=== PATIENT | male | born 1945 | race Caucasian/White ===

== ENCOUNTER → 2017-04-29 11:17 | Outpatient (CLI) | payer MEDICARE, MEDICAID, SELFPAY ==
[2017-04-29 11:34] LABS: Basophils # 0.1 K/mm3 (0-0.2); Basophils % 1.1 % (0.1-2.0); Eosinophils # 0.4 K/mm3 (0.0-0.4); Eosinophils % 6.4 % (0.1-12.0); Hematocrit 41.9 % (42.0-52.0); Hemoglobin 13.8 g/dL (14.1-18.0); Lymphocytes # 1.3 K/mm3 (0.7-4.5); Mean Corpuscular HGB Conc 32.9 g/dL (31.8-35.4); Mean Corpuscular Volume 94.3 fl (80-94); Mean Platelet Volume 7.2 fl (7.4-10.4); Monocytes # 0.4 K/mm3 (0.1-1.0); Monocytes % 6.3 % (1.7-9.3); Neutrophils # 3.6 K/mm3 (1.8-7.8); Neutrophils % 64.2 % (37.0-80.0); Platelet Count 290 K/mm3 (142-424); Red Blood Count 4.44 M/mm3 (4.60-6.20); Red Cell Distribution Width 13.5 % (11.5-17.5); White Blood Count 5.7 K/mm3 (4.8-10.8)
[2017-04-29 13:14] LABS: Alanine Aminotransferase 19 U/L (12-78); Albumin Level 4.4 gm/dL (3.4-5.0); Albumin/Globulin Ratio 1.9 (1.1-1.8); Alkaline Phosphatase 128 U/L (46-116); Anion Gap 10.5 mEq/L (5-15); Aspartate Amino Transferase 20 U/L (15-37); Bilirubin,Total 0.6 mg/dL (0.2-1.0); Blood Urea Nitrogen 12 mg/dL (7-18); Calcium 9.3 mg/dL (8.5-10.1); Carbon Dioxide 29 mmol/L (21.0-32.0); Chloride 106 mmol/L (98-107); Creatinine,Serum 1.09 mg/dL (0.70-1.30); Estimated Glomerular Filt Rate 66 ml/min (>60); GFR (African American) 80 ML/MIN (>60); Globulin 2.3 gm/dl (1.3-3.2); Glucose 102 mg/dL (74-106); Potassium 4.5 mmoL/L (3.5-5.1); Sodium 141 mmol/L (136-145); Total Protein,Serum 6.7 gm/dL (6.4-8.2)
== END ==
PROVIDERS: PCP Internal Medicine; Visit Provider Internal Medicine
DX: C90.00 Multiple myeloma not having achieved remission (principal)
CPT/HCPCS: 36415; 80053; 85025

== ENCOUNTER → 2017-05-05 11:16 | Outpatient (CLI) | payer MEDICARE, MEDICAID, SELFPAY ==
[2017-05-05 13:10] LABS: Anion Gap 9.9 mEq/L (5-15); Blood Urea Nitrogen 13 mg/dL (7-18); Carbon Dioxide 29 mmol/L (21.0-32.0); Chloride 104 mmol/L (98-107); Creatinine,Serum 0.95 mg/dL (0.70-1.30); Estimated Glomerular Filt Rate 78 ml/min (>60); GFR (African American) 94 ML/MIN (>60); Glucose 88 mg/dL (74-106); Potassium 3.9 mmoL/L (3.5-5.1); Sodium 139 mmol/L (136-145)
[2017-06-25 12:19] LABS: Miscellaneous Test SEE SEPERATE REPORT
== END ==
PROVIDERS: PCP Internal Medicine; Visit Provider Internal Medicine
DX: C90.00 Multiple myeloma not having achieved remission (principal)
CPT/HCPCS: 36415; 80048; 88184; 88185

== ENCOUNTER → 2017-06-15 10:38 | Outpatient (CLI) | payer MEDICARE, MEDICAID, SELFPAY ==
[2017-06-15 10:54] LABS: Basophils % 1.3 % (0.1-2.0); Eosinophils # 0.1 K/mm3 (0.0-0.4); Eosinophils % 2.7 % (0.1-12.0); Hematocrit 38.6 % (42.0-52.0); Hemoglobin 12.8 g/dL (14.1-18.0); Lymphocytes # 0.8 K/mm3 (0.7-4.5); Lymphocytes % 23.7 K/mm3 (10-50); Mean Corpuscular HGB Conc 33.2 g/dL (31.8-35.4); Mean Corpuscular Hemoglobin 31.4 pg (27.0-31.2); Mean Corpuscular Volume 94.8 fl (80-94); Mean Platelet Volume 7.3 fl (7.4-10.4); Monocytes # 0.4 K/mm3 (0.1-1.0); Monocytes % 11.6 % (1.7-9.3); Neutrophils % 60.7 % (37.0-80.0); Platelet Count 340 K/mm3 (142-424); Red Blood Count 4.08 M/mm3 (4.60-6.20); Red Cell Distribution Width 14.1 % (11.5-17.5); White Blood Count 3.3 K/mm3 (4.8-10.8)
[2017-06-15 11:26] LABS: Alanine Aminotransferase 31 U/L (12-78); Albumin Level 3.5 gm/dL (3.4-5.0); Albumin/Globulin Ratio 1.2 (1.1-1.8); Alkaline Phosphatase 178 U/L (46-116); Anion Gap 8.8 mEq/L (5-15); Aspartate Amino Transferase 23 U/L (15-37); Bilirubin,Total 0.8 mg/dL (0.2-1.0); Blood Urea Nitrogen 10 mg/dL (7-18); Calcium 8.9 mg/dL (8.5-10.1); Carbon Dioxide 29 mmol/L (21.0-32.0); Chloride 102 mmol/L (98-107); Estimated Glomerular Filt Rate 73 ml/min (>60); GFR (African American) 89 ML/MIN (>60); Globulin 2.9 gm/dl (1.3-3.2); Glucose 100 mg/dL (74-106); Potassium 3.8 mmoL/L (3.5-5.1); Sodium 136 mmol/L (136-145); Total Protein,Serum 6.4 gm/dL (6.4-8.2)
--- NOTE | 2017-06-17 13:48 | SW/DCPLANNER ---
Follow up phone call 05/06/17 BRIEN: Patient stated that he was having a bad day yesterday with a lot of pain in his legs. Patient has stated that today is a better day and he did not have any needs for any further resources at this time. Date of visit: 05/05/17
== END ==
PROVIDERS: Visit Provider Internal Medicine
DX: C90.00 Multiple myeloma not having achieved remission (principal); R63.6 Underweight
CPT/HCPCS: 36415; 80053; 85025

== ENCOUNTER → 2017-07-12 11:06 | Outpatient (CLI) | payer MEDICARE, MEDICAID, SELFPAY ==
[2017-07-13 10:24] LABS: Immunoglobulin G, Qn 455 mg/dL (700-1600)
[2017-07-13 13:45] LABS: Immunoglobulin A, Qn 227 mg/dL (61-437); Immunoglobulin M, Qn 47 mg/dL (15-143)
[2017-07-13 15:17] LABS: Albumin 3.7 g/dL (2.9-4.4); Alpha-1-Globulin 0.2 g/dL (0.0-0.4); Alpha-2-Globulin 0.7 g/dL (0.4-1.0); Gamma Globulin 0.5 g/dL (0.4-1.8)
== END ==
PROVIDERS: Visit Provider Nurse Practitioner
DX: C90.00 Multiple myeloma not having achieved remission (principal)
CPT/HCPCS: 36415; 82784; 84165

== ENCOUNTER → 2017-09-21 09:48 | Outpatient (CLI) | payer MEDICARE, MEDICAID, SELFPAY ==
[2017-09-21 10:33] LABS: Basophils # 0.1 K/mm3 (0-0.2); Basophils % 1.5 % (0.1-2.0); Eosinophils # 0.4 K/mm3 (0.0-0.4); Eosinophils % 7.1 % (0.1-12.0); Hematocrit 43.8 % (42.0-52.0); Hemoglobin 13.9 g/dL (14.1-18.0); Lymphocytes # 1.4 K/mm3 (0.7-4.5); Lymphocytes % 26.1 K/mm3 (10-50); Mean Corpuscular HGB Conc 31.8 g/dL (31.8-35.4); Mean Corpuscular Hemoglobin 30.1 pg (27.0-31.2); Mean Corpuscular Volume 94.7 fl (80-94); Monocytes # 0.4 K/mm3 (0.1-1.0); Monocytes % 6.5 % (1.7-9.3); Neutrophils # 3.1 K/mm3 (1.8-7.8); Neutrophils % 58.7 % (37.0-80.0); Platelet Count 285 K/mm3 (142-424); Red Blood Count 4.62 M/mm3 (4.60-6.20); Red Cell Distribution Width 13.7 % (11.5-17.5); White Blood Count 5.3 K/mm3 (4.8-10.8)
[2017-09-21 11:13] LABS: Alanine Aminotransferase 26 U/L (12-78); Albumin Level 4.1 gm/dL (3.4-5.0); Albumin/Globulin Ratio 1.6 (1.1-1.8); Alkaline Phosphatase 133 U/L (46-116); Anion Gap 11.3 mEq/L (5-15); Aspartate Amino Transferase 23 U/L (15-37); Bilirubin,Total 0.6 mg/dL (0.2-1.0); Blood Urea Nitrogen 13 mg/dL (7-18); Calcium 9.4 mg/dL (8.5-10.1); Carbon Dioxide 30 mmol/L (21.0-32.0); Chloride 103 mmol/L (98-107); Creatinine,Serum 1.16 mg/dL (0.70-1.30); Estimated Glomerular Filt Rate 62 ml/min (>60); GFR (African American) 75 ML/MIN (>60); Globulin 2.5 gm/dl (1.3-3.2); Glucose 100 mg/dL (74-106); Potassium 4.3 mmoL/L (3.5-5.1); Sodium 140 mmol/L (136-145); Total Protein,Serum 6.6 gm/dL (6.4-8.2)
== END ==
PROVIDERS: Visit Provider Internal Medicine
DX: C90.00 Multiple myeloma not having achieved remission (principal)
CPT/HCPCS: 36415; 80053; 85025

== ENCOUNTER → 2018-01-26 09:51 | Outpatient (CLI) | payer MEDICARE, MEDICAID, SELFPAY ==
[2018-01-26 10:27] LABS: Basophils # 0.1 K/mm3 (0-0.2); Basophils % 1.5 % (0.1-2.0); Eosinophils # 0.5 K/mm3 (0.0-0.4); Eosinophils % 7.4 % (0.1-12.0); Hematocrit 42.2 % (42.0-52.0); Hemoglobin 13.9 g/dL (14.1-18.0); Lymphocytes # 1.5 K/mm3 (0.7-4.5); Lymphocytes % 23.5 K/mm3 (10-50); Mean Corpuscular HGB Conc 33.1 g/dL (31.8-35.4); Mean Corpuscular Hemoglobin 31.2 pg (27.0-31.2); Mean Corpuscular Volume 94.2 fl (80-94); Mean Platelet Volume 6.7 fl (7.4-10.4); Monocytes # 0.4 K/mm3 (0.1-1.0); Monocytes % 5.6 % (1.7-9.3); Neutrophils % 62.1 % (37.0-80.0); Platelet Count 392 K/mm3 (142-424); Red Blood Count 4.47 M/mm3 (4.60-6.20); Red Cell Distribution Width 13.2 % (11.5-17.5); White Blood Count 6.5 K/mm3 (4.8-10.8)
[2018-01-26 11:26] LABS: Alanine Aminotransferase 23 U/L (12-78); Albumin Level 3.9 gm/dL (3.4-5.0); Albumin/Globulin Ratio 1.4 (1.1-1.8); Alkaline Phosphatase 139 U/L (46-116); Anion Gap 11.3 mEq/L (5-15); Aspartate Amino Transferase 21 U/L (15-37); Bilirubin,Total 0.6 mg/dL (0.2-1.0); Blood Urea Nitrogen 15 mg/dL (7-18); Calcium 9.2 mg/dL (8.5-10.1); Carbon Dioxide 30 mmol/L (21.0-32.0); Chloride 102 mmol/L (98-107); Creatinine,Serum 1.24 mg/dL (0.70-1.30); Estimated Glomerular Filt Rate 57 ml/min (>60); GFR (African American) 69 ML/MIN (>60); Globulin 2.7 gm/dl (1.3-3.2); Glucose 101 mg/dL (74-106); Potassium 4.3 mmoL/L (3.5-5.1); Sodium 139 mmol/L (136-145); Total Protein,Serum 6.6 gm/dL (6.4-8.2)
[2018-01-28 19:16] LABS: Immunofixation, Urine Comment: (.)
== END ==
PROVIDERS: PCP Internal Medicine; Visit Provider Internal Medicine
DX: C90.00 Multiple myeloma not having achieved remission (principal)
CPT/HCPCS: 36415; 80053; 85025; 86335

== ENCOUNTER → 2018-02-03 11:16 | Outpatient (CLI) | payer MEDICARE, MEDICAID, SELFPAY ==
[2018-02-04 14:22] LABS: Free Kappa Lt Chains 18.4 mg/L (3.3-19.4); Free Lambda Lt Chains 44.3 mg/L (5.7-26.3); Immunoglobulin A, Qn 327 mg/dL (61-437); Immunoglobulin G, Qn 686 mg/dL (700-1600); Immunoglobulin M, Qn 76 mg/dL (15-143)
[2018-02-04 15:17] LABS: Albumin 3.9 g/dL (2.9-4.4); Alpha-1-Globulin 0.2 g/dL (0.0-0.4); Alpha-2-Globulin 0.7 g/dL (0.4-1.0); Gamma Globulin 0.7 g/dL (0.4-1.8); Protein, Total 6.5 g/dL (6.0-8.5)
== END ==
PROVIDERS: PCP Internal Medicine; Visit Provider Internal Medicine Medical Oncology
DX: C90.00 Multiple myeloma not having achieved remission (principal)
CPT/HCPCS: 36415; 82784; 83883; 84155; 84165; 86334

== ENCOUNTER → 2018-02-10 12:57 | Outpatient (CLI) | payer MEDICARE, MEDICAID, SELFPAY ==
--- NOTE | 2018-02-10 13:06 | CT_ITS ---
EXAM: CT LUNG LOW DOSE WO CONTRAST COMPARISON: Previous CT chest 05/14/2015. HISTORY: 1 /2 pack per day for 59- 60 years = near 30 pack-year.. Currently smoking. No symptoms or signs of lung cancer FINDINGS: Indeterminate/Non-actionable Nodules(Category2/3) at: RIGHT UPPER LOBE Small focal area of density appear stable in overall size at the RUL. This more linear density density most likely reflects stable scarring -as seen on axial image 30. Slightly thickened about the airway here may be very slightly more evident... . More anteriorly on axial slice 30 note stable small 5.5 mm more stellate area of stable scarring at the medial aspect of the anterior RUL. Also seen on sagittal image 36. Stable .Indeterminate/Suspicious Lung Nodules([id number]): At LEFT UPPER LOBE Recommend pulmonary consult to review and possibly further evaluation , vs close follow-up.. Most significant finding seen on axial image 37. At the L UL. since 2016 CT chest There is now a New density measuring 13 mm transverse x 7.5 mm AP x 10 mm nodular density at L UL.. Slight irregular margins with Tiny dot area of central lucency. Question very early central cavitation? Vs associated branch bronchial airway? The larger main associated airway in this segment can be seen passing passing along the along the superior margin this density, on sagittal image 65.. Conceivably could be similar process as to the area described at R UL but is overall more concerning, particularly as a new feature since 2016... With this appearance suggests pulmonary consultation for possible sampling (possibly via small bronchoscopy given the more central location.)... Or Consider follow-up PET/CT or a subsequent CT with contrast over the next few weeks. . LUNG Emphysema: Prominent centrilobular emphysematous changes prominent centrlobar emphysematous changes. COPD,. Bleb formation bilaterally particular notable towards the lung bases (right lung base more so than left). The largest bleb. Measuring over now at the 11 cm length 3.6 cm AP. Smaller blebs flanking the mediastinum again noted... No focal pneumonia . Linear fibrotic scarring most evident toward lung bases. Particularly evident above left hemidiaphragm but overall unchanged since 2016. . A few Small scattered benign noncalcified granulomas bilaterally also noted Airways disease: borderline to mild airway thickening most evident toward lung bases. Apical pleural and parenchymal scarring bilaterally appear stable. ----- Mediastinum. No significant mediastinal adenopathy. . No hilar adenopathy. Aorta mild Dilatation aortic root measures 3.8 cm. Mild dilated aortic arch it measures up to 3.5 cm. . Generous caliber pulmonary arteries bilaterally may reflect developing pulmonary hypertension. No PE evident. Upper abdomen. Stable enhancing nodule, dome of the liver unchanged since 2016... 6.5 mm size X 7 mm size.. It can be followed Partially imaged adrenals appear stable. The left adrenal generous but stable. There are some scattered air-fluid levels of the right and transverse colon which may reflect some liquid stool. Nonspecific. --- IMPRESSION:--- 1. Prominent COPD.. Advanced emphysematous changes, Bleb formationChronic lung changes bilateral. 2.... Lung RADS Category: 4B... Indeterminate, mild suspicious lung nodule SPARKLE . Warrants pulmonary consult &/review Since 2016, now see a New developing indeterminate/mildly suspicious nodule at L UL, measuring over 13 mm mm x 7.5 mm..x10mm Recommend Pulmonary consultation to review/ & consider for possible sampling,... ( Vs perhaps alternatively follow-up CT/PET, or CT chest with contrast follow-up over the next a 2-3 months.) 3..... Right Upper Lobe- -Two Small stable irregular areas of density-with n
== END ==
PROVIDERS: PCP Internal Medicine; Visit Provider Internal Medicine Medical Oncology
DX: Z12.2 Encounter for screening for malignant neoplasm of respiratory organs (principal); Z87.891 Personal history of nicotine dependence

== ENCOUNTER → 2018-02-15 11:04 | Outpatient (CLI) | payer MEDICARE, MEDICAID, SELFPAY ==
[2018-02-15 11:58] LABS: Basophils % 0.7 % (0.1-2.0); Eosinophils # 0.3 K/mm3 (0.0-0.4); Eosinophils % 5.5 % (0.1-12.0); Lymphocytes # 1.4 K/mm3 (0.7-4.5); Lymphocytes % 26.8 K/mm3 (10-50); Mean Corpuscular HGB Conc 33.3 g/dL (31.8-35.4); Mean Corpuscular Hemoglobin 31.9 pg (27.0-31.2); Mean Corpuscular Volume 95.9 fl (80-94); Mean Platelet Volume 6.8 fl (7.4-10.4); Monocytes # 0.2 K/mm3 (0.1-1.0); Monocytes % 3.9 % (1.7-9.3); Neutrophils # 3.4 K/mm3 (1.8-7.8); Neutrophils % 63.1 % (37.0-80.0); Platelet Count 290 K/mm3 (142-424); Red Blood Count 4.69 M/mm3 (4.60-6.20); Red Cell Distribution Width 13.5 % (11.5-17.5); White Blood Count 5.4 K/mm3 (4.8-10.8)
[2018-02-15 13:00] LABS: Alanine Aminotransferase 26 U/L (12-78); Albumin Level 4.7 gm/dL (3.4-5.0); Albumin/Globulin Ratio 1.4 (1.1-1.8); Alkaline Phosphatase 151 U/L (46-116); Anion Gap 14.3 mEq/L (5-15); Aspartate Amino Transferase 27 U/L (15-37); Bilirubin,Total 0.9 mg/dL (0.2-1.0); Blood Urea Nitrogen 11 mg/dL (7-18); Calcium 9.5 mg/dL (8.5-10.1); Carbon Dioxide 28 mmol/L (21.0-32.0); Chloride 102 mmol/L (98-107); Creatinine,Serum 1.16 mg/dL (0.70-1.30); Estimated Glomerular Filt Rate 62 ml/min (>60); GFR (African American) 75 ML/MIN (>60); Globulin 3.4 gm/dl (1.3-3.2); Glucose 93 mg/dL (74-106); Potassium 4.3 mmoL/L (3.5-5.1); Sodium 140 mmol/L (136-145); Total Protein,Serum 8.1 gm/dL (6.4-8.2)
[2018-02-16 15:17] LABS: Albumin 4.5 g/dL (2.9-4.4); Alpha-1-Globulin 0.2 g/dL (0.0-0.4); Alpha-2-Globulin 0.7 g/dL (0.4-1.0); Gamma Globulin 0.8 g/dL (0.4-1.8); Immunoglobulin A, Qn 354 mg/dL (61-437); Immunoglobulin G, Qn 759 mg/dL (700-1600); Protein, Total 7.3 g/dL (6.0-8.5)
[2018-02-16 16:22] LABS: Free Kappa Lt Chains 20.8 mg/L (3.3-19.4); Free Lambda Lt Chains 51.3 mg/L (5.7-26.3)
[2018-02-16 18:35] LABS: Immunoglobulin M, Qn 100 mg/dL (15-143)
== END ==
PROVIDERS: Visit Provider Internal Medicine Medical Oncology
DX: C90.00 Multiple myeloma not having achieved remission (principal)
CPT/HCPCS: 36415; 80053; 82784; 83883; 84155; 84165; 85025; 86334

== ENCOUNTER → 2018-05-26 11:21 | Outpatient (CLI) | payer MEDICARE, MEDICAID, SELFPAY ==
[2018-05-26 12:02] LABS: Basophils # 0.1 K/mm3 (0-0.2); Basophils % 1.1 % (0.1-2.0); Eosinophils # 0.3 K/mm3 (0.0-0.4); Hemoglobin 14.5 g/dL (14.1-18.0); Lymphocytes # 1.2 K/mm3 (0.7-4.5); Lymphocytes % 25.2 % (10-50); Mean Corpuscular Hemoglobin 31.4 pg (27.0-31.2); Mean Corpuscular Volume 95.2 fl (80-94); Mean Platelet Volume 6.5 fl (7.4-10.4); Monocytes # 0.3 K/mm3 (0.1-1.0); Neutrophils # 2.8 K/mm3 (1.8-7.8); Neutrophils % 59.6 % (37.0-80.0); Platelet Count 258 K/mm3 (142-424); Red Blood Count 4.63 M/mm3 (4.60-6.20); Red Cell Distribution Width 13.7 % (11.5-17.5); White Blood Count 4.8 K/mm3 (4.8-10.8)
[2018-05-26 12:38] LABS: Alanine Aminotransferase 28 U/L (12-78); Albumin Level 4.4 gm/dL (3.4-5.0); Albumin/Globulin Ratio 1.5 (1.1-1.8); Alkaline Phosphatase 114 U/L (46-116); Anion Gap 14.2 mEq/L (5-15); Aspartate Amino Transferase 20 U/L (15-37); Bilirubin,Total 0.7 mg/dL (0.2-1.0); Blood Urea Nitrogen 10 mg/dL (7-18); Calcium 9.7 mg/dL (8.5-10.1); Carbon Dioxide 30 mmol/L (21.0-32.0); Chloride 101 mmol/L (98-107); Creatinine,Serum 1.25 mg/dL (0.70-1.30); Estimated Glomerular Filt Rate 57 ml/min (>60); GFR (African American) 69 ML/MIN (>60); Globulin 2.9 gm/dl (1.3-3.2); Glucose 100 mg/dL (74-106); Potassium 5.2 mmoL/L (3.5-5.1); Sodium 140 mmol/L (136-145); Total Protein,Serum 7.3 gm/dL (6.4-8.2)
[2018-05-27 14:26] LABS: Alpha-1-Globulin 0.2 g/dL (0.0-0.4); Alpha-2-Globulin 0.8 g/dL (0.4-1.0); Free Lambda Lt Chains 55.1 mg/L (5.7-26.3); Gamma Globulin 0.8 g/dL (0.4-1.8); Protein, Total 6.9 g/dL (6.0-8.5)
[2018-05-27 15:15] LABS: Immunoglobulin A, Qn 396 mg/dL (61-437); Immunoglobulin G, Qn 645 mg/dL (700-1600)
[2018-05-27 17:39] LABS: Immunoglobulin M, Qn 67 mg/dL (15-143)
== END ==
PROVIDERS: Visit Provider Internal Medicine Medical Oncology
DX: C90.00 Multiple myeloma not having achieved remission (principal)
CPT/HCPCS: 36415; 80053; 82784; 83883; 84155; 84165; 85025; 86334

== ENCOUNTER → 2018-08-25 10:50 | Outpatient (CLI) | payer MEDICARE, MEDICAID, SELFPAY ==
[2018-08-25 11:10] LABS: Basophils # 0.1 K/mm3 (0-0.2); Basophils % 1.4 % (0.1-2.0); Eosinophils # 0.3 K/mm3 (0.0-0.4); Hematocrit 41.2 % (42.0-52.0); Lymphocytes # 1.6 K/mm3 (0.7-4.5); Lymphocytes % 30.6 % (10-50); Mean Corpuscular Hemoglobin 32.1 pg (27.0-31.2); Mean Corpuscular Volume 94.5 fl (80-94); Mean Platelet Volume 6.8 fl (7.4-10.4); Monocytes # 0.3 K/mm3 (0.1-1.0); Monocytes % 5.7 % (1.7-9.3); Neutrophils # 2.9 K/mm3 (1.8-7.8); Neutrophils % 56.3 % (37.0-80.0); Platelet Count 330 K/mm3 (142-424); Red Blood Count 4.36 M/mm3 (4.60-6.20); Red Cell Distribution Width 13.7 % (11.5-17.5); White Blood Count 5.1 K/mm3 (4.8-10.8)
[2018-08-25 13:19] LABS: Alanine Aminotransferase 24 U/L (12-78); Albumin Level 4.3 gm/dL (3.4-5.0); Albumin/Globulin Ratio 1.3 (1.1-1.8); Alkaline Phosphatase 142 U/L (46-116); Anion Gap 13.5 mEq/L (5-15); Aspartate Amino Transferase 20 U/L (15-37); Bilirubin,Total 0.9 mg/dL (0.2-1.0); Blood Urea Nitrogen 17 mg/dL (7-18); Calcium 9.5 mg/dL (8.5-10.1); Carbon Dioxide 29 mmol/L (21.0-32.0); Chloride 102 mmol/L (98-107); Creatinine,Serum 1.19 mg/dL (0.70-1.30); Estimated Glomerular Filt Rate 60 ml/min (>60); GFR (African American) 73 ML/MIN (>60); Globulin 3.2 gm/dl (1.3-3.2); Glucose 96 mg/dL (74-106); Potassium 4.5 mmoL/L (3.5-5.1); Sodium 140 mmol/L (136-145); Total Protein,Serum 7.5 gm/dL (6.4-8.2)
[2018-08-26 15:12] LABS: Albumin 4.3 g/dL (2.9-4.4); Alpha-1-Globulin 0.1 g/dL (0.0-0.4); Alpha-2-Globulin 0.7 g/dL (0.4-1.0); Free Kappa Lt Chains 18.5 mg/L (3.3-19.4); Free Lambda Lt Chains 73.5 mg/L (5.7-26.3); Gamma Globulin 0.7 g/dL (0.4-1.8); Protein, Total 6.9 g/dL (6.0-8.5)
== END ==
PROVIDERS: Visit Provider Internal Medicine Medical Oncology
DX: C90.00 Multiple myeloma not having achieved remission (principal)
CPT/HCPCS: 36415; 80053; 83883; 84155; 84165; 85025

== ENCOUNTER → 2018-09-21 10:03 | Outpatient (CLI) | payer MEDICARE, MEDICAID, SELFPAY ==
[2018-09-21 10:18] LABS: Basophils % 0.2 % (0.1-2.0); Eosinophils # 0.4 K/mm3 (0.0-0.4); Eosinophils % 5.5 % (0.1-12.0); Hematocrit 42.6 % (42.0-52.0); Hemoglobin 13.9 g/dL (14.1-18.0); Lymphocytes # 0.9 K/mm3 (0.7-4.5); Lymphocytes % 12.2 % (10-50); Mean Corpuscular HGB Conc 32.7 g/dL (31.8-35.4); Mean Corpuscular Hemoglobin 32.3 pg (27.0-31.2); Mean Corpuscular Volume 98.7 fl (80-94); Monocytes # 0.3 K/mm3 (0.1-1.0); Monocytes % 3.9 % (1.7-9.3); Neutrophils # 5.4 K/mm3 (1.8-7.8); Neutrophils % 78.1 % (37.0-80.0); Platelet Count 345 K/mm3 (142-424); Red Blood Count 4.31 M/mm3 (4.60-6.20); Red Cell Distribution Width 13.7 % (11.5-17.5); White Blood Count 6.9 K/mm3 (4.8-10.8)
[2018-09-21 12:02] LABS: Alanine Aminotransferase 29 U/L (12-78); Albumin Level 3.9 gm/dL (3.4-5.0); Albumin/Globulin Ratio 1.4 (1.1-1.8); Alkaline Phosphatase 125 U/L (46-116); Anion Gap 13.5 mEq/L (5-15); Aspartate Amino Transferase 21 U/L (15-37); Bilirubin,Total 0.8 mg/dL (0.2-1.0); Blood Urea Nitrogen 12 mg/dL (7-18); Calcium 9.1 mg/dL (8.5-10.1); Carbon Dioxide 28 mmol/L (21.0-32.0); Chloride 104 mmol/L (98-107); Creatinine,Serum 1.17 mg/dL (0.70-1.30); Estimated Glomerular Filt Rate 61 ml/min (>60); GFR (African American) 74 ML/MIN (>60); Globulin 2.7 gm/dl (1.3-3.2); Glucose 94 mg/dL (74-106); Potassium 4.5 mmoL/L (3.5-5.1); Sodium 141 mmol/L (136-145); Total Protein,Serum 6.6 gm/dL (6.4-8.2)
== END ==
PROVIDERS: Visit Provider Internal Medicine Medical Oncology
DX: C90.00 Multiple myeloma not having achieved remission (principal)
CPT/HCPCS: 36415; 80053; 85025

== ENCOUNTER → 2018-10-10 10:42 | Outpatient (CLI) | payer MEDICARE, MEDICAID, SELFPAY ==
[2018-10-10 11:58] LABS: Basophils % 0.4 % (0.1-2.0); Eosinophils # 0.2 K/mm3 (0.0-0.4); Eosinophils % 4.2 % (0.1-12.0); Hematocrit 39.8 % (42.0-52.0); Hemoglobin 12.7 g/dL (14.1-18.0); Lymphocytes # 0.7 K/mm3 (0.7-4.5); Lymphocytes % 13.4 % (10-50); Mean Corpuscular HGB Conc 31.8 g/dL (31.8-35.4); Mean Corpuscular Hemoglobin 31.4 pg (27.0-31.2); Mean Corpuscular Volume 98.5 fl (80-94); Mean Platelet Volume 7.4 fl (7.4-10.4); Monocytes # 0.3 K/mm3 (0.1-1.0); Monocytes % 5.7 % (1.7-9.3); Neutrophils % 76.2 % (37.0-80.0); Platelet Count 330 K/mm3 (142-424); Red Blood Count 4.04 M/mm3 (4.60-6.20); Red Cell Distribution Width 14.9 % (11.5-17.5); White Blood Count 5.2 K/mm3 (4.8-10.8)
[2018-10-10 12:27] LABS: Alanine Aminotransferase 42 U/L (12-78); Albumin Level 3.2 gm/dL (3.4-5.0); Albumin/Globulin Ratio 1.2 (1.1-1.8); Alkaline Phosphatase 101 U/L (46-116); Anion Gap 13.4 mEq/L (5-15); Aspartate Amino Transferase 21 U/L (15-37); Bilirubin,Total 0.9 mg/dL (0.2-1.0); Blood Urea Nitrogen 15 mg/dL (7-18); Calcium 8.4 mg/dL (8.5-10.1); Carbon Dioxide 27 mmol/L (21.0-32.0); Chloride 101 mmol/L (98-107); Creatinine,Serum 1.02 mg/dL (0.70-1.30); Estimated Glomerular Filt Rate 72 ml/min (>60); GFR (African American) 87 ML/MIN (>60); Globulin 2.6 gm/dl (1.3-3.2); Glucose 88 mg/dL (74-106); Potassium 4.4 mmoL/L (3.5-5.1); Sodium 137 mmol/L (136-145); Total Protein,Serum 5.8 gm/dL (6.4-8.2)
[2018-10-11 14:11] LABS: Free Kappa Lt Chains 20.9 mg/L (3.3-19.4); Free Lambda Lt Chains 42.2 mg/L (5.7-26.3); Immunoglobulin A, Qn 333 mg/dL (61-437); Immunoglobulin G, Qn 453 mg/dL (700-1600); Immunoglobulin M, Qn 48 mg/dL (15-143)
[2018-10-11 15:10] LABS: Albumin 3.3 g/dL (2.9-4.4); Alpha-1-Globulin 0.2 g/dL (0.0-0.4); Alpha-2-Globulin 0.9 g/dL (0.4-1.0); Gamma Globulin 0.6 g/dL (0.4-1.8); Protein, Total 5.9 g/dL (6.0-8.5)
== END ==
PROVIDERS: Visit Provider Internal Medicine Medical Oncology
DX: C90.00 Multiple myeloma not having achieved remission (principal)
CPT/HCPCS: 36415; 80053; 82784; 83883; 84155; 84165; 85025; 86334

== ENCOUNTER → 2018-11-07 10:48 | Outpatient (CLI) | payer MEDICARE, MEDICAID, SELFPAY ==
[2018-11-07 11:23] LABS: Basophils # 0.1 K/mm3 (0-0.2); Basophils % 1.1 % (0.1-2.0); Eosinophils # 0.5 K/mm3 (0.0-0.4); Eosinophils % 8.9 % (0.1-12.0); Hematocrit 40.4 % (42.0-52.0); Hemoglobin 12.7 g/dL (14.1-18.0); Lymphocytes # 1.2 K/mm3 (0.7-4.5); Lymphocytes % 22.8 % (10-50); Mean Corpuscular HGB Conc 31.4 g/dL (31.8-35.4); Mean Corpuscular Hemoglobin 29.9 pg (27.0-31.2); Mean Corpuscular Volume 95.2 fl (80-94); Mean Platelet Volume 7.1 fl (7.4-10.4); Monocytes # 0.4 K/mm3 (0.1-1.0); Monocytes % 6.8 % (1.7-9.3); Neutrophils # 3.2 K/mm3 (1.8-7.8); Neutrophils % 60.4 % (37.0-80.0); Platelet Count 260 K/mm3 (142-424); Red Blood Count 4.24 M/mm3 (4.60-6.20); Red Cell Distribution Width 15.3 % (11.5-17.5); White Blood Count 5.2 K/mm3 (4.8-10.8)
[2018-11-07 12:40] LABS: Alanine Aminotransferase 34 U/L (12-78); Albumin Level 3.5 gm/dL (3.4-5.0); Albumin/Globulin Ratio 1.3 (1.1-1.8); Alkaline Phosphatase 118 U/L (46-116); Anion Gap 12.7 mEq/L (5-15); Aspartate Amino Transferase 17 U/L (15-37); Bilirubin,Total 0.8 mg/dL (0.2-1.0); Blood Urea Nitrogen 16 mg/dL (7-18); Calcium 8.8 mg/dL (8.5-10.1); Carbon Dioxide 29 mmol/L (21.0-32.0); Chloride 104 mmol/L (98-107); Creatinine,Serum 1.17 mg/dL (0.70-1.30); Estimated Glomerular Filt Rate 61 ml/min (>60); GFR (African American) 74 ML/MIN (>60); Globulin 2.8 gm/dl (1.3-3.2); Glucose 89 mg/dL (74-106); Potassium 4.7 mmoL/L (3.5-5.1); Sodium 141 mmol/L (136-145); Total Protein,Serum 6.3 gm/dL (6.4-8.2)
[2018-11-08 14:15] LABS: Free Lambda Lt Chains 53.8 mg/L (5.7-26.3)
== END ==
PROVIDERS: Visit Provider Internal Medicine Medical Oncology
DX: C90.00 Multiple myeloma not having achieved remission (principal)
CPT/HCPCS: 36415; 80053; 83883; 85025

== ENCOUNTER → 2018-12-05 10:54 | Outpatient (CLI) | payer MEDICARE, MEDICAID, SELFPAY ==
[2018-12-05 11:42] LABS: Basophils % 0.4 % (0.1-2.0); Eosinophils # 0.6 K/mm3 (0.0-0.4); Eosinophils % 7.3 % (0.1-12.0); Hematocrit 39.5 % (42.0-52.0); Hemoglobin 13.1 g/dL (14.1-18.0); Lymphocytes % 13.4 % (10-50); Mean Corpuscular HGB Conc 33.3 g/dL (31.8-35.4); Mean Corpuscular Hemoglobin 32.8 pg (27.0-31.2); Mean Corpuscular Volume 98.6 fl (80-94); Mean Platelet Volume 6.7 fl (7.4-10.4); Monocytes # 0.5 K/mm3 (0.1-1.0); Monocytes % 6.8 % (1.7-9.3); Neutrophils # 5.6 K/mm3 (1.8-7.8); Neutrophils % 72.1 % (37.0-80.0); Platelet Count 246 K/mm3 (142-424); Red Cell Distribution Width 15.4 % (11.5-17.5); White Blood Count 7.7 K/mm3 (4.8-10.8)
[2018-12-05 13:41] LABS: Alanine Aminotransferase 34 U/L (12-78); Albumin Level 3.6 gm/dL (3.4-5.0); Albumin/Globulin Ratio 1.4 (1.1-1.8); Alkaline Phosphatase 107 U/L (46-116); Anion Gap 13.2 mEq/L (5-15); Aspartate Amino Transferase 19 U/L (15-37); Bilirubin,Total 1.1 mg/dL (0.2-1.0); Blood Urea Nitrogen 16 mg/dL (7-18); Calcium 8.8 mg/dL (8.5-10.1); Carbon Dioxide 29 mmol/L (21.0-32.0); Chloride 105 mmol/L (98-107); Creatinine,Serum 1.08 mg/dL (0.70-1.30); Estimated Glomerular Filt Rate 67 ml/min (>60); GFR (African American) 81 ML/MIN (>60); Globulin 2.5 gm/dl (1.3-3.2); Glucose 87 mg/dL (74-106); Potassium 4.2 mmoL/L (3.5-5.1); Sodium 143 mmol/L (136-145); Total Protein,Serum 6.1 gm/dL (6.4-8.2)
[2018-12-06 16:28] LABS: Free Kappa Lt Chains 19.9 mg/L (3.3-19.4); Free Lambda Lt Chains 38.2 mg/L (5.7-26.3)
[2018-12-07 00:26] LABS: Immunoglobulin G, Qn 444 mg/dL (700-1600)
== END ==
PROVIDERS: Visit Provider Internal Medicine Hematology & Oncology
DX: C90.00 Multiple myeloma not having achieved remission (principal)
CPT/HCPCS: 36415; 80053; 82784; 83883; 85025

== ENCOUNTER → 2019-01-02 10:33 | Outpatient (CLI) | payer MEDICARE, MEDICAID, SELFPAY ==
[2019-01-02 12:09] LABS: Basophils % 0.7 % (0.1-2.0); Eosinophils # 0.4 K/mm3 (0.0-0.4); Eosinophils % 7.6 % (0.1-12.0); Hematocrit 36.7 % (42.0-52.0); Hemoglobin 11.9 g/dL (14.1-18.0); Lymphocytes # 0.8 K/mm3 (0.7-4.5); Lymphocytes % 14.6 % (10-50); Mean Corpuscular HGB Conc 32.4 g/dL (31.8-35.4); Mean Corpuscular Hemoglobin 32.4 pg (27.0-31.2); Mean Corpuscular Volume 99.9 fl (80-94); Mean Platelet Volume 6.9 fl (7.4-10.4); Monocytes # 0.4 K/mm3 (0.1-1.0); Monocytes % 7.1 % (1.7-9.3); Neutrophils # 3.8 K/mm3 (1.8-7.8); Neutrophils % 69.9 % (37.0-80.0); Platelet Count 278 K/mm3 (142-424); Red Blood Count 3.68 M/mm3 (4.60-6.20); Red Cell Distribution Width 15.5 % (11.5-17.5); White Blood Count 5.4 K/mm3 (4.8-10.8)
[2019-01-02 12:45] LABS: Alanine Aminotransferase 27 U/L (12-78); Albumin Level 3.2 gm/dL (3.4-5.0); Albumin/Globulin Ratio 1.3 (1.1-1.8); Alkaline Phosphatase 108 U/L (46-116); Anion Gap 10.9 mEq/L (5-15); Aspartate Amino Transferase 15 U/L (15-37); Bilirubin,Total 0.9 mg/dL (0.2-1.0); Blood Urea Nitrogen 11 mg/dL (7-18); Calcium 8.5 mg/dL (8.5-10.1); Carbon Dioxide 30 mmol/L (21.0-32.0); Chloride 103 mmol/L (98-107); Creatinine,Serum 0.93 mg/dL (0.70-1.30); Estimated Glomerular Filt Rate 79 ml/min (>60); GFR (African American) 96 ML/MIN (>60); Globulin 2.5 gm/dl (1.3-3.2); Glucose 87 mg/dL (74-106); Potassium 3.9 mmoL/L (3.5-5.1); Sodium 140 mmol/L (136-145); Total Protein,Serum 5.7 gm/dL (6.4-8.2)
[2019-01-03 14:10] LABS: Albumin 3.3 g/dL (2.9-4.4); Alpha-1-Globulin 0.2 g/dL (0.0-0.4); Alpha-2-Globulin 0.7 g/dL (0.4-1.0); Gamma Globulin 0.5 g/dL (0.4-1.8); Protein, Total 5.5 g/dL (6.0-8.5)
[2019-01-03 15:16] LABS: Immunoglobulin A, Qn 337 mg/dL (61-437); Immunoglobulin G, Qn 446 mg/dL (700-1600)
[2019-01-03 17:18] LABS: Free Kappa Lt Chains 22.4 mg/L (3.3-19.4); Free Lambda Lt Chains 55.1 mg/L (5.7-26.3)
[2019-01-05 06:10] LABS: Immunoglobulin M, Qn 67 mg/dL (15-143)
== END ==
PROVIDERS: Visit Provider Internal Medicine Medical Oncology
DX: C90.00 Multiple myeloma not having achieved remission (principal)
CPT/HCPCS: 36415; 80053; 82784; 83883; 84155; 84165; 85025; 86334

== ENCOUNTER → 2019-01-30 11:55 | Outpatient (CLI) | payer MEDICARE, MEDICAID, SELFPAY ==
[2019-01-30 12:15] LABS: Basophils % 0.3 % (0.1-2.0); Eosinophils # 0.5 K/mm3 (0.0-0.4); Eosinophils % 7.7 % (0.1-12.0); Hematocrit 39.7 % (42.0-52.0); Hemoglobin 11.7 g/dL (14.1-18.0); Lymphocytes # 0.9 K/mm3 (0.7-4.5); Lymphocytes % 15.8 % (10-50); Mean Corpuscular HGB Conc 29.4 g/dL (31.8-35.4); Mean Corpuscular Hemoglobin 30.5 pg (27.0-31.2); Mean Corpuscular Volume 103.8 fl (80-94); Mean Platelet Volume 7.7 fl (7.4-10.4); Monocytes # 0.5 K/mm3 (0.1-1.0); Monocytes % 8.6 % (1.7-9.3); Neutrophils # 3.9 K/mm3 (1.8-7.8); Neutrophils % 67.5 % (37.0-80.0); Platelet Count 224 K/mm3 (142-424); Red Blood Count 3.82 M/mm3 (4.60-6.20); Red Cell Distribution Width 16.1 % (11.5-17.5); White Blood Count 5.8 K/mm3 (4.8-10.8)
[2019-01-30 14:53] LABS: Alanine Aminotransferase 20 U/L (12-78); Albumin Level 3.5 gm/dL (3.4-5.0); Albumin/Globulin Ratio 1.3 (1.1-1.8); Alkaline Phosphatase 106 U/L (46-116); Anion Gap 10.1 mEq/L (5-15); Aspartate Amino Transferase 13 U/L (15-37); Bilirubin,Total 1.3 mg/dL (0.2-1.0); Blood Urea Nitrogen 11 mg/dL (7-18); Calcium 8.5 mg/dL (8.5-10.1); Carbon Dioxide 30 mmol/L (21.0-32.0); Chloride 104 mmol/L (98-107); Creatinine,Serum 0.99 mg/dL (0.70-1.30); Estimated Glomerular Filt Rate 74 ml/min (>60); GFR (African American) 89 ML/MIN (>60); Globulin 2.6 gm/dl (1.3-3.2); Glucose 94 mg/dL (74-106); Potassium 4.1 mmoL/L (3.5-5.1); Sodium 140 mmol/L (136-145); Total Protein,Serum 6.1 gm/dL (6.4-8.2)
[2019-01-31 17:09] LABS: Free Kappa Lt Chains 18.4 mg/L (3.3-19.4); Free Lambda Lt Chains 43.8 mg/L (5.7-26.3)
== END ==
PROVIDERS: Visit Provider Internal Medicine Medical Oncology
DX: C90.00 Multiple myeloma not having achieved remission (principal)
CPT/HCPCS: 36415; 80053; 83883; 85025

== ENCOUNTER → 2019-03-06 10:21 | Outpatient (CLI) | payer MEDICARE, MEDICAID, SELFPAY ==
[2019-03-06 11:42] LABS: Basophils # 0.1 K/mm3 (0-0.2); Basophils % 1.7 % (0.1-2.0); Eosinophils # 0.2 K/mm3 (0.0-0.4); Eosinophils % 4.4 % (0.1-12.0); Hematocrit 36.2 % (42.0-52.0); Hemoglobin 11.8 g/dL (14.1-18.0); Lymphocytes # 0.6 K/mm3 (0.7-4.5); Lymphocytes % 12.4 % (10-50); Mean Corpuscular HGB Conc 32.5 g/dL (31.8-35.4); Mean Corpuscular Hemoglobin 33.5 pg (27.0-31.2); Mean Corpuscular Volume 103.1 fl (80-94); Mean Platelet Volume 7.6 fl (7.4-10.4); Monocytes # 0.2 K/mm3 (0.1-1.0); Monocytes % 4.9 % (1.7-9.3); Neutrophils # 3.7 K/mm3 (1.8-7.8); Neutrophils % 76.5 % (37.0-80.0); Platelet Count 288 K/mm3 (142-424); Red Blood Count 3.52 M/mm3 (4.60-6.20); White Blood Count 4.9 K/mm3 (4.8-10.8)
[2019-03-06 12:36] LABS: Alanine Aminotransferase 22 U/L (12-78); Albumin Level 3.2 gm/dL (3.4-5.0); Albumin/Globulin Ratio 1.2 (1.1-1.8); Alkaline Phosphatase 125 U/L (46-116); Anion Gap 11.4 mEq/L (5-15); Aspartate Amino Transferase 19 U/L (15-37); Bilirubin,Total 0.6 mg/dL (0.2-1.0); Blood Urea Nitrogen 11 mg/dL (7-18); Calcium 8.3 mg/dL (8.5-10.1); Carbon Dioxide 28 mmol/L (21.0-32.0); Chloride 106 mmol/L (98-107); Creatinine,Serum 0.96 mg/dL (0.70-1.30); Estimated Glomerular Filt Rate 77 ml/min (>60); GFR (African American) 93 ML/MIN (>60); Globulin 2.6 gm/dl (1.3-3.2); Glucose 94 mg/dL (74-106); Potassium 4.4 mmoL/L (3.5-5.1); Sodium 141 mmol/L (136-145); Total Protein,Serum 5.8 gm/dL (6.4-8.2)
[2019-03-07 13:24] LABS: Immunoglobulin A, Qn 354 mg/dL (61-437); Immunoglobulin G, Qn 429 mg/dL (700-1600)
[2019-03-07 15:00] LABS: Immunoglobulin M, Qn 30 mg/dL (15-143)
[2019-03-07 15:19] LABS: Albumin 3.4 g/dL (2.9-4.4); Alpha-1-Globulin 0.1 g/dL (0.0-0.4); Alpha-2-Globulin 0.7 g/dL (0.4-1.0); Free Lambda Lt Chains 54.9 mg/L (5.7-26.3); Gamma Globulin 0.4 g/dL (0.4-1.8); Protein, Total 5.6 g/dL (6.0-8.5)
== END ==
PROVIDERS: Visit Provider Internal Medicine Medical Oncology
DX: C90.00 Multiple myeloma not having achieved remission (principal)
CPT/HCPCS: 36415; 80053; 82784; 83883; 84155; 84165; 85025; 86334

== ENCOUNTER → 2019-03-20 15:41 | Outpatient (CLI) | payer MEDICARE, OTHER, SELFPAY ==
--- NOTE | 2019-03-20 15:47 | CA_ITS ---
APPROVED REPORT Left Lower Extremity Venous Study for DVT. Hand Gluer And Slicer: ELKIN Indications Lower Extremity Pain: Lower Extremity Edema: Left Lower Extremity Swelling: Left Patient is a poor historian. He states that is left leg has progressively gotten worse over the last week. He doesn't know when the swelling or pain actually began. He denies trauma. Patient left leg is swollen, red, and hot to the touch. Vein Imaging CFV (L): compressive, spontaneous, phasic, augmentation FEM (L): compressive, spontaneous, phasic, augmentation POP (L): compressive, spontaneous, phasic, augmentation PTV (L): Compressible GSV (L): compressive, spontaneous, phasic, augmentation SSV (L): Compressible Peroneals (L):Compressible GAS (L): Compressible Conclusion No evidence of DVT or superficial thrombophlebitis in the veins scanned of the left lower extremity. Patient has a complex cystic mass that extends from popliteal fossa down to the mid calf. May represent complex Bakers cyst. MRI may add further information There is diffuse subq edema in the calf Electronically signed by : Demetrius Bunch MD 03/22/2019 19:03:32
== END ==
PROVIDERS: PCP Internal Medicine; Visit Provider Internal Medicine
DX: M79.605 Pain in left leg (principal); R60.0 Localized edema
CPT/HCPCS: 93971

== ENCOUNTER → 2019-04-06 07:50 | Outpatient (CLI) | payer MEDICARE, OTHER, SELFPAY ==
--- NOTE | 2019-04-06 07:54 | MR_ITS ---
PROCEDURE: MR KNEE LT WO CON CLINICAL INDICATION: LEFT LEG PAIN, EDEMA, BAKERS CYST A the COMPARISON: CA VENOUS DOPPLER LE LT from 03/20/2019 MR LOWER LEG LT WO CON from 04/06/2019 TECHNIQUE: Routine multiplanar multi echo sequences are performed without gadolinium enhancement. FINDINGS: The cruciate ligaments, collateral ligaments, patellar tendon, and quadriceps tendon have an unremarkable appearance. There is a nondisplaced horizontal tear involving the posterior horn of the medial meniscus best demonstrated on the coronal images.. The patellar cartilage is well preserved. There is diffuse subcutaneous edema in the lower thigh knee and upper leg. There is a small to medium-sized knee joint effusion. See MRI leg report for description of fluid collection in the calf IMPRESSION: 1. Nondisplaced horizontal tear posterior horn medial meniscus. 2. Diffuse subcutaneous edema with small to medium-sized knee joint effusion. There is a fluid collection in the mid to upper calf described further in the leg MRI report. Dictated by: Demetrius Bunch MD 04/09/2019 08:39 Electronically signed by Demetrius Bunch MD in [place] 04/09/2019 08:39
--- NOTE | 2019-04-06 07:55 | MR_ITS ---
PROCEDURE: MR LOWER LEG LT WO CON CLINICAL INDICATION: LEFT LEG PAIN, EDEMA, BAKERS CYST Left knee and leg swelling. Possible gilbert cyst in the upper calf on a previous Doppler COMPARISON: Venous Doppler 03/20/2019 TECHNIQUE: Routine multiplanar multi echo sequences are performed without gadolinium enhancement. FINDINGS: There is a multi-septated fluid collection within the upper leg medially measuring 9.3 cm longitudinal and 1.6 cm transverse. This is just medial to the proximal tibial shaft proximally and distally extends into the space between the gastrocnemius and soleus muscle. This may have a thin extension to the knee joint and could very well be due to a Gilbert's cyst. There is diffuse subcutaneous edema about the leg. IMPRESSION: Septated fluid collection in the upper leg medially as described above measuring 9.3 x 1.6 cm which may be related to a complex Gilbert's cyst. Diffuse edema of the leg. Dictated by: Demetrius Bunch MD 04/09/2019 08:54 Electronically signed by Demetrius Bunch MD in [place] 04/09/2019 08:54
== END ==
PROVIDERS: PCP Internal Medicine; Visit Provider Internal Medicine
DX: M25.562 Pain in left knee (principal); R60.0 Localized edema
CPT/HCPCS: 73718; 73721

== ENCOUNTER → 2019-04-17 10:56 | Outpatient (CLI) | payer MEDICARE, OTHER, SELFPAY ==
[2019-04-17 11:37] LABS: Basophils # 0.1 K/mm3 (0-0.2); Basophils % 0.5 % (0.1-2.0); Eosinophils # 0.1 K/mm3 (0.0-0.4); Eosinophils % 1.3 % (0.1-12.0); Hemoglobin 10.3 g/dL (14.1-18.0); Lymphocytes % 11.3 % (10-50); Mean Corpuscular HGB Conc 29.5 g/dL (31.8-35.4); Mean Corpuscular Hemoglobin 31.1 pg (27.0-31.2); Mean Corpuscular Volume 105.5 fl (80-94); Mean Platelet Volume 7.6 fl (7.4-10.4); Monocytes # 0.6 K/mm3 (0.1-1.0); Monocytes % 7.3 % (1.7-9.3); Neutrophils # 6.7 K/mm3 (1.8-7.8); Neutrophils % 79.5 % (37.0-80.0); Platelet Count 259 K/mm3 (142-424); Red Blood Count 3.32 M/mm3 (4.60-6.20); Red Cell Distribution Width 17.2 % (11.5-17.5); White Blood Count 8.5 K/mm3 (4.8-10.8)
[2019-04-17 12:45] LABS: Alanine Aminotransferase 17 U/L (12-78); Albumin/Globulin Ratio 1.1 (1.1-1.8); Alkaline Phosphatase 119 U/L (46-116); Anion Gap 15.4 mEq/L (5-15); Aspartate Amino Transferase 14 U/L (15-37); Bilirubin,Total 1.2 mg/dL (0.2-1.0); Blood Urea Nitrogen 16 mg/dL (7-18); Calcium 8.1 mg/dL (8.5-10.1); Carbon Dioxide 23 mmol/L (21.0-32.0); Chloride 102 mmol/L (98-107); Creatinine,Serum 1.03 mg/dL (0.70-1.30); Estimated Glomerular Filt Rate 71 ml/min (>60); GFR (African American) 85 ML/MIN (>60); Globulin 2.7 gm/dl (1.3-3.2); Glucose 108 mg/dL (74-106); Potassium 4.4 mmoL/L (3.5-5.1); Sodium 136 mmol/L (136-145); Total Protein,Serum 5.7 gm/dL (6.4-8.2)
[2019-04-18 14:34] LABS: Albumin 3.3 g/dL (2.9-4.4); Alpha-1-Globulin 0.3 g/dL (0.0-0.4); Alpha-2-Globulin 0.9 g/dL (0.4-1.0); Gamma Globulin 0.5 g/dL (0.4-1.8)
[2019-04-18 16:10] LABS: Free Kappa Lt Chains 23.7 mg/L (3.3-19.4); Free Lambda Lt Chains 53.1 mg/L (5.7-26.3); Immunoglobulin A, Qn 380 mg/dL (61-437); Immunoglobulin G, Qn 490 mg/dL (700-1600); Immunoglobulin M, Qn 29 mg/dL (15-143)
== END ==
PROVIDERS: Visit Provider Internal Medicine Medical Oncology
DX: Z79.899 Other long term (current) drug therapy (principal)
CPT/HCPCS: 36415; 80053; 82784; 83883; 84155; 84165; 85025; 86334

== ENCOUNTER → 2019-04-21 12:39 | Outpatient (CLI) | payer MEDICARE, OTHER, SELFPAY ==
--- NOTE | 2019-04-21 12:44 | XR_ITS ---
PROCEDURE: XR KNEE LT 4V CLINICAL INDICATION: knee pain COMPARISON: No exams were available for comparison FINDINGS: No fracture or dislocation. No lytic or blastic change. There is normal mineralization. The joint spaces are well-preserved. No significant degenerative/arthritic changes. No erosive changes evident. Other findings:There is mild chondrocalcinosis of the medial and lateral meniscus. IMPRESSION: Chondrocalcinosis otherwise negative Dictated by: Demetrius Bunch MD 04/21/2019 13:31 Electronically signed by Demetrius Bunch MD in [place] 04/21/2019 13:31
== END ==
PROVIDERS: PCP Internal Medicine; Visit Provider Orthopaedic Surgery
DX: M25.562 Pain in left knee (principal); M79.89 Other specified soft tissue disorders
CPT/HCPCS: 73564

== ENCOUNTER → 2019-04-24 15:55 | Outpatient (CLI) | payer MEDICARE, OTHER, SELFPAY ==
--- NOTE | 2019-04-24 16:04 | CA_ITS ---
APPROVED REPORT Right Lower Extremity Venous Study for DVT. Online Communications Manager: CT Indications Lower Extremity Pain: Right Lower Extremity Edema: Right Vein Imaging CFV (R): compressive, spontaneous, phasic, augmentationcompressive, spontaneous, phasic, augmentation SFJ (R): compressive, spontaneous, phasic, augmentation FEM (R): compressive, spontaneous, phasic, augmentation POP (R): compressive, spontaneous, phasic, augmentation DFV (R): compressive, spontaneous, phasic, augmentation PTV (R): compressive, spontaneous, phasic, augmentation GSV (R): compressive, spontaneous, phasic, augmentation SSV (R): compressive, spontaneous, phasic, augmentation Peroneals (R):compressive, spontaneous, phasic, augmentation GAS (R): compressive, spontaneous, phasic, augmentation Findings RLE Venous negative for DVT/SVT Vessels fully compressible. Nonvascularized anechoic mass appears to be a fluid collection and is consistent with a ribera's cyst. Conclusion No evidence of DVT or superficial thrombophlebitis in the veins scanned of the right lower extremity. Bakers cyst Electronically signed by : Demetrius Bunch MD 04/25/2019 16:10:02
== END ==
PROVIDERS: PCP Internal Medicine; Visit Provider Internal Medicine
DX: M79.604 Pain in right leg (principal); R60.9 Edema, unspecified
CPT/HCPCS: 93971

== ENCOUNTER → 2019-05-08 09:31 | Outpatient (CLI) | payer MEDICARE, OTHER, SELFPAY ==
--- NOTE | 2019-05-08 09:31 | US_ITS ---
APPROVED REPORT Exam Type: Lower Extremity Segmental Pressures Seed Specialist: Jessica Ga RDCS Indications Claudication: Edema Current Smoker Pressures/Indices Right Indices Left Indices Brachial 123.00 mmHg Brachial 124.00 mmHg Low Thigh 120.00 mmHg 0.97 Low Thigh 118.00 mmHg 0.95 Calf 107.00 mmHg 0.86 Calf 125.00 mmHg 1.01 Ankle(PT) 161.00 mmHg 1.30 Ankle(PT) 142.00 mmHg 1.15 Ankle(DP) 125.00 mmHg 1.01 Ankle(DP) 137.00 mmHg 1.10 Digit 109.00 mmHg 0.88 Digit 104.00 mmHg 0.84 Post Exercise Pressures/Indices Right Left 1.30 KARIE 1.20 Findings R KARIE 1.3 L KARIE 1.2 R TBI .9 L TBI .8 NORMAL PULSES/WAVEFORMS Conclusion R KARIE 1.3 L KARIE 1.2 R TBI .9 L TBI .8 NORMAL PULSES/WAVEFORMS Electronically signed by : Omar Koroma, 05/09/2019 10:14:48
== END ==
PROVIDERS: PCP Internal Medicine; Visit Provider Orthopaedic Surgery
DX: R09.89 Other specified symptoms and signs involving the circulatory and respiratory systems (principal); M79.662 Pain in left lower leg
CPT/HCPCS: 93923

== ENCOUNTER → 2019-06-19 11:01 | Outpatient (CLI) | payer MEDICARE, OTHER, SELFPAY ==
[2019-06-19 11:37] LABS: Basophils % 0.8 % (0.1-2.0); Eosinophils # 0.3 K/mm3 (0.0-0.4); Eosinophils % 5.2 % (0.1-12.0); Hematocrit 36.9 % (42.0-52.0); Hemoglobin 11.6 g/dL (14.1-18.0); Lymphocytes # 1.1 K/mm3 (0.7-4.5); Lymphocytes % 20.7 % (10-50); Mean Corpuscular HGB Conc 31.5 g/dL (31.8-35.4); Mean Corpuscular Hemoglobin 32.9 pg (27.0-31.2); Mean Corpuscular Volume 104.5 fl (80-94); Mean Platelet Volume 7.9 fl (7.4-10.4); Monocytes # 0.3 K/mm3 (0.1-1.0); Monocytes % 6.2 % (1.7-9.3); Neutrophils # 3.4 K/mm3 (1.8-7.8); Neutrophils % 67.1 % (37.0-80.0); Platelet Count 245 K/mm3 (142-424); Red Blood Count 3.53 M/mm3 (4.60-6.20); Red Cell Distribution Width 16.3 % (11.5-17.5); White Blood Count 5.1 K/mm3 (4.8-10.8)
[2019-06-19 12:22] LABS: Alanine Aminotransferase 15 U/L (12-78); Albumin Level 3.8 g/dl (3.5-5.0); Albumin/Globulin Ratio 1.7 (1.1-1.8); Alkaline Phosphatase 111 U/L (38-126); Anion Gap 12.6 mEq/L (5-15); Aspartate Amino Transferase 22 U/L (17-59); Bilirubin,Total 0.8 mg/dl (0.2-1.3); Blood Urea Nitrogen 10 mg/dl (9-20); Calcium 9.2 mg/dl (8.4-10.2); Carbon Dioxide 28 mmol/L (22.0-30.0); Chloride 102 mmol/L (98-107); Estimated Glomerular Filt Rate 82 ml/min (>60); GFR (African American) 100 ML/MIN (>60); Globulin 2.3 g/dL (1.3-3.2); Glucose 95 mg/dl (74-100); Potassium 4.6 mmoL/L (3.5-5.1); Sodium 138 mmol/L (136-145); Total Protein,Serum 6.1 g/dl (6.3-8.2)
[2019-06-20 16:45] LABS: Free Kappa Lt Chains 18.6 mg/L (3.3-19.4); Free Lambda Lt Chains 45.3 mg/L (5.7-26.3)
[2019-06-20 18:32] LABS: Albumin 3.5 g/dL (2.9-4.4); Alpha-1-Globulin 0.2 g/dL (0.0-0.4); Alpha-2-Globulin 0.8 g/dL (0.4-1.0); Gamma Globulin 0.5 g/dL (0.4-1.8)
== END ==
PROVIDERS: Visit Provider Internal Medicine Hematology & Oncology
DX: C90.00 Multiple myeloma not having achieved remission (principal)
CPT/HCPCS: 36415; 80053; 83883; 84155; 84165; 85025

== ENCOUNTER 2019-07-04 14:00 | Outpatient (RCR) | payer MEDICARE, OTHER, SELFPAY | END 2019-07-04 14:05 | disposition home or self-care (01) | LOC: PT 14:00 | PROVIDERS: PCP Internal Medicine; Visit Provider Internal Medicine | DX: I89.0 Lymphedema, not elsewhere classified (principal); M79.89 Other specified soft tissue disorders; M11.20 Other chondrocalcinosis, unspecified site | CPT/HCPCS: 97140; 97162; 97164; 97760 ==

== ENCOUNTER 2019-08-17 09:39 | Emergency (ER) | payer MEDICARE, OTHER, SELFPAY ==
[2019-08-17 09:40] VITALS: BP 134/66; PULSE 64; RESP 16; TEMP 36.9; O2SAT 98; BMI 16.2
[2019-08-17 09:50] VITALS: BMI 16.2
--- NOTE | 2019-08-17 09:51 | CT_ITS ---
PROCEDURE: CT ABDOMEN PELVIS WO CON CLINICAL INDICATION: ABD PAIN, BLEEDING FROM RECTUM, PAINFUL URINATION COMPARISON: ABDPELW CT ABD PELVIS W/ CONTRAST from 05/14/2015 TECHNIQUE: Axial images obtained with sagittal and coronal reformats. All CT scans at the facility use one or more dose reduction, viz: automated exposure control, ma/kV adjustment per patient size (including targeted exams where dose is matched to indication, i.e. head), or iterative reconstruction technique. FINDINGS: LOWER THORAX: There are panlobular emphysematous changes with bullous changes in the lung bases. ABDOMEN & PELVIS: There is bowel interposition on the right between the liver and the anterior abdominal wall. The liver, spleen, adrenal glands, and pancreas have an unremarkable unenhanced appearance. The gallbladder wall appears slightly thickened with some increased density of the gallbladder which could be due to stones and/or sludge. No renal or ureteral calculi. No hydronephrosis. No intestinal obstruction or free air. No evidence of appendicitis. There is thickening of the distal descending and sigmoid colon and rectum suggesting colitis/proctitis. No intestinal obstruction or free air. There is a moderate amount of retained colonic feces in the ascending and transverse colon. There are few scattered air-fluid levels within the small bowel in the pelvic region. These are nonspecific. The prostate is enlarged at 4.8 cm with central prostate calcifications. There are degenerative changes of the lumbar spine. There is mild dilatation of the mid abdominal aorta at 2.8 cm. IMPRESSION: 1. Panlobular emphysema with bullous changes in the lung bases. 2. Gallbladder wall appears slightly thickened with increased density of the gallbladder which could be due to stones and/or sludge. Gallbladder ultrasound may provide further evaluation. 3. Suspect colitis/proctitis of the distal descending and sigmoid colon. 4. Scattered air-fluid levels within the small bowel in the pelvic region. This is nonspecific. Multiple unopacified bowel loops in the abdomen or pelvis which could obscure or mimic pathology. If symptoms persist, consider repeat exam with IV and oral contrast. 5. Moderate amount of retained colonic feces in the ascending and transverse colon Dictated by: Demetrius Bunch MD 08/17/2019 11:17 Electronically signed by Demetrius Bunch MD in [place] 08/17/2019 11:17
--- NOTE | 2019-08-17 10:08 | PC.NURSE ---
Pt to rad.
--- NOTE | 2019-08-17 10:09 | PC.NURSE ---
PT TO RAD
[2019-08-17 10:12] LABS: Basophils # 0.1 K/mm3 (0-0.2); Basophils % 1.4 % (0.1-2.0); Eosinophils # 0.5 K/mm3 (0.0-0.4); Eosinophils % 8.8 % (0.1-12.0); Hematocrit 40.3 % (42.0-52.0); Hemoglobin 13.2 g/dL (14.1-18.0); Lymphocytes # 0.7 K/mm3 (0.7-4.5); Lymphocytes % 12.6 % (10-50); Mean Corpuscular HGB Conc 32.7 g/dL (31.8-35.4); Mean Corpuscular Volume 101.1 fl (80-94); Mean Platelet Volume 8.3 fl (7.4-10.4); Monocytes # 0.4 K/mm3 (0.1-1.0); Monocytes % 8.2 % (1.7-9.3); Neutrophils # 3.7 K/mm3 (1.8-7.8); Neutrophils % 69.1 % (37.0-80.0); Platelet Count 230 K/mm3 (142-424); Red Blood Count 3.99 M/mm3 (4.60-6.20); Red Cell Distribution Width 15.1 % (11.5-17.5); White Blood Count 5.4 K/mm3 (4.8-10.8)
[2019-08-17 10:14] LABS: Chloride 104 mmol/L (98-107); Potassium 3.7 mmoL/L (3.5-5.1); Sodium 138 mmol/L (136-145)
[2019-08-17 10:16] LABS: Blood Urea Nitrogen 11 mg/dl (9-20); Creatinine Clearance Estimated 50 mL/min (50-200); Estimated Glomerular Filt Rate 82 ml/min (>60); GFR (African American) 100 ML/MIN (>60)
[2019-08-17 10:17] LABS: Alanine Aminotransferase 17 U/L (12-78); Albumin/Globulin Ratio 1.6 (1.1-1.8); Alkaline Phosphatase 108 U/L (38-126); Anion Gap 10.7 mEq/L (5-15); Aspartate Amino Transferase 21 U/L (17-59); Bilirubin,Total 1.5 mg/dl (0.2-1.3); Calcium 9.3 mg/dl (8.4-10.2); Carbon Dioxide 27 mmol/L (22.0-30.0); Globulin 2.5 g/dL (1.3-3.2); Glucose 96 mg/dl (74-100); Total Protein,Serum 6.5 g/dl (6.3-8.2)
[2019-08-17 11:10] VITALS: BP 115/52; PULSE 50; O2SAT 100
--- NOTE | 2019-08-17 11:22 | PC.NURSE ---
Called [facility], Dr Aguayo will be returning call.
--- NOTE | 2019-08-17 11:23 | HMH.EDABDPAI ---
ED Disposition Clinical Impression: Colitis, Abdominal pain, Rectal bleeding Disposition: Home, Self-Care Condition on Discharge: Good Instructions: DI for Acute Abdomen Prescriptions: Ciprofloxacin HCl [Cipro 500mg Tab] 500 mg PO BID 10 Days #20 tab Transmission Status: Pending to [facility] [Flagyl 500mg Tablet] 500 mg PO TID 7 Days #21 tab Transmission Status: Pending to Clinic Pharm[facility] Referrals: Lyndon Mason [Primary Care Provider] - - Critical Care Critical Care Time: No Attestation: On 08/17/19, the high probability of a clinically significant, sudden or life threatening deterioration of the following system(s) required my full and direct attention, intervention and personal management. The time I documented below is in addition to time spent performing reported procedures but includes the following listed in this critical care notation. Medical Decision Making - Medical Records Medical records reviewed: Yes: I reviewed the patient's medical records. - Markel Inquiry Pt receiving controlled substance: No Vital Signs: 08/17/19 09:40 08/17/19 11:10 Temperature 98.4 F Temperature Source Oral Pulse Rate [Right Radial] 64 50 L Respiratory Rate 16 Blood Pressure [Right Arm] 134/66 115/52 L Blood Pressure Mean [Right Arm] 88 73 Blood Pressure Source [Right Arm] Automatic Cuff Automatic Cuff Blood Pressure Position [Right Arm] Sitting Sitting 02 Sat by Pulse Oximetry 98 100 Oxygen Delivery Method Room Air Room Air - Lab Data Lab results reviewed: Yes: I reviewed the patient's lab results. Lab Results 08/17/19 10:00: WBC 5.4, RBC 3.99 L, Hgb 13.2 L, Hct 40.3 L, MCV 101.1 H, MCH 33.0 H, MCHC 32.7, RDW 15.1, Plt Count 230, MPV 8.3, Neut % (Auto) 69.1, Lymph % (Auto) 12.6, [place] % (Auto) 8.2, Eos % (Auto) 8.8, Baso % (Auto) 1.4, Neut # (Auto) 3.7, Lymph # (Auto) 0.7, [place] # (Auto) 0.4, Eos # (Auto) 0.5 H, Baso # (Auto) 0.1 08/17/19 10:00: Sodium 138, Potassium 3.7, Chloride 104, Carbon Dioxide 27, Anion Gap 10.7, BUN 11, Creatinine 0.90, Estimated Creat Clear 50, Estimated GFR 82, Est GFR ( Amer) 100, Glucose 96, Calcium 9.3, Total Bilirubin 1.5 H, AST 21, ALT 17, Alkaline Phosphatase 108, Total Protein 6.5, Albumin 4.0, Globulin 2.5, Albumin/Globulin Ratio 1.6 Result diagrams: 08/17/19 10:00 08/17/19 10:00 Orders (Tests/Meds): ORDERS Category Date Time Status Occult Blood,Stool Stat Lab 08/17/19 09:51 Ordered Urinalysis and Microscopic Stat Lab 08/17/19 09:51 Ordered - CT Data CT Scan: Abdomen, Pelvis Time Received: 11:[address] Reviewed: Yes: I have viewed the radiologist's interpretation Preliminary Findings: Abnormal (1. Panlobular emphysema with bullous changes in the lung bases. ) Abdominal Pain HPI - General Chief Complaint: Abdominal Pain Stated Complaint: blood coming from rectum Time Seen by Provider: 08/17/19 11:23 Mode of Arrival: Ambulatory Limitations: No Limitations Description of Symptoms (Recalled from ER Triage Doc. by RN): PT C/O BLEEDING FROM RECTUM SINCE YESTERDAY EVENING. PT STATES THAT IT WORSENS WHEN HE FEELS THE NEED TO URINATE. PT C/O PAINFUL URINATION AND ABD PAIN. PT ADVISES THAT HE IS A CANCER PT. PT ALSO ADVISES THAT HE SAW DR MASON ON WEDNESDAY FOR A CYST TO HIS LOWER LT ABD/GROIN AREA. - History of Present Illness HPI narrative: 73-year-old gentleman presents the ED complaining of left lower quadrant abdominal pain. He states that the pain started yesterday and is progressively gotten worse as today has gone on. He rates his pain as 5 out of 10 and classifies a fullness sensation and also a colicky sensation at times and then a sharp sensation. Patient states that he does have some radiation which radiates down to the groin area. Patient states that exacerbating factors are caused when he increases intra-abdominal pressure and alleviating factors include bowel rest and not eating. Patient also states he key
[2019-08-17 11:50] VITALS: BP 124/78; PULSE 72; RESP 16; TEMP 36.8; O2SAT 97
== END 2019-08-17 11:58 | disposition home or self-care (01) ==
PROVIDERS: Emergency Provider Family Medicine; PCP Internal Medicine
DX: K52.9 Noninfective gastroenteritis and colitis, unspecified (principal); I10 Essential (primary) hypertension; F41.9 Anxiety disorder, unspecified; J44.9 Chronic obstructive pulmonary disease, unspecified; Z79.899 Other long term (current) drug therapy; F17.210 Nicotine dependence, cigarettes, uncomplicated
CPT/HCPCS: 74176; 80053; 85025; 99283

== ENCOUNTER → 2019-08-21 11:02 | Outpatient (CLI) | payer MEDICARE, OTHER, SELFPAY ==
[2019-08-21 11:36] LABS: Basophils % 1.2 % (0.1-2.0); Eosinophils # 0.3 K/mm3 (0.0-0.4); Eosinophils % 9.4 % (0.1-12.0); Hematocrit 35.5 % (42.0-52.0); Hemoglobin 11.7 g/dL (14.1-18.0); Lymphocytes # 0.8 K/mm3 (0.7-4.5); Lymphocytes % 23.2 % (10-50); Mean Corpuscular HGB Conc 32.8 g/dL (31.8-35.4); Mean Corpuscular Volume 100.7 fl (80-94); Mean Platelet Volume 8.6 fl (7.4-10.4); Monocytes # 0.4 K/mm3 (0.1-1.0); Neutrophils % 56.2 % (37.0-80.0); Platelet Count 280 K/mm3 (142-424); Red Blood Count 3.53 M/mm3 (4.60-6.20); Red Cell Distribution Width 15.2 % (11.5-17.5); White Blood Count 3.6 K/mm3 (4.8-10.8)
[2019-08-21 12:53] LABS: Alanine Aminotransferase 24 U/L (12-78); Albumin Level 3.6 g/dl (3.5-5.0); Albumin/Globulin Ratio 1.8 (1.1-1.8); Alkaline Phosphatase 83 U/L (38-126); Anion Gap 7.5 mEq/L (5-15); Aspartate Amino Transferase 41 U/L (17-59); Bilirubin,Total 0.7 mg/dl (0.2-1.3); Blood Urea Nitrogen 15 mg/dl (9-20); Calcium 9.1 mg/dl (8.4-10.2); Carbon Dioxide 25 mmol/L (22.0-30.0); Chloride 107 mmol/L (98-107); Estimated Glomerular Filt Rate 73 ml/min (>60); GFR (African American) 88 ML/MIN (>60); Glucose 108 mg/dl (74-100); Potassium 3.5 mmoL/L (3.5-5.1); Sodium 136 mmol/L (136-145); Total Protein,Serum 5.6 g/dl (6.3-8.2)
[2019-08-23 16:10] LABS: Free Kappa Lt Chains 15.6 mg/L (3.3-19.4); Free Lambda Lt Chains 37.9 mg/L (5.7-26.3)
== END ==
PROVIDERS: Visit Provider Internal Medicine Medical Oncology
DX: C90.00 Multiple myeloma not having achieved remission (principal)
CPT/HCPCS: 36415; 80053; 83883; 85025

== ENCOUNTER → 2019-09-25 15:29 | Outpatient (CLI) | payer MEDICARE, OTHER, SELFPAY ==
--- NOTE | 2019-09-25 16:07 | XR_ITS ---
PROCEDURE: XR CERVICAL SPINE 5V CLINICAL INDICATION: Multiple myeloma, neck pain COMPARISON: No exams were available for comparison FINDINGS: There is normal alignment. There is thoracic kyphosis as well as kyphosis of the cervical spine. 2 mm anterolisthesis of C5 on C6 with mild degenerative disc disease at C6-C7. No obvious lytic process apparent. There is biapical pleural thickening IMPRESSION: Thoracic and cervical kyphosis, no acute finding Degenerative changes cervical spine Dictated by: Demetrius Bunch MD 09/25/2019 17:13 Electronically signed by Demetrius Bunch MD in [place] 09/25/2019 17:13
== END ==
PROVIDERS: PCP Internal Medicine; Visit Provider Internal Medicine
DX: M54.2 Cervicalgia (principal)
CPT/HCPCS: 72050

== ENCOUNTER → 2019-10-30 13:57 | Outpatient (CLI) | payer MEDICARE, OTHER, SELFPAY ==
[2019-10-30 14:45] LABS: Basophils # 0.1 K/mm3 (0-0.2); Eosinophils # 0.2 K/mm3 (0.0-0.4); Eosinophils % 2.6 % (0.1-12.0); Hematocrit 34.7 % (42.0-52.0); Hemoglobin 11.3 g/dL (14.1-18.0); Lymphocytes # 1.1 K/mm3 (0.7-4.5); Lymphocytes % 18.7 % (10-50); Mean Corpuscular HGB Conc 32.6 g/dL (31.8-35.4); Mean Corpuscular Hemoglobin 33.7 pg (27.0-31.2); Mean Corpuscular Volume 103.3 fl (80-94); Mean Platelet Volume 7.3 fl (7.4-10.4); Monocytes # 0.3 K/mm3 (0.1-1.0); Monocytes % 5.4 % (1.7-9.3); Neutrophils # 4.3 K/mm3 (1.8-7.8); Neutrophils % 72.2 % (37.0-80.0); Platelet Count 437 K/mm3 (142-424); Red Blood Count 3.36 M/mm3 (4.60-6.20); Red Cell Distribution Width 16.6 % (11.5-17.5)
[2019-10-30 15:47] LABS: Chloride 102 mmol/L (98-107)
[2019-10-30 15:48] LABS: Potassium 4.9 mmoL/L (3.5-5.1); Sodium 137 mmol/L (136-145)
[2019-10-30 15:50] LABS: Alanine Aminotransferase 15 U/L (12-78); Alkaline Phosphatase 112 U/L (38-126); Aspartate Amino Transferase 25 U/L (17-59); Bilirubin,Total 0.5 mg/dl (0.2-1.3); Blood Urea Nitrogen 14 mg/dl (9-20); Estimated Glomerular Filt Rate 65 ml/min (>60); GFR (African American) 79 ML/MIN (>60)
[2019-10-30 15:51] LABS: Albumin Level 3.1 g/dl (3.5-5.0); Albumin/Globulin Ratio 1.3 (1.1-1.8); Anion Gap 9.9 mEq/L (5-15); Calcium 8.7 mg/dl (8.4-10.2); Carbon Dioxide 30 mmol/L (22.0-30.0); Globulin 2.4 g/dL (1.3-3.2); Glucose 105 mg/dl (74-100); Total Protein,Serum 5.5 g/dl (6.3-8.2)
[2019-11-01 15:16] LABS: Albumin 3.1 g/dL (2.9-4.4); Alpha-1-Globulin 0.2 g/dL (0.0-0.4); Alpha-2-Globulin 0.8 g/dL (0.4-1.0); Gamma Globulin 0.6 g/dL (0.4-1.8); Immunoglobulin A, Qn 316 mg/dL (61-437); Immunoglobulin G, Qn 484 mg/dL (603-1613); Protein, Total 5.5 g/dL (6.0-8.5)
[2019-11-01 15:27] LABS: Immunoglobulin M, Qn 36 mg/dL (15-143)
[2019-11-01 17:10] LABS: Free Kappa Lt Chains 26.2 mg/L (3.3-19.4); Free Lambda Lt Chains 63.4 mg/L (5.7-26.3)
== END ==
PROVIDERS: Visit Provider Internal Medicine Medical Oncology
DX: C90.00 Multiple myeloma not having achieved remission (principal)
CPT/HCPCS: 36415; 80053; 82784; 83883; 84155; 84165; 85025; 86334

== ENCOUNTER 2019-11-09 11:00 | Outpatient (RCR) | payer MEDICARE, OTHER, SELFPAY ==
--- NOTE | 2019-10-17 11:59 | HMH.PTOPEV ---
PT Outpatient Evaluation Rehab PT Outpatient Evaluation Start: 10/17/19 11:03 Freq: Status: Active Protocol: Document 10/17/19 11:47 SABA (Rec: 10/17/19 11:58 SABA [id number]) Electronically Signed By Frank Palacio, PT 10/17/19 11:47 Outpatient Therapy Subjective History Subjective History Patient is a 73 year old male presenting to outpatient PT with reports of acute cervical spine pain starting approx 10 days ago per patient report of insidious onset. Most recent imaging indicates cevical spine degenerative changes, as well as increased cervical and thoracic kyphosis . No reports of radicular symptoms. Comorbidities include hx of bone cancer and lumbar spine surgery. Chief Complaint Pain,Stiff Symptom Type Ache,Dull Symptoms Relieved By Rest/Positioning,Heat Symptoms Aggravated By Physical Activity Prior Functional Limitations None Current Functional Limitations Reaching,Lifting,Housework, Sleeping Symptom Description Constant but Variable Level of pain today (0-10) 5 Pain scale - at its best (0-10) 2 Pain scale - at its worst (0-10) 8 Cervical Eval Palpation Cervical Muscles R Cervical Paraspinal,L Cervical Paraspinal,R Suboccipital,L Suboccipital,R CT Junction,L CT Junction,R Upper Trapezius,L Upper Trapezius,R Thoracic Paraspinals,L Thoracic Paraspinals Cervical/Thoracic Palpation Findings Tenderness Flexibility Deficits Upper Trapezius Muscle Length (R) Mild Tightness,(L) Mild Tightness Levaetor Scapulae Muscle Length (R) Mild Tightness,(L) Mild Tightness Pectoralis Minor Muscle Length (R) Mild Tightness,(L) Mild Tightness Passive Joint Mobility Cervical PIVM Dec: R OA L OA R AA L AA R C2/3 L C2/3 R C3/4 L C3/4 R C4/5
== END 2019-11-09 11:05 | disposition home or self-care (01) ==
LOC: PT 11:00
PROVIDERS: PCP Internal Medicine; Visit Provider Internal Medicine
DX: M54.2 Cervicalgia (principal)
CPT/HCPCS: 97010; 97014; 97110; 97163; G0283

== ENCOUNTER → 2020-01-01 10:49 | Outpatient (CLI) | payer MEDICARE, OTHER, SELFPAY ==
[2020-01-01 11:14] LABS: Basophils % 0.1 % (0.1-2.0); Eosinophils # 0.3 K/mm3 (0.0-0.4); Hematocrit 36.3 % (42.0-52.0); Hemoglobin 12.3 g/dL (14.1-18.0); Lymphocytes # 0.8 K/mm3 (0.7-4.5); Lymphocytes % 12.6 % (10-50); Mean Corpuscular HGB Conc 33.9 g/dL (31.8-35.4); Mean Corpuscular Hemoglobin 33.7 pg (27.0-31.2); Mean Corpuscular Volume 99.3 fl (80-94); Mean Platelet Volume 8.1 fl (7.4-10.4); Monocytes # 0.5 K/mm3 (0.1-1.0); Monocytes % 8.2 % (1.7-9.3); Neutrophils # 4.8 K/mm3 (1.8-7.8); Neutrophils % 74.1 % (37.0-80.0); Platelet Count 227 K/mm3 (142-424); Red Blood Count 3.66 M/mm3 (4.60-6.20); Red Cell Distribution Width 14.7 % (11.5-17.5); White Blood Count 6.4 K/mm3 (4.8-10.8)
[2020-01-01 11:42] LABS: Chloride 105 mmol/L (98-107); Potassium 4.3 mmoL/L (3.5-5.1); Sodium 140 mmol/L (136-145)
[2020-01-01 11:44] LABS: Blood Urea Nitrogen 20 mg/dl (9-20); Estimated Glomerular Filt Rate 82 ml/min (>60); GFR (African American) 100 ML/MIN (>60)
[2020-01-01 11:45] LABS: Alanine Aminotransferase 16 U/L (12-78); Albumin Level 3.8 g/dl (3.5-5.0); Albumin/Globulin Ratio 1.8 (1.1-1.8); Alkaline Phosphatase 88 U/L (38-126); Anion Gap 10.3 mEq/L (5-15); Aspartate Amino Transferase 22 U/L (17-59); Bilirubin,Total 0.7 mg/dl (0.2-1.3); Calcium 9.2 mg/dl (8.4-10.2); Carbon Dioxide 29 mmol/L (22.0-30.0); Globulin 2.1 g/dL (1.3-3.2); Glucose 102 mg/dl (74-100); Total Protein,Serum 5.9 g/dl (6.3-8.2)
[2020-01-02 16:16] LABS: Free Lambda Lt Chains 30.7 mg/L (5.7-26.3)
[2020-01-02 17:27] LABS: Albumin 3.6 g/dL (2.9-4.4); Alpha-1-Globulin 0.2 g/dL (0.0-0.4); Alpha-2-Globulin 0.8 g/dL (0.4-1.0); Gamma Globulin 0.5 g/dL (0.4-1.8)
== END ==
PROVIDERS: Visit Provider Internal Medicine Medical Oncology
DX: C90.00 Multiple myeloma not having achieved remission (principal)
CPT/HCPCS: 36415; 80053; 83883; 84155; 84165; 85025

== ENCOUNTER → 2020-03-04 10:19 | Outpatient (CLI) | payer MEDICARE, OTHER, SELFPAY ==
[2020-03-04 11:21] LABS: Basophils % 0.7 % (0.1-2.0); Eosinophils # 0.6 K/mm3 (0.0-0.4); Hemoglobin 12.5 g/dL (14.1-18.0); Lymphocytes % 28.3 % (10-50); Mean Corpuscular Hemoglobin 33.4 pg (27.0-31.2); Mean Corpuscular Volume 104.6 fl (80-94); Mean Platelet Volume 8.1 fl (7.4-10.4); Monocytes # 0.3 K/mm3 (0.1-1.0); Monocytes % 9.2 % (1.7-9.3); Neutrophils # 1.7 K/mm3 (1.8-7.8); Neutrophils % 44.8 % (37.0-80.0); Platelet Count 198 K/mm3 (142-424); Red Blood Count 3.73 M/mm3 (4.60-6.20); Red Cell Distribution Width 15.7 % (11.5-17.5); White Blood Count 3.7 K/mm3 (4.8-10.8)
[2020-03-04 11:47] LABS: Alanine Aminotransferase 13 U/L (12-78); Albumin Level 3.7 g/dl (3.5-5.0); Albumin/Globulin Ratio 1.5 (1.1-1.8); Alkaline Phosphatase 119 U/L (38-126); Anion Gap 9.9 mEq/L (5-15); Aspartate Amino Transferase 20 U/L (17-59); Blood Urea Nitrogen 12 mg/dl (9-20); Calcium 8.9 mg/dl (8.4-10.2); Carbon Dioxide 30 mmol/L (22.0-30.0); Chloride 103 mmol/L (98-107); Estimated Glomerular Filt Rate 82 ml/min (>60); GFR (African American) 100 ML/MIN (>60); Globulin 2.5 g/dL (1.3-3.2); Glucose 86 mg/dl (74-100); Potassium 3.9 mmoL/L (3.5-5.1); Sodium 139 mmol/L (136-145); Total Protein,Serum 6.2 g/dl (6.3-8.2)
[2020-03-05 15:17] LABS: Albumin 3.6 g/dL (2.9-4.4); Alpha-1-Globulin 0.2 g/dL (0.0-0.4); Alpha-2-Globulin 0.8 g/dL (0.4-1.0); Free Kappa Lt Chains 28.5 mg/L (3.3-19.4); Free Lambda Lt Chains 63.1 mg/L (5.7-26.3); Gamma Globulin 0.5 g/dL (0.4-1.8); Immunoglobulin A, Qn 362 mg/dL (61-437); Immunoglobulin G, Qn 527 mg/dL (603-1613); Immunoglobulin M, Qn 70 mg/dL (15-143); Protein, Total 5.8 g/dL (6.0-8.5)
== END ==
PROVIDERS: Visit Provider Internal Medicine Medical Oncology
DX: C90.00 Multiple myeloma not having achieved remission (principal)
CPT/HCPCS: 36415; 80053; 82784; 83883; 84155; 84165; 85025; 86334

== ENCOUNTER → 2020-04-29 12:54 | Outpatient (CLI) | payer MEDICARE, OTHER, SELFPAY ==
--- NOTE | 2020-04-29 13:00 | MR_ITS ---
PROCEDURE: MR LUMBAR SPINE WO CON CLINICAL INDICATION: LBP LBP [id number]. NO PRIOR. COMPARISON: CT CT ABDOMEN PELVIS WO CON from 08/17/2019 TECHNIQUE: Standard multiplanar multiecho sequences are performed without contrast. 3-D MIP and myelographic images are also rendered and reviewed FINDINGS: There is slight reversal of the lumbar lordosis. There is mild lumbar scoliosis convex left. The spinal cord ends at the L1-L2 level. There is a transitional segment at the lumbosacral junction and is labeled as L5. There are only 11 sets of ribs. T12 is labeled as such and does not have a set a ribs. Please correlate with lateral radiograph if any intervention is contemplated. L1-L2: Bulging disc with facet and ligamentum hypertrophy with endplate osteophytes. There is bilateral lateral recess narrowing and mild bilateral foraminal narrowing. 2 mm anterolisthesis of L1. L2-L3: Degenerative disc disease with bulging disc with facet and ligamentum hypertrophy with canal stenosis and moderate to severe bilateral lateral recess narrowing and mild foraminal narrowing L3-L4: Degenerative disc disease with endplate osteophytes and bulging disc. There is prominent anterior osteophytes at this level and small posterior osteophytes with retrolisthesis of L3 on L4 3 mm with bulging disc which is eccentric toward the left with facet and ligamentum hypertrophy. There is severe left-sided lateral recess narrowing and severe left-sided foraminal narrowing with moderate right lateral recess and foraminal narrowing. There is 6 mm left lateral translation of L3 on L4. The L4-5: Severe degenerative disc disease with to mm retrolisthesis of L4 with bulging disc which is eccentric toward the left. Facet and ligamentum hypertrophy is present at this level. There is severe left-sided foraminal narrowing with impingement upon the exiting L4 nerve root. Moderate to severe right foraminal narrowing is present also with mild impingement upon the exiting nerve root. L5-S1: Unremarkable. There is mild dilatation of the mid abdominal aorta with eccentric plaque. The aorta measures approximately 2.9 cm transverse distally IMPRESSION: Severe lumbar spondylosis with canal stenosis lateral recess and foraminal narrowing. Please see above for detailed description at each level. There is reversal of the lumbar lordosis and mild lumbar scoliosis convex left. There are only 11 sets of ribs with T12 labeled as such with sacralization of the L5 vertebral body. Please correlate with lateral radiograph and current labeling system if any intervention is contemplated. Dictated by: Demetrius Bunch MD 05/01/2020 12:22 Demetrius Bunch MD in [place] 05/01/2020 12:22
== END ==
PROVIDERS: PCP Internal Medicine; Visit Provider Internal Medicine
DX: M54.5 Low back pain (principal)
CPT/HCPCS: 72148; 76376

== ENCOUNTER → 2020-05-06 11:14 | Outpatient (CLI) | payer MEDICARE, OTHER, SELFPAY ==
[2020-05-06 11:55] LABS: Basophils # 0.1 K/mm3 (0-0.2); Basophils % 1.5 % (0.1-2.0); Eosinophils # 0.2 K/mm3 (0.0-0.4); Eosinophils % 4.2 % (0.1-12.0); Hemoglobin 13.8 g/dL (14.1-18.0); Lymphocytes # 1.7 K/mm3 (0.7-4.5); Lymphocytes % 36.9 % (10-50); Mean Corpuscular HGB Conc 32.2 g/dL (31.8-35.4); Mean Corpuscular Hemoglobin 33.6 pg (27.0-31.2); Mean Corpuscular Volume 104.4 fl (80-94); Mean Platelet Volume 11.2 fl (7.4-10.4); Monocytes # 0.3 K/mm3 (0.1-1.0); Monocytes % 6.8 % (1.7-9.3); Neutrophils # 2.4 K/mm3 (1.8-7.8); Neutrophils % 50.7 % (37.0-80.0); Platelet Count 285 K/mm3 (142-424); Red Blood Count 4.12 M/mm3 (4.60-6.20); Red Cell Distribution Width 14.3 % (11.5-17.5); White Blood Count 4.7 K/mm3 (4.8-10.8)
[2020-05-06 12:51] LABS: Alanine Aminotransferase 11 U/L (12-78); Albumin Level 4.3 g/dl (3.5-5.0); Albumin/Globulin Ratio 1.7 (1.1-1.8); Alkaline Phosphatase 107 U/L (38-126); Anion Gap 11.4 mEq/L (5-15); Aspartate Amino Transferase 26 U/L (17-59); Bilirubin,Total 0.6 mg/dl (0.2-1.3); Blood Urea Nitrogen 13 mg/dl (9-20); Calcium 9.7 mg/dl (8.4-10.2); Carbon Dioxide 31 mmol/L (22.0-30.0); Chloride 102 mmol/L (98-107); Estimated Glomerular Filt Rate 65 ml/min (>60); GFR (African American) 79 ML/MIN (>60); Globulin 2.5 g/dL (1.3-3.2); Glucose 84 mg/dl (74-100); Potassium 4.4 mmoL/L (3.5-5.1); Sodium 140 mmol/L (136-145); Total Protein,Serum 6.8 g/dl (6.3-8.2)
[2020-05-07 14:32] LABS: Free Kappa Lt Chains 16.4 mg/L (3.3-19.4); Free Lambda Lt Chains 66.4 mg/L (5.7-26.3); Immunoglobulin A, Qn 364 mg/dL (61-437); Immunoglobulin G, Qn 578 mg/dL (603-1613); Immunoglobulin M, Qn 39 mg/dL (15-143)
[2020-05-07 17:18] LABS: Albumin 3.8 g/dL (2.9-4.4); Alpha-1-Globulin 0.2 g/dL (0.0-0.4); Alpha-2-Globulin 0.7 g/dL (0.4-1.0); Gamma Globulin 0.7 g/dL (0.4-1.8); Protein, Total 6.4 g/dL (6.0-8.5)
== END ==
PROVIDERS: Visit Provider Internal Medicine Medical Oncology
DX: C90.00 Multiple myeloma not having achieved remission (principal)
CPT/HCPCS: 36415; 80053; 82784; 83883; 84155; 84165; 85025; 86334

== ENCOUNTER → 2020-06-26 15:53 | Outpatient (POV) | payer MEDICARE, OTHER, SELFPAY | PROVIDERS: Visit Provider Internal Medicine | DX: Z00.00 Encounter for general adult medical examination without abnormal findings (principal) ==

== ENCOUNTER → 2020-07-01 10:26 | Outpatient (CLI) | payer MEDICARE, OTHER, SELFPAY ==
[2020-07-01 11:04] LABS: Basophils # 0.1 K/mm3 (0-0.2); Basophils % 0.9 % (0.1-2.0); Eosinophils # 0.2 K/mm3 (0.0-0.4); Eosinophils % 4.6 % (0.1-12.0); Hematocrit 41.5 % (42.0-52.0); Hemoglobin 13.7 g/dL (14.1-18.0); Lymphocytes # 1.7 K/mm3 (0.7-4.5); Mean Corpuscular Hemoglobin 31.5 pg (27.0-31.2); Mean Corpuscular Volume 95.4 fl (80-94); Mean Platelet Volume 7.5 fl (7.4-10.4); Monocytes # 0.3 K/mm3 (0.1-1.0); Monocytes % 5.9 % (1.7-9.3); Neutrophils # 2.6 K/mm3 (1.8-7.8); Neutrophils % 53.6 % (37.0-80.0); Platelet Count 292 K/mm3 (142-424); Red Blood Count 4.36 M/mm3 (4.60-6.20); Red Cell Distribution Width 13.7 % (11.5-17.5); White Blood Count 4.8 K/mm3 (4.8-10.8)
[2020-07-01 11:22] LABS: Chloride 104 mmol/L (98-107); Potassium 4.2 mmoL/L (3.5-5.1); Sodium 140 mmol/L (136-145)
[2020-07-01 11:24] LABS: Alanine Aminotransferase 12 U/L (12-78); Aspartate Amino Transferase 25 U/L (17-59); Blood Urea Nitrogen 13 mg/dl (9-20); Estimated Glomerular Filt Rate 73 ml/min (>60); GFR (African American) 88 ML/MIN (>60)
[2020-07-01 11:25] LABS: Albumin Level 4.5 g/dl (3.5-5.0); Albumin/Globulin Ratio 1.7 (1.1-1.8); Alkaline Phosphatase 112 U/L (38-126); Anion Gap 9.2 mEq/L (5-15); Bilirubin,Total 0.9 mg/dl (0.2-1.3); Carbon Dioxide 31 mmol/L (22.0-30.0); Globulin 2.7 g/dL (1.3-3.2); Glucose 96 mg/dl (74-100); Total Protein,Serum 7.2 g/dl (6.3-8.2)
[2020-07-02 16:12] LABS: Albumin 3.8 g/dL (2.9-4.4); Alpha-1-Globulin 0.2 g/dL (0.0-0.4); Alpha-2-Globulin 0.8 g/dL (0.4-1.0); Gamma Globulin 0.7 g/dL (0.4-1.8); Immunoglobulin A, Qn 384 mg/dL (61-437); Immunoglobulin G, Qn 570 mg/dL (603-1613); Protein, Total 6.6 g/dL (6.0-8.5)
[2020-07-02 18:49] LABS: Immunoglobulin M, Qn 43 mg/dL (15-143)
[2020-07-04 11:49] LABS: Free Kappa Lt Chains 17.5; Free Lambda Lt Chains 62.9
== END ==
PROVIDERS: Visit Provider Internal Medicine Medical Oncology
DX: C90.01 Multiple myeloma in remission (principal)
CPT/HCPCS: 36415; 80053; 82784; 83883; 84155; 84165; 85025; 86334

== ENCOUNTER → 2020-09-06 10:14 | Outpatient (CLI) | payer MEDICARE, OTHER, SELFPAY ==
[2020-09-06 10:54] LABS: Basophils # 0.1 K/mm3 (0-0.2); Basophils % 1.2 % (0.1-2.0); Eosinophils # 0.2 K/mm3 (0.0-0.4); Eosinophils % 4.1 % (0.1-12.0); Hematocrit 40.2 % (42.0-52.0); Hemoglobin 13.5 g/dL (14.1-18.0); Lymphocytes # 1.5 K/mm3 (0.7-4.5); Mean Corpuscular HGB Conc 33.6 g/dL (31.8-35.4); Mean Corpuscular Hemoglobin 31.5 pg (27.0-31.2); Mean Corpuscular Volume 93.9 fl (80-94); Mean Platelet Volume 7.8 fl (7.4-10.4); Monocytes # 0.3 K/mm3 (0.1-1.0); Monocytes % 5.8 % (1.7-9.3); Neutrophils # 3.7 K/mm3 (1.8-7.8); Neutrophils % 62.9 % (37.0-80.0); Platelet Count 281 K/mm3 (142-424); Red Blood Count 4.28 M/mm3 (4.60-6.20); Red Cell Distribution Width 13.8 % (11.5-17.5); White Blood Count 5.8 K/mm3 (4.8-10.8)
[2020-09-06 12:06] LABS: Chloride 103 mmol/L (98-107)
[2020-09-06 12:07] LABS: Potassium 4.5 mmoL/L (3.5-5.1); Sodium 139 mmol/L (136-145)
[2020-09-06 12:09] LABS: Alanine Aminotransferase 15 U/L (12-78); Alkaline Phosphatase 158 U/L (38-126); Anion Gap 11.5 mEq/L (5-15); Aspartate Amino Transferase 30 U/L (17-59); Bilirubin,Total 0.9 mg/dl (0.2-1.3); Blood Urea Nitrogen 13 mg/dl (9-20); Carbon Dioxide 29 mmol/L (22.0-30.0); Estimated Glomerular Filt Rate 82 ml/min (>60); GFR (African American) 100 ML/MIN (>60)
[2020-09-06 12:10] LABS: Albumin Level 4.6 g/dl (3.5-5.0); Calcium 9.5 mg/dl (8.4-10.2); Globulin 2.3 g/dL (1.3-3.2); Glucose 93 mg/dl (74-100); Total Protein,Serum 6.9 g/dl (6.3-8.2)
[2020-09-09 14:19] LABS: Immunoglobulin A, Qn 428 mg/dL (61-437); Immunoglobulin G, Qn 560 mg/dL (603-1613)
[2020-09-09 16:15] LABS: Albumin 3.9 g/dL (2.9-4.4); Alpha-1-Globulin 0.2 g/dL (0.0-0.4); Alpha-2-Globulin 0.8 g/dL (0.4-1.0); Gamma Globulin 0.7 g/dL (0.4-1.8); Protein, Total 6.7 g/dL (6.0-8.5)
[2020-09-10 04:13] LABS: Immunoglobulin M, Qn 55 mg/dL (15-143)
[2020-10-06 10:29] LABS: Free Kappa Lt Chains 17.8; Free Lambda Lt Chains 58.1
== END ==
PROVIDERS: Visit Provider Internal Medicine Medical Oncology
DX: C90.00 Multiple myeloma not having achieved remission (principal)
CPT/HCPCS: 36415; 80053; 82784; 83883; 84155; 84165; 85025; 86334

== ENCOUNTER → 2020-11-11 10:19 | Outpatient (CLI) | payer MEDICARE, OTHER, SELFPAY ==
[2020-11-11 10:52] LABS: Basophils # 0.1 K/mm3 (0-0.2); Basophils % 1.2 % (0.1-2.0); Eosinophils # 0.4 K/mm3 (0.0-0.4); Eosinophils % 7.5 % (0.1-12.0); Hematocrit 39.8 % (42.0-52.0); Hemoglobin 13.2 g/dL (14.1-18.0); Lymphocytes # 1.5 K/mm3 (0.7-4.5); Lymphocytes % 31.5 % (10-50); Mean Corpuscular HGB Conc 33.3 g/dL (31.8-35.4); Mean Corpuscular Hemoglobin 31.9 pg (27.0-31.2); Mean Corpuscular Volume 95.8 fl (80-94); Mean Platelet Volume 6.7 fl (7.4-10.4); Monocytes # 0.3 K/mm3 (0.1-1.0); Monocytes % 6.4 % (1.7-9.3); Neutrophils # 2.5 K/mm3 (1.8-7.8); Neutrophils % 53.3 % (37.0-80.0); Platelet Count 249 K/mm3 (142-424); Red Blood Count 4.16 M/mm3 (4.60-6.20); Red Cell Distribution Width 13.3 % (11.5-17.5); White Blood Count 4.7 K/mm3 (4.8-10.8)
[2020-11-11 11:55] LABS: Alanine Aminotransferase 16 U/L (12-78); Albumin Level 4.3 g/dl (3.5-5.0); Albumin/Globulin Ratio 1.7 (1.1-1.8); Alkaline Phosphatase 110 U/L (38-126); Anion Gap 11.4 mEq/L (5-15); Aspartate Amino Transferase 29 U/L (17-59); Bilirubin,Total 0.7 mg/dl (0.2-1.3); Blood Urea Nitrogen 14 mg/dl (9-20); Calcium 9.3 mg/dl (8.4-10.2); Carbon Dioxide 29 mmol/L (22.0-30.0); Chloride 104 mmol/L (98-107); Estimated Glomerular Filt Rate 82 ml/min (>60); GFR (African American) 99 ML/MIN (>60); Globulin 2.5 g/dL (1.3-3.2); Glucose 81 mg/dl (74-100); Potassium 4.4 mmoL/L (3.5-5.1); Sodium 140 mmol/L (136-145); Total Protein,Serum 6.8 g/dl (6.3-8.2)
[2020-11-13 15:33] LABS: Albumin 3.9 g/dL (2.9-4.4); Alpha-1-Globulin 0.2 g/dL (0.0-0.4); Alpha-2-Globulin 0.8 g/dL (0.4-1.0); Gamma Globulin 0.6 g/dL (0.4-1.8); Immunoglobulin A, Qn 463 mg/dL (61-437); Immunoglobulin G, Qn 589 mg/dL (603-1613); Immunoglobulin M, Qn 54 mg/dL (15-143); Protein, Total 6.7 g/dL (6.0-8.5)
[2020-11-17 14:08] LABS: Free Kappa Lt Chains 19.9; Free Lambda Lt Chains 94.6
== END ==
PROVIDERS: Visit Provider Internal Medicine Medical Oncology
DX: C90.00 Multiple myeloma not having achieved remission (principal)
CPT/HCPCS: 36415; 80053; 82784; 83883; 84155; 84165; 85025; 86334

== ENCOUNTER → 2021-01-27 10:38 | Outpatient (CLI) | payer MEDICARE, OTHER, SELFPAY ==
[2021-01-27 11:19] LABS: Basophils # 0.1 K/mm3 (0-0.2); Basophils % 1.4 % (0.1-2.0); Eosinophils # 0.3 K/mm3 (0.0-0.4); Eosinophils % 4.6 % (0.1-12.0); Hematocrit 42.7 % (42.0-52.0); Hemoglobin 14.1 g/dL (14.1-18.0); Lymphocytes # 1.8 K/mm3 (0.7-4.5); Lymphocytes % 33.1 % (10-50); Mean Corpuscular HGB Conc 32.9 g/dL (31.8-35.4); Mean Corpuscular Hemoglobin 32.2 pg (27.0-31.2); Mean Corpuscular Volume 97.8 fl (80-94); Mean Platelet Volume 7.5 fl (7.4-10.4); Monocytes # 0.3 K/mm3 (0.1-1.0); Monocytes % 5.4 % (1.7-9.3); Neutrophils % 55.5 % (37.0-80.0); Platelet Count 352 K/mm3 (142-424); Red Blood Count 4.36 M/mm3 (4.60-6.20); Red Cell Distribution Width 13.7 % (11.5-17.5); White Blood Count 5.4 K/mm3 (4.8-10.8)
[2021-01-27 18:24] LABS: Alanine Aminotransferase 17 U/L (12-78); Albumin Level 4.1 g/dl (3.5-5.0); Albumin/Globulin Ratio 1.5 (1.1-1.8); Alkaline Phosphatase 106 U/L (38-126); Anion Gap 11.6 mEq/L (5-15); Aspartate Amino Transferase 31 U/L (17-59); Bilirubin,Total 0.5 mg/dl (0.2-1.3); Blood Urea Nitrogen 12 mg/dl (9-20); Calcium 9.8 mg/dl (8.4-10.2); Carbon Dioxide 31 mmol/L (22.0-30.0); Chloride 102 mmol/L (98-107); Estimated Glomerular Filt Rate 82 ml/min (>60); GFR (African American) 99 ML/MIN (>60); Globulin 2.7 g/dL (1.3-3.2); Glucose 73 mg/dl (74-100); Potassium 4.6 mmoL/L (3.5-5.1); Sodium 140 mmol/L (136-145); Total Protein,Serum 6.8 g/dl (6.3-8.2)
[2021-01-28 14:13] LABS: Immunoglobulin A, Qn 565 mg/dL (61-437); Immunoglobulin G, Qn 600 mg/dL (603-1613); Immunoglobulin M, Qn 60 mg/dL (15-143)
[2021-01-30 12:38] LABS: Albumin 3.9 g/dL (2.9-4.4); Alpha-1-Globulin 0.2 g/dL (0.0-0.4); Alpha-2-Globulin 0.8 g/dL (0.4-1.0); Gamma Globulin 0.8 g/dL (0.4-1.8); Protein, Total 6.8 g/dL (6.0-8.5)
[2021-04-16 03:25] LABS: Free Kappa Lt Chains 20.8
== END ==
PROVIDERS: Visit Provider Internal Medicine Medical Oncology
DX: C90.00 Multiple myeloma not having achieved remission (principal)
CPT/HCPCS: 36415; 80053; 82784; 83540; 83883; 84155; 84165; 85025; 86334

== ENCOUNTER → 2021-03-04 10:16 | Outpatient (CLI) | payer MEDICARE, OTHER, SELFPAY ==
[2021-03-04 10:38] LABS: Basophils # 0.1 K/mm3 (0-0.2); Basophils % 0.7 % (0.1-2.0); Eosinophils # 0.5 K/mm3 (0.0-0.4); Eosinophils % 6.4 % (0.1-12.0); Hematocrit 43.1 % (42.0-52.0); Hemoglobin 14.7 g/dL (14.1-18.0); Lymphocytes % 11.7 % (10-50); Mean Platelet Volume 7.7 fl (7.4-10.4); Monocytes # 0.4 K/mm3 (0.1-1.0); Monocytes % 4.6 % (1.7-9.3); Neutrophils # 6.3 K/mm3 (1.8-7.8); Neutrophils % 76.7 % (37.0-80.0); Platelet Count 450 K/mm3 (142-424); Red Blood Count 4.45 M/mm3 (4.60-6.20); Red Cell Distribution Width 14.4 % (11.5-17.5); White Blood Count 8.3 K/mm3 (4.8-10.8)
[2021-03-04 11:21] LABS: Alanine Aminotransferase 17 U/L (12-78); Albumin Level 4.3 g/dl (3.5-5.0); Albumin/Globulin Ratio 1.7 (1.1-1.8); Alkaline Phosphatase 133 U/L (38-126); Anion Gap 11.2 mEq/L (5-15); Aspartate Amino Transferase 21 U/L (17-59); Bilirubin,Total 1.1 mg/dl (0.2-1.3); Blood Urea Nitrogen 15 mg/dl (9-20); Calcium 9.4 mg/dl (8.4-10.2); Carbon Dioxide 32 mmol/L (22.0-30.0); Chloride 99 mmol/L (98-107); Estimated Glomerular Filt Rate 82 ml/min (>60); GFR (African American) 99 ML/MIN (>60); Globulin 2.6 g/dL (1.3-3.2); Glucose 98 mg/dl (74-100); Potassium 4.2 mmoL/L (3.5-5.1); Sodium 138 mmol/L (136-145); Total Protein,Serum 6.9 g/dl (6.3-8.2)
[2021-03-05 16:12] LABS: Immunoglobulin A, Qn 597 mg/dL (61-437); Immunoglobulin G, Qn 529 mg/dL (603-1613); Immunoglobulin M, Qn 58 mg/dL (15-143)
[2021-06-12 21:42] LABS: Albumin 3.6; Protein, Total 6.7
[2021-06-12 21:43] LABS: Alpha-1-Globulin 0.2; Alpha-2-Globulin 0.9; Gamma Globulin 0.7
[2021-06-12 21:45] LABS: Free Kappa Lt Chains 19.4; Free Lambda Lt Chains 67.4
== END ==
PROVIDERS: Visit Provider Internal Medicine Medical Oncology
DX: C90.00 Multiple myeloma not having achieved remission (principal)
CPT/HCPCS: 36415; 80053; 82784; 83883; 84155; 84165; 85025; 86334

== ENCOUNTER → 2021-04-07 13:52 | Outpatient (CLI) | payer MEDICARE, OTHER, SELFPAY ==
[2021-04-07 15:25] LABS: Alanine Aminotransferase 19 U/L (12-78); Albumin Level 4.2 g/dl (3.5-5.0); Albumin/Globulin Ratio 1.7 (1.1-1.8); Alkaline Phosphatase 93 U/L (38-126); Anion Gap 10.8 mEq/L (5-15); Aspartate Amino Transferase 23 U/L (17-59); Bilirubin,Total 0.8 mg/dl (0.2-1.3); Blood Urea Nitrogen 22 mg/dl (9-20); Calcium 9.4 mg/dl (8.4-10.2); Carbon Dioxide 28 mmol/L (22.0-30.0); Chloride 103 mmol/L (98-107); Estimated Glomerular Filt Rate 73 ml/min (>60); GFR (African American) 88 ML/MIN (>60); Globulin 2.5 g/dL (1.3-3.2); Glucose 144 mg/dl (74-100); Potassium 3.8 mmoL/L (3.5-5.1); Sodium 138 mmol/L (136-145); Total Protein,Serum 6.7 g/dl (6.3-8.2)
[2021-04-07 15:36] LABS: Basophils % 0.4 % (0.1-2.0); Eosinophils # 0.4 K/mm3 (0.0-0.4); Eosinophils % 5.1 % (0.1-12.0); Hematocrit 40.2 % (42.0-52.0); Hemoglobin 13.5 g/dL (14.1-18.0); Lymphocytes % 12.7 % (10-50); Mean Corpuscular HGB Conc 33.5 g/dL (31.8-35.4); Mean Corpuscular Hemoglobin 32.9 pg (27.0-31.2); Mean Corpuscular Volume 98.4 fl (80-94); Mean Platelet Volume 6.7 fl (7.4-10.4); Monocytes # 0.3 K/mm3 (0.1-1.0); Monocytes % 3.7 % (1.7-9.3); Neutrophils # 6.5 K/mm3 (1.8-7.8); Neutrophils % 78.1 % (37.0-80.0); Platelet Count 325 K/mm3 (142-424); Red Blood Count 4.09 M/mm3 (4.60-6.20); Red Cell Distribution Width 14.5 % (11.5-17.5); White Blood Count 8.3 K/mm3 (4.8-10.8)
[2021-04-09 14:19] LABS: Albumin 3.5 g/dL (2.9-4.4); Alpha-1-Globulin 0.2 g/dL (0.0-0.4); Alpha-2-Globulin 0.8 g/dL (0.4-1.0); Gamma Globulin 0.6 g/dL (0.4-1.8); Immunoglobulin A, Qn 624 mg/dL (61-437); Immunoglobulin G, Qn 432 mg/dL (603-1613); Immunoglobulin M, Qn 42 mg/dL (15-143); Protein, Total 6.2 g/dL (6.0-8.5)
[2021-06-06 10:35] LABS: Free Kappa Lt Chains 11.4; Free Lambda Lt Chains 64.3
== END ==
PROVIDERS: Visit Provider Internal Medicine Medical Oncology
DX: C90.00 Multiple myeloma not having achieved remission (principal)
CPT/HCPCS: 36415; 80053; 82784; 83883; 84155; 84165; 85025; 86334

== ENCOUNTER → 2021-05-07 10:37 | Outpatient (CLI) | payer MEDICARE, OTHER, SELFPAY ==
[2021-05-07 11:16] LABS: Basophils # 0.1 K/mm3 (0-0.2); Basophils % 0.9 % (0.1-2.0); Eosinophils # 0.5 K/mm3 (0.0-0.4); Eosinophils % 8.4 % (0.1-12.0); Hematocrit 37.8 % (42.0-52.0); Hemoglobin 12.3 g/dL (14.1-18.0); Lymphocytes # 1.3 K/mm3 (0.7-4.5); Lymphocytes % 23.7 % (10-50); Mean Corpuscular HGB Conc 32.6 g/dL (31.8-35.4); Mean Corpuscular Hemoglobin 33.2 pg (27.0-31.2); Mean Corpuscular Volume 101.8 fl (80-94); Mean Platelet Volume 7.6 fl (7.4-10.4); Monocytes # 0.4 K/mm3 (0.1-1.0); Monocytes % 6.6 % (1.7-9.3); Neutrophils # 3.3 K/mm3 (1.8-7.8); Neutrophils % 60.3 % (37.0-80.0); Platelet Count 420 K/mm3 (142-424); Red Blood Count 3.71 M/mm3 (4.60-6.20); Red Cell Distribution Width 15.4 % (11.5-17.5); White Blood Count 5.5 K/mm3 (4.8-10.8)
[2021-05-07 12:25] LABS: Alanine Aminotransferase 17 U/L (12-78); Albumin Level 3.6 g/dl (3.5-5.0); Albumin/Globulin Ratio 1.4 (1.1-1.8); Alkaline Phosphatase 114 U/L (38-126); Aspartate Amino Transferase 23 U/L (17-59); Blood Urea Nitrogen 16 mg/dl (9-20); Calcium 8.9 mg/dl (8.4-10.2); Carbon Dioxide 30 mmol/L (22.0-30.0); Chloride 100 mmol/L (98-107); Estimated Glomerular Filt Rate 94 ml/min (>60); GFR (African American) 114 ML/MIN (>60); Globulin 2.5 g/dL (1.3-3.2); Glucose 97 mg/dl (74-100); Sodium 136 mmol/L (136-145); Total Protein,Serum 6.1 g/dl (6.3-8.2)
[2021-05-08 10:18] LABS: Immunoglobulin A, Qn 599 mg/dL (61-437); Immunoglobulin G, Qn 405 mg/dL (603-1613); Immunoglobulin M, Qn 35 mg/dL (15-143)
== END ==
PROVIDERS: PCP Internal Medicine; Visit Provider Internal Medicine Hematology & Oncology
DX: C90.00 Multiple myeloma not having achieved remission (principal)
CPT/HCPCS: 36415; 80053; 82784; 85025

== ENCOUNTER → 2021-08-08 11:04 | Outpatient (CLI) | payer MEDICARE, OTHER, SELFPAY ==
[2021-08-08 12:24] LABS: Alanine Aminotransferase 18 U/L (12-78); Albumin Level 3.7 g/dl (3.5-5.0); Albumin/Globulin Ratio 1.7 (1.1-1.8); Alkaline Phosphatase 118 U/L (38-126); Anion Gap 7.2 mEq/L (5-15); Aspartate Amino Transferase 24 U/L (17-59); Bilirubin,Total 0.8 mg/dl (0.2-1.3); Blood Urea Nitrogen 12 mg/dl (9-20); Calcium 8.7 mg/dl (8.4-10.2); Carbon Dioxide 31 mmol/L (22.0-30.0); Chloride 102 mmol/L (98-107); Estimated Glomerular Filt Rate 82 ml/min (>60); GFR (African American) 99 ML/MIN (>60); Globulin 2.2 g/dL (1.3-3.2); Glucose 109 mg/dl (74-100); Potassium 4.2 mmoL/L (3.5-5.1); Sodium 136 mmol/L (136-145); Total Protein,Serum 5.9 g/dl (6.3-8.2)
[2021-08-08 12:27] LABS: Basophils % 0.5 % (0.1-2.0); Eosinophils # 0.1 K/mm3 (0.0-0.4); Eosinophils % 0.7 % (0.1-12.0); Hematocrit 38.7 % (42.0-52.0); Hemoglobin 12.6 g/dL (14.1-18.0); Lymphocytes # 0.4 K/mm3 (0.7-4.5); Lymphocytes % 4.6 % (10-50); Mean Corpuscular HGB Conc 32.5 g/dL (31.8-35.4); Mean Corpuscular Hemoglobin 33.8 pg (27.0-31.2); Mean Corpuscular Volume 104.1 fl (80-94); Mean Platelet Volume 7.9 fl (7.4-10.4); Monocytes # 0.1 K/mm3 (0.1-1.0); Monocytes % 1.5 % (1.7-9.3); Neutrophils # 7.4 K/mm3 (1.8-7.8); Neutrophils % 92.7 % (37.0-80.0); Platelet Count 321 K/mm3 (142-424); Red Blood Count 3.72 M/mm3 (4.60-6.20); Red Cell Distribution Width 15.9 % (11.5-17.5)
[2021-08-08 12:33] LABS: MANUAL DIFFERENTIAL MANUAL DIFFERENTIAL (MANUAL DIFF)
[2021-08-08 17:10] LABS: Anisocytosis 1+; Hypochromasia 1+; Lymphocytes % 9 % (10-50); Monocytes % 8 % (2-9); Neutrophils % 83 % (42-76); Platelet Estimate Normal; Total Cells Counted 100
[2021-08-11 14:10] LABS: Albumin 3.6 g/dL (2.9-4.4); Alpha-1-Globulin 0.2 g/dL (0.0-0.4); Alpha-2-Globulin 0.8 g/dL (0.4-1.0); Gamma Globulin 0.3 g/dL (0.4-1.8); Immunoglobulin A, Qn 552 mg/dL (61-437); Immunoglobulin G, Qn 350 mg/dL (603-1613); Immunoglobulin M, Qn 23 mg/dL (15-143); Protein, Total 6.3 g/dL (6.0-8.5)
[2021-08-18 08:43] LABS: Free Kappa Lt Chains 13.6
[2021-08-18 08:44] LABS: Free Lambda Lt Chains 62.3
== END ==
PROVIDERS: Visit Provider Internal Medicine Medical Oncology
DX: C90.00 Multiple myeloma not having achieved remission (principal)
CPT/HCPCS: 36415; 80053; 82784; 83883; 84155; 84165; 85007; 85025; 86334

== ENCOUNTER → 2021-11-10 12:05 | Outpatient (CLI) | payer MEDICARE, OTHER, SELFPAY ==
[2021-11-10 13:03] LABS: Basophils % 0.1 % (0.1-2.0); Eosinophils # 0.1 K/mm3 (0.0-0.4); Eosinophils % 2.2 % (0.1-12.0); Hematocrit 33.8 % (42.0-52.0); Hemoglobin 11.3 g/dL (14.1-18.0); Lymphocytes # 0.8 K/mm3 (0.7-4.5); Lymphocytes % 19.6 % (10-50); Mean Corpuscular HGB Conc 33.3 g/dL (31.8-35.4); Mean Corpuscular Hemoglobin 33.9 pg (27.0-31.2); Mean Corpuscular Volume 101.7 fl (80-94); Mean Platelet Volume 7.2 fl (7.4-10.4); Monocytes # 0.5 K/mm3 (0.1-1.0); Monocytes % 10.7 % (1.7-9.3); Neutrophils # 2.9 K/mm3 (1.8-7.8); Neutrophils % 67.3 % (37.0-80.0); Platelet Count 317 K/mm3 (142-424); Red Blood Count 3.33 M/mm3 (4.60-6.20); Red Cell Distribution Width 15.9 % (11.5-17.5); White Blood Count 4.3 K/mm3 (4.8-10.8)
[2021-11-10 13:28] LABS: Alanine Aminotransferase 26 U/L (12-78); Albumin Level 3.6 g/dl (3.5-5.0); Albumin/Globulin Ratio 1.6 (1.1-1.8); Alkaline Phosphatase 98 U/L (38-126); Anion Gap 8.9 mEq/L (5-15); Aspartate Amino Transferase 29 U/L (17-59); Bilirubin,Total 0.9 mg/dl (0.2-1.3); Blood Urea Nitrogen 23 mg/dl (9-20); Calcium 8.9 mg/dl (8.4-10.2); Carbon Dioxide 28 mmol/L (22.0-30.0); Chloride 106 mmol/L (98-107); Estimated Glomerular Filt Rate 65 ml/min (>60); GFR (African American) 79 ML/MIN (>60); Globulin 2.2 g/dL (1.3-3.2); Glucose 102 mg/dl (74-100); Potassium 3.9 mmoL/L (3.5-5.1); Sodium 139 mmol/L (136-145); Total Protein,Serum 5.8 g/dl (6.3-8.2)
[2021-11-11 16:53] LABS: Albumin 3.4 g/dL (2.9-4.4); Alpha-1-Globulin 0.2 g/dL (0.0-0.4); Alpha-2-Globulin 0.7 g/dL (0.4-1.0); Gamma Globulin 0.4 g/dL (0.4-1.8); Immunoglobulin A, Qn 423 mg/dL (61-437); Immunoglobulin G, Qn 328 mg/dL (603-1613); Immunoglobulin M, Qn 34 mg/dL (15-143); Protein, Total 5.7 g/dL (6.0-8.5)
[2021-11-13 22:14] LABS: Free Kappa Lt Chains 16.2; Free Lambda Lt Chains 53.8
== END ==
PROVIDERS: PCP Internal Medicine; Visit Provider Internal Medicine Medical Oncology
DX: C90.00 Multiple myeloma not having achieved remission (principal)
CPT/HCPCS: 36415; 80053; 82784; 83883; 84155; 84165; 85025; 86334

== ENCOUNTER → 2021-12-23 11:27 | Outpatient (CLI) | payer MEDICARE, OTHER, SELFPAY ==
[2021-12-23 12:13] LABS: Basophils % 0.5 % (0.1-2.0); Eosinophils # 0.3 K/mm3 (0.0-0.4); Eosinophils % 5.4 % (0.1-12.0); Hematocrit 35.2 % (42.0-52.0); Hemoglobin 11.2 g/dL (14.1-18.0); Lymphocytes # 0.9 K/mm3 (0.7-4.5); Lymphocytes % 19.4 % (10-50); Mean Corpuscular HGB Conc 31.7 g/dL (31.8-35.4); Mean Corpuscular Hemoglobin 33.6 pg (27.0-31.2); Mean Corpuscular Volume 105.8 fl (80-94); Monocytes # 0.4 K/mm3 (0.1-1.0); Monocytes % 8.4 % (1.7-9.3); Neutrophils # 3.1 K/mm3 (1.8-7.8); Neutrophils % 66.3 % (37.0-80.0); Platelet Count 280 K/mm3 (142-424); Red Blood Count 3.33 M/mm3 (4.60-6.20); Red Cell Distribution Width 15.9 % (11.5-17.5); White Blood Count 4.7 K/mm3 (4.8-10.8)
[2021-12-23 13:07] LABS: Alanine Aminotransferase 20 U/L (12-78); Albumin Level 3.2 g/dl (3.5-5.0); Albumin/Globulin Ratio 1.5 (1.1-1.8); Alkaline Phosphatase 95 U/L (38-126); Anion Gap 6.9 mEq/L (5-15); Aspartate Amino Transferase 21 U/L (17-59); Bilirubin,Total 1.3 mg/dl (0.2-1.3); Blood Urea Nitrogen 12 mg/dl (9-20); Calcium 8.4 mg/dl (8.4-10.2); Carbon Dioxide 30 mmol/L (22.0-30.0); Chloride 104 mmol/L (98-107); Estimated Glomerular Filt Rate 94 ml/min (>60); GFR (African American) 113 ML/MIN (>60); Globulin 2.1 g/dL (1.3-3.2); Glucose 103 mg/dl (74-100); Potassium 3.9 mmoL/L (3.5-5.1); Sodium 137 mmol/L (136-145); Total Protein,Serum 5.3 g/dl (6.3-8.2)
[2021-12-24 16:12] LABS: Immunoglobulin A, Qn 399 mg/dL (61-437); Immunoglobulin G, Qn 305 mg/dL (603-1613); Immunoglobulin M, Qn 27 mg/dL (15-143)
[2022-01-04 21:21] LABS: Free Kappa Lt Chains 13.2
[2022-01-04 21:22] LABS: Albumin 3.3; Alpha-1-Globulin 0.2; Alpha-2-Globulin 0.7; Gamma Globulin 0.4; Protein, Total 5.4
== END ==
PROVIDERS: PCP Internal Medicine; Visit Provider Internal Medicine Medical Oncology
DX: C90.02 Multiple myeloma in relapse (principal)
CPT/HCPCS: 36415; 80053; 82784; 83883; 84155; 84165; 85025; 86334

== ENCOUNTER → 2022-01-28 13:27 | Outpatient (CLI) | payer MEDICARE, OTHER, SELFPAY ==
[2022-01-28 18:32] LABS: Anion Gap 14.9 mEq/L (5-15); Blood Urea Nitrogen 14 mg/dl (9-20); Calcium 8.1 mg/dl (8.4-10.2); Carbon Dioxide 28 mmol/L (22.0-30.0); Chloride 98 mmol/L (98-107); Estimated Glomerular Filt Rate 94 ml/min (>60); GFR (African American) 113 ML/MIN (>60); Glucose 81 mg/dl (74-100); Potassium 3.9 mmoL/L (3.5-5.1); Sodium 137 mmol/L (136-145)
== END ==
PROVIDERS: PCP Internal Medicine; Visit Provider Internal Medicine
DX: I10 Essential (primary) hypertension (principal)
CPT/HCPCS: 80048

== ENCOUNTER → 2022-02-11 12:53 | Outpatient (CLI) | payer MEDICARE, OTHER, SELFPAY ==
[2022-02-11 16:49] LABS: Basophils % 0.3 % (0.1-2.0); Eosinophils # 0.1 K/mm3 (0.0-0.4); Eosinophils % 1.1 % (0.1-12.0); Hematocrit 37.4 % (42.0-52.0); Hemoglobin 12.1 g/dL (14.1-18.0); Lymphocytes # 1.5 K/mm3 (0.7-4.5); Lymphocytes % 19.7 % (10-50); Mean Corpuscular HGB Conc 32.3 g/dL (31.8-35.4); Mean Corpuscular Hemoglobin 34.2 pg (27.0-31.2); Mean Corpuscular Volume 105.7 fl (80-94); Mean Platelet Volume 8.2 fl (7.4-10.4); Monocytes # 0.8 K/mm3 (0.1-1.0); Monocytes % 9.7 % (1.7-9.3); Neutrophils # 5.4 K/mm3 (1.8-7.8); Neutrophils % 69.2 % (37.0-80.0); Platelet Count 556 K/mm3 (142-424); Red Blood Count 3.54 M/mm3 (4.60-6.20); Red Cell Distribution Width 17.5 % (11.5-17.5); White Blood Count 7.7 K/mm3 (4.8-10.8)
[2022-02-11 18:36] LABS: Blood Urea Nitrogen 42 mg/dl (9-20); Calcium 8.8 mg/dl (8.4-10.2); Carbon Dioxide 33 mmol/L (22.0-30.0); Chloride 91 mmol/L (98-107); Estimated Glomerular Filt Rate 39 ml/min (>60); GFR (African American) 48 ML/MIN (>60); Glucose 87 mg/dl (74-100); Sodium 139 mmol/L (136-145)
== END ==
PROVIDERS: PCP Internal Medicine; Visit Provider Internal Medicine
DX: R60.9 Edema, unspecified (principal); I10 Essential (primary) hypertension; E53.8 Deficiency of other specified B group vitamins; J43.9 Emphysema, unspecified
CPT/HCPCS: 80048; 85025

== ENCOUNTER → 2022-02-18 12:54 | Outpatient (CLI) | payer MEDICARE, OTHER, SELFPAY ==
[2022-02-18 14:11] LABS: Basophils % 0.6 % (0.1-2.0); Eosinophils # 0.3 K/mm3 (0.0-0.4); Eosinophils % 6.9 % (0.1-12.0); Hemoglobin 10.4 g/dL (14.1-18.0); Lymphocytes # 1.1 K/mm3 (0.7-4.5); Lymphocytes % 23.6 % (10-50); Mean Corpuscular HGB Conc 31.7 g/dL (31.8-35.4); Mean Corpuscular Hemoglobin 33.7 pg (27.0-31.2); Mean Corpuscular Volume 106.5 fl (80-94); Mean Platelet Volume 8.8 fl (7.4-10.4); Monocytes # 0.3 K/mm3 (0.1-1.0); Monocytes % 7.3 % (1.7-9.3); Neutrophils # 2.8 K/mm3 (1.8-7.8); Neutrophils % 61.6 % (37.0-80.0); Platelet Count 319 K/mm3 (142-424); Red Blood Count 3.09 M/mm3 (4.60-6.20); Red Cell Distribution Width 16.9 % (11.5-17.5); White Blood Count 4.6 K/mm3 (4.8-10.8)
[2022-02-18 14:55] LABS: Anion Gap 14.7 mEq/L (5-15); Blood Urea Nitrogen 16 mg/dl (9-20); Calcium 8.6 mg/dl (8.4-10.2); Carbon Dioxide 29 mmol/L (22.0-30.0); Chloride 99 mmol/L (98-107); Estimated Glomerular Filt Rate 82 ml/min (>60); GFR (African American) 99 ML/MIN (>60); Glucose 62 mg/dl (74-100); Potassium 4.7 mmoL/L (3.5-5.1); Sodium 138 mmol/L (136-145)
== END ==
PROVIDERS: PCP Internal Medicine; Visit Provider Internal Medicine
DX: C90.00 Multiple myeloma not having achieved remission (principal); E86.0 Dehydration; I95.2 Hypotension due to drugs; N17.9 Acute kidney failure, unspecified
CPT/HCPCS: 80048; 85025

== ENCOUNTER → 2022-04-20 10:39 | Outpatient (CLI) | payer MEDICARE, OTHER, SELFPAY ==
[2022-04-20 11:39] LABS: Basophils % 0.2 % (0.1-2.0); Eosinophils # 0.3 K/mm3 (0.0-0.4); Eosinophils % 4.7 % (0.1-12.0); Hematocrit 37.3 % (42.0-52.0); Hemoglobin 11.9 g/dL (14.1-18.0); Mean Corpuscular HGB Conc 31.9 g/dL (31.8-35.4); Mean Corpuscular Hemoglobin 33.8 pg (27.0-31.2); Mean Corpuscular Volume 105.8 fl (80-94); Mean Platelet Volume 8.2 fl (7.4-10.4); Monocytes # 0.4 K/mm3 (0.1-1.0); Neutrophils # 5.2 K/mm3 (1.8-7.8); Neutrophils % 75.2 % (37.0-80.0); Platelet Count 330 K/mm3 (142-424); Red Blood Count 3.53 M/mm3 (4.60-6.20); Red Cell Distribution Width 15.8 % (11.5-17.5); White Blood Count 6.9 K/mm3 (4.8-10.8)
[2022-04-20 13:17] LABS: Alanine Aminotransferase 15 U/L (12-78); Albumin/Globulin Ratio 1.7 (1.1-1.8); Alkaline Phosphatase 117 U/L (38-126); Aspartate Amino Transferase 21 U/L (17-59); Bilirubin,Total 1.2 mg/dl (0.2-1.3); Blood Urea Nitrogen 28 mg/dl (9-20); Calcium 8.5 mg/dl (8.4-10.2); Carbon Dioxide 26 mmol/L (22.0-30.0); Chloride 102 mmol/L (98-107); Estimated Glomerular Filt Rate 59 ml/min (>60); GFR (African American) 71 ML/MIN (>60); Globulin 2.3 g/dL (1.3-3.2); Glucose 87 mg/dl (74-100); Sodium 137 mmol/L (136-145); Total Protein,Serum 6.3 g/dl (6.3-8.2)
[2022-04-21 16:12] LABS: Albumin 3.5 g/dL (2.9-4.4); Alpha-1-Globulin 0.2 g/dL (0.0-0.4); Alpha-2-Globulin 0.8 g/dL (0.4-1.0); Gamma Globulin 0.5 g/dL (0.4-1.8); Protein, Total 5.9 g/dL (6.0-8.5)
[2022-04-22 13:33] LABS: Immunoglobulin A, Qn 455 mg/dL (61-437); Immunoglobulin G, Qn 352 mg/dL (603-1613); Immunoglobulin M, Qn 38 mg/dL (15-143)
[2022-04-29 22:57] LABS: Free Kappa Lt Chains 16.5; Free Lambda Lt Chains 52.8
== END ==
PROVIDERS: PCP Internal Medicine; Visit Provider Internal Medicine Medical Oncology
DX: C90.00 Multiple myeloma not having achieved remission (principal)
CPT/HCPCS: 36415; 80053; 82784; 83883; 84155; 84165; 85025; 86334

== ENCOUNTER 2022-04-24 11:11 | Emergency (ER) | payer MEDICARE, OTHER, SELFPAY ==
[2022-04-24] VITALS (7 sets, daily range): BP systolic 107–138; BP diastolic 48–82; PULSE 39–93; RESP 13–19; TEMP 36.6–36.7; O2SAT 96–100; BMI 13.4
--- NOTE | 2022-04-24 11:33 | HMH.EDGENADL ---
Discharge Plan Disposition Patient Disposition: Home, Self-Care Condition: Good Chief Complaint: Weakness Prescriptions Prescriptions: No Action clonazepam 0.5 mg tablet 0.5 mg PO DAILY Ventolin HFA 90 mcg/actuation HFA aerosol inhaler 1 puff INHALATION Q6H PRN (Reason: .) acetaminophen-codeine [Tylenol-Codeine #3] 300-30 mg tablet 1 tab PO Q6H PRN (Reason: PAIN) amlodipine 10 mg tablet 10 mg PO DAILY Qty: 90 Label Comments: TAKE 1 TABLET BY MOUTH EVERY DAY Revlimid 10 mg capsule 10 mg PO DAILY Rx Instructions: swallow whole with glass of water; do not open, crush, chew , break, or dissolve latanoprost 0.005 % drops OPHTHALMIC Label Comments: instill 1 drop IN THE LEFT EYE EVERY DAY AT BEDTIME cephalexin 500 mg capsule 500 mg PO DAILY dexamethasone 4 mg tablet 2 mg PO DAILY Label Comments: TAKE FIVE TABLETS BY MOUTH ONCE A WEEK --TAKE WITH FOOD-- gabapentin 600 MG tablet 600 mg PO BID PRN (Reason: PAIN) torsemide 20 MG tablet 40 mg PO DAILY potassium chloride 20 MEQ tablet extended release 20 meq PO BID metronidazole 500 MG tablet 500 mg PO TID 7 Days Qty: 21 0RF Referrals Follow up/Referrals: Lyndon Reed MD [Primary Care Provider] - See instructions Activity Restrictions/Add. Instructions Additional Instructions/Restrictions: Drink plenty of fluids. Collect a diarrhea sample using the provided supplies and return it along with the order form to ER registration at [facility] for testing. Obtain the results of this test from your primary care provider the next day. Follow-up with your primary care provider, call for appointment. Clinical Impressions Clinical Impression: Diarrhea, Recent weight loss Instructions Patient Instructions: DI for Diarrhea and Traveler's Diarrhea -- Adult, DI for Weight Loss Discharge ED Provider: Jarrod Barba General Adult HPI General Chief complaint: Weakness Stated complaint: dehydrated Time Seen by Provider: 04/24/22 11:25 Mode of Arrival: Wheelchair Source of Information: Patient Limitations: No Limitations Description of Symptoms (Recalled from ER Triage Doc. by RN): pt to ed from pcp office with hx of multiple myeloma c/o diarrhea and generalized weakness. pt states he has felt bad for months but feel dry now. pt denies any acute pain. History of Present Illness HPI narrative: The patient is sent from Dr. Reed's office. He states he is dehydrated and having diarrhea. States anything he eats goes straight through him. Also complains of diffuse anterior chest pain. He has been having chest pain for quite some time, thinks it might be bone pain. Denies fever. Denies vomiting. He has multiple myeloma. He has lost 22 pounds since December. Related Data Home Medications Medication Instructions Recorded Confirmed acetaminophen 300 mg-codeine 30 mg 1 tab PO Q6H PRN PAIN 03/24/18 04/23/22 tablet (Tylenol-Codeine #3) albuterol sulfate 90 mcg/actuation 1 puff inhalation Q6H PRN . 03/24/18 04/23/22 aerosol inhaler (Ventolin HFA) amlodipine 10 mg tablet 10 mg PO DAILY . #90 tabs 11/10/18 04/23/22 lenalidomide 10 mg capsule 10 mg PO DAILY CANCER 04/21/19 04/23/22 (Revlimid) gabapentin 600 mg tablet 600 mg PO BID PRN PAIN 08/17/19 04/23/22 potassium chloride 20 mEq 20 meq PO BID HYPOKALEMIA 08/17/19 04/23/22 tablet,extended release torsemide 20 mg tablet 40 mg PO DAILY FLUID RETENTION 08/17/19 04/23/22 clonazepam 0.5 mg tablet 0.5 mg PO DAILY 06/06/21 04/23/22 latanoprost 0.005 % eye drops ml ophthalmic (eye) 08/11/21 04/23/22 cephalexin 500 mg capsule 500 mg PO DAILY 11/13/21 04/23/22 dexamethasone 4 mg tablet 2 mg PO DAILY 11/13/21 04/23/22 Previous Rx's Medication Instructions Recorded metronidazole 500 mg tablet 500 mg PO TID 7 days #21 tabs 08/17/19 Allergies Allergy/AdvReac Type Severity Reaction Status Date / Time No Known Allergie
--- NOTE | 2022-04-24 11:36 | CT_ITS ---
FINAL REPORT TECHNIQUE: After the administration of intravenous contrast, axial images were obtained through the abdomen and pelvis by computed tomography. The study was performed with techniques to keep radiation dose as low as reasonably achievable, (ALARA). Individual dose reduction techniques using automated exposure control or adjustment of mA and/or kV according to the patient's size were employed. CLINICAL HISTORY: weight loss and diarrhea COMPARISON: 08/17/2019 FINDINGS: Abdomen: No acute density is seen within the lung bases. Solid abdominal organs are unremarkable. No bowel obstruction is present. There is no free air. No fluid collection is seen. There is no adenopathy. 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 This previously measured 2.7 cm. Pelvis: The appendix is not identified and there are no secondary signs of appendicitis. There is mild prostate enlargement the bladder is unremarkable. IMPRESSION: No bowel obstruction or inflammatory changes. Mild interval enlargement of abdominal aortic aneurysm. Reviewed, Interpreted and Dictated by Eleazar Head MD Transcribed by Brandi Barbosa Authenticated and [facility]
--- NOTE | 2022-04-24 11:40 | CT_ITS ---
FINAL REPORT TECHNIQUE: Thin section axial CT with contrast with multiplanar reconstruction CLINICAL HISTORY: chest pain COMPARISON: None FINDINGS: Pulmonary vessels enhance in normal fashion without evidence of embolism. Thoracic aorta shows no dissection or aneurysm. No pulmonary mass or infiltrate is present. Advanced emphysema is noted. There is scattered scarring. There is no significant pleural effusion. There is no significant pericardial effusion. No mediastinal or hilar adenopathy is present. IMPRESSION: No evidence of pulmonary embolism Reviewed, Interpreted and Dictated by Eleazar Head MD Transcribed by Brandi Barbosa Authenticated and [facility]
[2022-04-24 12:06] LABS: Chloride 105 mmol/L (98-107)
[2022-04-24 12:07] LABS: Potassium 3.7 mmoL/L (3.5-5.1); Sodium 140 mmol/L (136-145)
[2022-04-24 12:08] LABS: Basophils % 0.5 % (0.1-2.0); Eosinophils # 0.3 K/mm3 (0.0-0.4); Eosinophils % 5.3 % (0.1-12.0); Hematocrit 36.9 % (42.0-52.0); Lymphocytes # 1.1 K/mm3 (0.7-4.5); Lymphocytes % 21.7 % (10-50); Mean Corpuscular HGB Conc 32.5 g/dL (31.8-35.4); Mean Corpuscular Hemoglobin 34.6 pg (27.0-31.2); Mean Corpuscular Volume 106.6 fl (80-94); Mean Platelet Volume 8.1 fl (7.4-10.4); Monocytes # 0.4 K/mm3 (0.1-1.0); Monocytes % 8.2 % (1.7-9.3); Neutrophils # 3.2 K/mm3 (1.8-7.8); Neutrophils % 64.3 % (37.0-80.0); Platelet Count 221 K/mm3 (142-424); Red Blood Count 3.46 M/mm3 (4.60-6.20); Red Cell Distribution Width 15.5 % (11.5-17.5); White Blood Count 4.9 K/mm3 (4.8-10.8)
[2022-04-24 12:09] LABS: Alanine Aminotransferase 16 U/L (12-78); Alkaline Phosphatase 118 U/L (38-126); Anion Gap 11.7 mEq/L (5-15); Aspartate Amino Transferase 23 U/L (17-59); Bilirubin,Total 2.2 mg/dl (0.2-1.3); Blood Urea Nitrogen 26 mg/dl (9-20); Carbon Dioxide 27 mmol/L (22.0-30.0); Creatinine Clearance Estimated 32 mL/min (50-200); Estimated Glomerular Filt Rate 65 ml/min (>60); GFR (African American) 79 ML/MIN (>60)
[2022-04-24 12:10] LABS: Albumin Level 3.9 g/dl (3.5-5.0); Albumin/Globulin Ratio 1.4 (1.1-1.8); Calcium 8.8 mg/dl (8.4-10.2); Globulin 2.7 g/dL (1.3-3.2); Glucose 88 mg/dl (74-100); Total Protein,Serum 6.6 g/dl (6.3-8.2)
--- NOTE | 2022-04-24 12:13 | ECG_ITS ---
APPROVED REPORT Exam: Resting ECG HR:44 bpm ECG Measurements Heart Rate 44 AXES VA 146 P 79 QRSd 102 QRS 73 QT 517 T 79 QTc 468 Conclusion SINUS BRADYCARDIA WITH OCCASIONAL VENTRICULAR PREMATURE COMPLEXES elizabeth septal changes noted from prior ABNORMAL ECG UNCONFIRMED REPORT Electronically signed by : Elias Lobato MD 04/24/2022 21:12:37
[2022-04-24 12:15] LABS: Coronavirus 19, PCR Not Detected (NotDetected); Influenza A, PCR Not Detected (NotDetected); Influenza B, PCR Not Detected (NotDetected)
[2022-04-24 12:27] LABS: Troponin I < 0.01 ng/ml (0.00-0.034)
== END 2022-04-24 15:00 | disposition home or self-care (01) ==
PROVIDERS: Emergency Provider Emergency Medicine; PCP Internal Medicine
DX: R19.7 Diarrhea, unspecified (principal); R53.1 Weakness; C90.00 Multiple myeloma not having achieved remission; Z87.891 Personal history of nicotine dependence
CPT/HCPCS: 71275; 74177; 80053; 84484; 85025; 93005; 96360; 99285; C9803; Q9967; U0003; U0005

== ENCOUNTER → 2022-04-27 09:52 | Outpatient (CLI) | payer MEDICARE, OTHER, SELFPAY ==
--- NOTE | 2022-04-27 10:04 | CT_ITS ---
FINAL REPORT TECHNIQUE: After the administration of intravenous contrast, axial images were obtained through the abdomen and pelvis by computed tomography. This study was performed with technique to keep radiation doses as low as reasonably achievable, (ALARA). Individualized dose reduction techniques using automated exposure control or adjustment of the MA and/or KV according to the patient's size were employed. CLINICAL HISTORY: MULTIPLE MYOLOMA COMPARISON: 04/24/2022 FINDINGS: Abdomen: There is mild, nonspecific gallbladder wall thickening. The liver is normal in size and attenuation. The spleen is unremarkable. The adrenals are normal. The pancreas is unremarkable. The kidneys enhance appropriately. Again seen is a 34 mm abdominal aortic aneurysm, stable from prior exam. There is no free fluid or adenopathy. Pelvis: The appendix is not identified. The urinary bladder is unremarkable. Prostate calcifications are noted. There is no free fluid or adenopathy. IMPRESSION: Mild, nonspecific gallbladder wall thickening. Stable, 34 mm abdominal aortic aneurysm. Reviewed, Interpreted and Dictated by Dipesh Clinton III, MD Transcribed by nAy Newberry Authenticated and [facility]
--- NOTE | 2022-04-27 10:04 | CT_ITS ---
FINAL REPORT CLINICAL HISTORY: MULTIPLE MYOLOMA COMPARISON: 04/24/2022 FINDINGS: Axial CT images of the chest were obtained with contrast. Coronal reformatted images were also obtained. This study was performed with techniques to keep radiation doses as low as reasonably achievable, (ALARA). Individualized dose reduction techniques using automated exposure control or adjustment of mA and/or KV according to the patient''''s size were employed. There is diffuse, mild wall thickening of the esophagus which is nonspecific, favor inflammatory. There is no evidence of mediastinal or hilar mass or adenopathy.No axillary mass or adenopathy is identified. No localized pulmonary inflammatory process is identified. There is bilateral pulmonary scarring. Moderate emphysematous change is seen. There is a 9 mm nodule in the lateral right middle lobe which is stable from prior exam but new from exam performed in 2018. Recommend follow-up chest CT in 3 months or PET-CT. IMPRESSION: 9 mm right lung nodule. Recommend follow-up chest CT in 3 months or PET-CT. Reviewed, Interpreted and Dictated by Dipesh Clinton III, MD Transcribed by Any Newberry Authenticated and [facility]
== END ==
PROVIDERS: PCP Internal Medicine; Visit Provider Internal Medicine Medical Oncology
DX: C90.00 Multiple myeloma not having achieved remission (principal)
CPT/HCPCS: 71260; 74177; Q9967

== ENCOUNTER 2022-05-12 18:41 | Emergency (ER) | payer MEDICARE, OTHER, SELFPAY ==
[2022-05-12 18:43] VITALS: BP 124/50; PULSE 69; RESP 16; TEMP 36.6; O2SAT 100; BMI 19.0
[2022-05-12 19:01] VITALS: BP 119/59; PULSE 61; O2SAT 100
[2022-05-12 19:28] LABS: Basophils # 0.1 K/mm3 (0-0.2); Basophils % 1.1 % (0.1-2.0); Chloride 107 mmol/L (98-107); Eosinophils # 0.1 K/mm3 (0.0-0.4); Eosinophils % 2.2 % (0.1-12.0); Hematocrit 31.6 % (42.0-52.0); Hemoglobin 10.1 g/dL (14.1-18.0); Lymphocytes # 1.1 K/mm3 (0.7-4.5); Lymphocytes % 21.7 % (10-50); Mean Corpuscular Hemoglobin 33.8 pg (27.0-31.2); Mean Corpuscular Volume 105.8 fl (80-94); Mean Platelet Volume 7.8 fl (7.4-10.4); Monocytes # 0.2 K/mm3 (0.1-1.0); Monocytes % 4.2 % (1.7-9.3); Neutrophils # 3.7 K/mm3 (1.8-7.8); Neutrophils % 70.8 % (37.0-80.0); Platelet Count 346 K/mm3 (142-424); Red Blood Count 2.99 M/mm3 (4.60-6.20); Red Cell Distribution Width 15.8 % (11.5-17.5); Sodium 139 mmol/L (136-145); White Blood Count 5.3 K/mm3 (4.8-10.8)
[2022-05-12 19:30] VITALS: BP 119/56; PULSE 53; O2SAT 100
[2022-05-12 19:30] LABS: Alanine Aminotransferase 21 U/L (12-78); Aspartate Amino Transferase 35 U/L (17-59); Blood Urea Nitrogen 19 mg/dl (9-20); Creatinine Clearance Estimated 45 mL/min (50-200); Estimated Glomerular Filt Rate 65 ml/min (>60); GFR (African American) 79 ML/MIN (>60)
[2022-05-12 19:31] LABS: Albumin Level 2.8 g/dl (3.5-5.0); Albumin/Globulin Ratio 1.3 (1.1-1.8); Alkaline Phosphatase 92 U/L (38-126); Bilirubin,Total 0.6 mg/dl (0.2-1.3); Calcium 8.1 mg/dl (8.4-10.2); Carbon Dioxide 28 mmol/L (22.0-30.0); Globulin 2.2 g/dL (1.3-3.2); Glucose 106 mg/dl (74-100)
[2022-05-12 19:33] LABS: Activated Partial Thrombo Time 30.3 seconds (22.8-30.6); INR 0.97 (0.9-1.1); Prothrombin Time 10.5 seconds (10.1-12.5)
[2022-05-12 19:37] LABS: C-Reactive Protein 103.8 mg/L (0-4)
[2022-05-12 19:43] LABS: NT Pro Brain Natriuretic Pep. 1020 pg/mL (0-450)
[2022-05-12 19:57] VITALS: BP 114/53; PULSE 69; RESP 16; TEMP 36.6; O2SAT 97
--- NOTE | 2022-05-12 20:16 | HMH.EDGENADL ---
Discharge Plan Disposition Patient Disposition: Home, Self-Care Condition: Fair Prescriptions Prescriptions: New cephalexin 750 mg capsule 750 mg PO TID 5 Days Qty: 15 0RF No Action clonazepam 0.5 mg tablet 0.5 mg PO DAILY amlodipine 10 mg tablet 10 mg PO DAILY Qty: 90 Label Comments: TAKE 1 TABLET BY MOUTH EVERY DAY Revlimid 10 mg capsule 10 mg PO DAILY Rx Instructions: swallow whole with glass of water; do not open, crush, chew , break, or dissolve latanoprost 0.005 % drops 0.5 ml OPHTHALMIC DAILY Label Comments: instill 1 drop IN THE LEFT EYE EVERY DAY AT BEDTIME spironolactone 25 mg tablet 25 mg PO DAILY Label Comments: TAKE ONE TABLET BY MOUTH EVERY DAY IN THE MORNING FOR FLUID gabapentin 600 MG tablet 600 mg PO BID PRN (Reason: PAIN) torsemide 20 MG tablet 40 mg PO DAILY potassium chloride 20 MEQ tablet extended release 20 meq PO BID Referrals Follow up/Referrals: Lyndon Reed MD [Primary Care Provider] - See instructions Clinical Impressions Clinical Impression: Cellulitis Instructions Patient Instructions: Cellulitis Discharge ED Provider: Alvaro Harris General Adult HPI General Chief complaint: PAIN Stated complaint: fluid seeping from LT leg Time Seen by Provider: 05/12/22 18:50 Mode of Arrival: Ambulatory Source of Information: Patient Limitations: No Limitations Description of Symptoms (Recalled from ER Triage Doc. by RN): Patient reports history of leaking legs and swelling. Over the last week his left leg has started leaking more and swelling. Reports he takes a fluid pill and has been taking this as normal. Denies fever, chills, chest pain, SOA History of Present Illness HPI narrative: Patient is a 76-year-old male with past medical history of lower extremity edema who presents with concern for swelling and leaking lower extremities. He says that over the last week his legs have started swelling and actually started leaking. He says that it has been soaking his bed at night. He denies any fever or chills. He says that the left one is a little bit more red compared to the right 1. He says that he has been compliant with taking his water pill. He denies any shortness of breath. Denies any orthopnea. He says he has been trying to prop it up on his recliner but is not not been able to. He says he has been trying to cover it but has not been wrapping it. Has not been wearing AYANA hose. Related Data Home Medications Medication Instructions Recorded Confirmed amlodipine 10 mg tablet 10 mg PO DAILY . #90 tabs 11/10/18 05/12/22 lenalidomide 10 mg capsule 10 mg PO DAILY CANCER 04/21/19 05/12/22 (Revlimid) gabapentin 600 mg tablet 600 mg PO BID PRN PAIN 08/17/19 05/12/22 potassium chloride 20 mEq 20 meq PO BID HYPOKALEMIA 08/17/19 05/12/22 tablet,extended release torsemide 20 mg tablet 40 mg PO DAILY FLUID RETENTION 08/17/19 05/12/22 clonazepam 0.5 mg tablet 0.5 mg PO DAILY Anxiety 06/06/21 05/12/22 latanoprost 0.005 % eye drops 0.5 ml ophthalmic (eye) DAILY 08/11/21 05/12/22 Supplement spironolactone 25 mg tablet 25 mg PO DAILY Edema 05/01/22 05/12/22 Previous Rx's Medication Instructions Recorded cephalexin 750 mg capsule 750 mg PO TID 5 days #15 caps 05/12/22 Allergies Allergy/AdvReac Type Severity Reaction Status Date / Time No Known Allergies Allergy Verified 05/01/22 11:06 [facility] Disclaimer: The information contained in this section may have been updated after the patient was seen, as this information can be updated by other users. Medical History Multiple myeloma Social History Smoking Status: Former smoker pack-years: 60 alcohol intake: never substance use type: denies use current occupational status: retired Travel in the last 8 weeks:
[2022-05-12 20:21] LABS: Erythrocyte Sedimentation Rate 45 mm/hr (0-20)
== END 2022-05-12 20:04 | disposition home or self-care (01) ==
PROVIDERS: Emergency Provider Student in an Organized Health Care Education/Training Program; PCP Internal Medicine
DX: L03.116 Cellulitis of left lower limb (principal); C90.00 Multiple myeloma not having achieved remission; Z87.891 Personal history of nicotine dependence
CPT/HCPCS: 80053; 83880; 85025; 85610; 85651; 85730; 86140; 99285

== ENCOUNTER → 2022-07-13 11:18 | Outpatient (CLI) | payer MEDICARE, OTHER, SELFPAY ==
[2022-07-13 12:06] LABS: Adenovirus F 40/41, stool Not Detected (NotDetected); Astrovirus Not Detected (NotDetected); Campylobacter Not Detected (NotDetected); Clostridium Difficile A/B, PCR Not Detected (NotDetected); Cryptosporidium Not Detected (NotDetected); Cyclospora Cayetanesis Not Detected (NotDetected); Entamoeba histolytica Not Detected (NotDetected); Enteroaggregative E coli Not Detected (NotDetected); Enteropathogenic E coli Not Detected (NotDetected); Enterotoxigenic E coli Not Detected (NotDetected); Giardia lamblia Not Detected (NotDetected); Norovirus Not Detected (NotDetected); Plesimonas Shigalloides, PCR Not Detected (NotDetected); Rotavirus A Not Detected (NotDetected); Salmonella, PCR Not Detected (NotDetected); Sapovirus Not Detected (NotDetected); Shiga-like toxin E coli Not Detected (NotDetected); Shigella Enterovasive E coli Not Detected (NotDetected); Vibrio Cholerae Not Detected (NotDetected); Vibrio, PCR Not Detected (NotDetected); Yersinia Entercolitica, PCR Not Detected (NotDetected)
== END ==
PROVIDERS: PCP Internal Medicine; Visit Provider Internal Medicine
DX: R19.7 Diarrhea, unspecified (principal)
CPT/HCPCS: 87177; 87205; 87506

== ENCOUNTER → 2022-08-10 10:17 | Outpatient (CLI) | payer MEDICARE, OTHER, SELFPAY ==
[2022-08-10 11:35] LABS: Basophils # 0.1 K/mm3 (0-0.2); Basophils % 0.7 % (0.1-2.0); Eosinophils # 0.9 K/mm3 (0.0-0.4); Eosinophils % 11.7 % (0.1-12.0); Hematocrit 39.2 % (42.0-52.0); Hemoglobin 12.8 g/dL (14.1-18.0); Lymphocytes # 1.8 K/mm3 (0.7-4.5); Lymphocytes % 24.3 % (10-50); Mean Corpuscular HGB Conc 32.5 g/dL (31.8-35.4); Mean Corpuscular Hemoglobin 31.7 pg (27.0-31.2); Mean Corpuscular Volume 97.6 fl (80-94); Mean Platelet Volume 7.5 fl (7.4-10.4); Monocytes # 0.5 K/mm3 (0.1-1.0); Monocytes % 6.6 % (1.7-9.3); Neutrophils # 4.2 K/mm3 (1.8-7.8); Neutrophils % 56.6 % (37.0-80.0); Platelet Count 370 K/mm3 (142-424); Red Blood Count 4.02 M/mm3 (4.60-6.20); Red Cell Distribution Width 13.7 % (11.5-17.5); White Blood Count 7.4 K/mm3 (4.8-10.8)
[2022-08-10 12:08] LABS: Alanine Aminotransferase 13 U/L (12-78); Albumin Level 4.1 g/dl (3.5-5.0); Albumin/Globulin Ratio 1.8 (1.1-1.8); Alkaline Phosphatase 112 U/L (38-126); Anion Gap 12.9 mEq/L (5-15); Aspartate Amino Transferase 25 U/L (17-59); Bilirubin,Total 0.5 mg/dl (0.2-1.3); Blood Urea Nitrogen 17 mg/dl (9-20); Carbon Dioxide 29 mmol/L (22.0-30.0); Chloride 103 mmol/L (98-107); Estimated Glomerular Filt Rate 65 ml/min (>60); GFR (African American) 79 ML/MIN (>60); Globulin 2.3 g/dL (1.3-3.2); Glucose 87 mg/dl (74-100); Potassium 3.9 mmoL/L (3.5-5.1); Sodium 141 mmol/L (136-145); Total Protein,Serum 6.4 g/dl (6.3-8.2)
[2022-08-11 17:14] LABS: Albumin 3.8 g/dL (2.9-4.4); Alpha-1-Globulin 0.2 g/dL (0.0-0.4); Alpha-2-Globulin 0.8 g/dL (0.4-1.0); Gamma Globulin 0.6 g/dL (0.4-1.8); Immunoglobulin A, Qn 495 mg/dL (61-437); Immunoglobulin G, Qn 439 mg/dL (603-1613); Immunoglobulin M, Qn 34 mg/dL (15-143); Protein, Total 6.5 g/dL (6.0-8.5)
== END ==
PROVIDERS: PCP Internal Medicine; Visit Provider Internal Medicine Medical Oncology
DX: C90.00 Multiple myeloma not having achieved remission (principal)
CPT/HCPCS: 36415; 80053; 82784; 84155; 84165; 85025; 86334

== ENCOUNTER → 2022-11-23 10:42 | Outpatient (CLI) | payer MEDICARE, OTHER, SELFPAY ==
[2022-11-23 11:03] LABS: Basophils # 0.1 K/mm3 (0-0.2); Basophils % 1.2 % (0.1-2.0); Eosinophils # 0.6 K/mm3 (0.0-0.4); Eosinophils % 9.9 % (0.1-12.0); Hematocrit 39.5 % (42.0-52.0); Hemoglobin 12.8 g/dL (14.1-18.0); Lymphocytes # 1.7 K/mm3 (0.7-4.5); Lymphocytes % 29.4 % (10-50); Mean Corpuscular HGB Conc 32.4 g/dL (31.8-35.4); Mean Corpuscular Hemoglobin 31.2 pg (27.0-31.2); Mean Corpuscular Volume 96.2 fl (80-94); Mean Platelet Volume 7.7 fl (7.4-10.4); Monocytes # 0.4 K/mm3 (0.1-1.0); Monocytes % 6.6 % (1.7-9.3); Neutrophils % 52.9 % (37.0-80.0); Platelet Count 342 K/mm3 (142-424); Red Blood Count 4.11 M/mm3 (4.60-6.20); Red Cell Distribution Width 14.1 % (11.5-17.5); White Blood Count 5.7 K/mm3 (4.8-10.8)
[2022-11-23 11:47] LABS: Alanine Aminotransferase 31 U/L (12-78); Albumin Level 4.2 g/dl (3.5-5.0); Albumin/Globulin Ratio 1.6 (1.1-1.8); Alkaline Phosphatase 144 U/L (38-126); Anion Gap 12.3 mEq/L (5-15); Aspartate Amino Transferase 44 U/L (17-59); Bilirubin,Total 0.4 mg/dl (0.2-1.3); Blood Urea Nitrogen 12 mg/dl (9-20); Calcium 9.4 mg/dl (8.4-10.2); Carbon Dioxide 30 mmol/L (22.0-30.0); Chloride 103 mmol/L (98-107); Estimated Glomerular Filt Rate 65 ml/min (>60); GFR (African American) 78 ML/MIN (>60); Globulin 2.6 g/dL (1.3-3.2); Glucose 92 mg/dl (74-100); Potassium 5.3 mmoL/L (3.5-5.1); Sodium 140 mmol/L (136-145); Total Protein,Serum 6.8 g/dl (6.3-8.2)
[2022-11-24 14:19] LABS: Albumin 3.9 g/dL (2.9-4.4); Alpha-1-Globulin 0.2 g/dL (0.0-0.4); Alpha-2-Globulin 0.8 g/dL (0.4-1.0); Gamma Globulin 0.8 g/dL (0.4-1.8); Immunoglobulin A, Qn 574 mg/dL (61-437); Immunoglobulin G, Qn 612 mg/dL (603-1613); Immunoglobulin M, Qn 34 mg/dL (15-143); Protein, Total 6.8 g/dL (6.0-8.5)
[2022-12-10 09:30] LABS: Free Kappa Lt Chains 19.3
== END ==
PROVIDERS: PCP Internal Medicine; Visit Provider Internal Medicine Medical Oncology
DX: C90.00 Multiple myeloma not having achieved remission (principal)
CPT/HCPCS: 36415; 80053; 82784; 83883; 84155; 84165; 85025; 86334

== ENCOUNTER → 2023-01-04 12:01 | Outpatient (CLI) | payer MEDICARE, OTHER, SELFPAY ==
--- NOTE | 2023-01-04 12:12 | XR_ITS ---
FINAL REPORT CLINICAL HISTORY: RT HIP PAIN, COMPARISON: None FINDINGS: RIGHT HIP Two views of the right hip demonstrate no acute fracture or dislocation. The joint spaces appear normal. The visualized bony structures are well aligned. No soft tissue abnormality is seen. IMPRESSION: No acute bony abnormality. Reviewed, Interpreted and Dictated by Mainor Wiley MD Transcribed by Omayra Hsieh Authenticated and [facility]
== END ==
PROVIDERS: PCP Internal Medicine; Visit Provider Internal Medicine
DX: M25.551 Pain in right hip (principal)
CPT/HCPCS: 73502

== ENCOUNTER → 2023-03-23 11:03 | Outpatient (CLI) | payer MEDICARE, OTHER, SELFPAY ==
[2023-03-23 11:30] LABS: Basophils % 0.5 % (0.1-2.0); Eosinophils # 0.7 K/mm3 (0.0-0.4); Eosinophils % 10.7 % (0.1-12.0); Hematocrit 37.7 % (42.0-52.0); Hemoglobin 13.1 g/dL (14.1-18.0); Lymphocytes # 1.8 K/mm3 (0.7-4.5); Lymphocytes % 26.7 % (10-50); Mean Corpuscular HGB Conc 34.7 g/dL (31.8-35.4); Mean Corpuscular Hemoglobin 33.6 pg (27.0-31.2); Mean Platelet Volume 6.4 fl (7.4-10.4); Monocytes # 0.3 K/mm3 (0.1-1.0); Monocytes % 4.8 % (1.7-9.3); Neutrophils # 3.9 K/mm3 (1.8-7.8); Neutrophils % 57.4 % (37.0-80.0); Platelet Count 296 K/mm3 (142-424); Red Blood Count 3.88 M/mm3 (4.60-6.20); Red Cell Distribution Width 13.7 % (11.5-17.5); White Blood Count 6.8 K/mm3 (4.8-10.8)
[2023-03-23 12:09] LABS: Alanine Aminotransferase 18 U/L (12-78); Alkaline Phosphatase 112 U/L (38-126); Aspartate Amino Transferase 30 U/L (17-59); Bilirubin,Total 0.5 mg/dl (0.2-1.3); Blood Urea Nitrogen 16 mg/dl (9-20); Carbon Dioxide 31 mmol/L (22.0-30.0); Chloride 102 mmol/L (98-107); Estimated Glomerular Filt Rate 59 ml/min (>60); GFR (African American) 71 ML/MIN (>60)
[2023-03-23 13:07] LABS: Albumin Level 4.3 g/dl (3.5-5.0); Albumin/Globulin Ratio 1.5 (1.1-1.8); Anion Gap 10.2 mEq/L (5-15); Globulin 2.8 g/dL (1.3-3.2); Glucose 103 mg/dl (74-100); Potassium 4.2 mmoL/L (3.5-5.1); Sodium 139 mmol/L (136-145); Total Protein,Serum 7.1 g/dl (6.3-8.2)
[2023-03-24 15:11] LABS: Immunoglobulin A, Qn 644 mg/dL (61-437); Immunoglobulin G, Qn 601 mg/dL (603-1613); Immunoglobulin M, Qn 45 mg/dL (15-143)
[2023-03-25 16:24] LABS: Alpha-1-Globulin 0.2 g/dL (0.0-0.4); Alpha-2-Globulin 0.8 g/dL (0.4-1.0); Gamma Globulin 0.9 g/dL (0.4-1.8); Protein, Total 7.1 g/dL (6.0-8.5)
== END ==
PROVIDERS: PCP Internal Medicine; Visit Provider Internal Medicine Medical Oncology
DX: C90.00 Multiple myeloma not having achieved remission (principal)
CPT/HCPCS: 36415; 80053; 82784; 84155; 84165; 85025; 86334

== ENCOUNTER → 2023-03-25 11:17 | Outpatient (CLI) | payer MEDICARE, OTHER, SELFPAY ==
[2023-03-29 09:45] LABS: Free Lambda Lt Chains 161.9
== END ==
PROVIDERS: PCP Internal Medicine; Visit Provider Internal Medicine Medical Oncology
DX: C90.00 Multiple myeloma not having achieved remission (principal)
CPT/HCPCS: 36415; 83883

== ENCOUNTER 2023-07-02 10:04 | Outpatient (CLI) | payer MEDICARE, OTHER, SELFPAY ==
[2023-07-02 11:23] LABS: Basophils # 0.1 K/mm3 (0-0.2); Basophils % 0.9 % (0.1-2.0); Eosinophils # 0.4 K/mm3 (0.0-0.4); Eosinophils % 7.1 % (0.1-12.0); Hematocrit 42.7 % (42.0-52.0); Hemoglobin 13.7 g/dL (14.1-18.0); Lymphocytes # 1.5 K/mm3 (0.7-4.5); Lymphocytes % 26.9 % (10-50); Mean Corpuscular Hemoglobin 32.8 pg (27.0-31.2); Mean Corpuscular Volume 102.2 fl (80-94); Mean Platelet Volume 7.5 fl (7.4-10.4); Monocytes # 0.3 K/mm3 (0.1-1.0); Monocytes % 6.1 % (1.7-9.3); Neutrophils # 3.2 K/mm3 (1.8-7.8); Neutrophils % 59.1 % (37.0-80.0); Platelet Count 349 K/mm3 (142-424); Red Blood Count 4.18 M/mm3 (4.60-6.20); Red Cell Distribution Width 13.7 % (11.5-17.5); White Blood Count 5.4 K/mm3 (4.8-10.8)
[2023-07-02 12:08] LABS: Alanine Aminotransferase 13 U/L (12-78); Albumin Level 4.3 g/dl (3.5-5.0); Albumin/Globulin Ratio 1.5 (1.1-1.8); Alkaline Phosphatase 122 U/L (38-126); Anion Gap 13.3 mEq/L (5-15); Aspartate Amino Transferase 29 U/L (17-59); Bilirubin,Total 0.7 mg/dl (0.2-1.3); Blood Urea Nitrogen 17 mg/dl (9-20); Calcium 9.8 mg/dl (8.4-10.2); Carbon Dioxide 29 mmol/L (22.0-30.0); Chloride 102 mmol/L (98-107); Estimated Glomerular Filt Rate 59 ml/min (>60); GFR (African American) 71 ML/MIN (>60); Globulin 2.8 g/dL (1.3-3.2); Glucose 90 mg/dl (74-100); Potassium 4.3 mmoL/L (3.5-5.1); Sodium 140 mmol/L (136-145); Total Protein,Serum 7.1 g/dl (6.3-8.2)
[2023-07-05 14:45] LABS: Albumin 3.8 g/dL (2.9-4.4); Alpha-1-Globulin 0.2 g/dL (0.0-0.4); Alpha-2-Globulin 0.8 g/dL (0.4-1.0); Gamma Globulin 1.1 g/dL (0.4-1.8); Immunoglobulin A, Qn 1040 mg/dL (61-437); Immunoglobulin G, Qn 637 mg/dL (603-1613); Immunoglobulin M, Qn 44 mg/dL (15-143); Protein, Total 7.2 g/dL (6.0-8.5)
[2023-07-06 08:43] LABS: Free Kappa Lt Chains 14.9; Free Lambda Lt Chains 219.2; PDF SCANNED IMAGE
== END 2023-07-02 23:59 ==
LOC: LAB 10:05
PROVIDERS: PCP Internal Medicine; Visit Provider Internal Medicine Medical Oncology
DX: C90.00 Multiple myeloma not having achieved remission (principal)
CPT/HCPCS: 36415; 80053; 82784; 83883; 84155; 84165; 85025; 86334

== ENCOUNTER 2023-10-04 11:16 | Outpatient (CLI) | payer MEDICARE, OTHER, SELFPAY ==
[2023-10-04 11:50] LABS: Basophils # 0.1 K/mm3 (0-0.2); Basophils % 1.3 % (0.1-2.0); Eosinophils # 0.4 K/mm3 (0.0-0.4); Eosinophils % 5.5 % (0.1-12.0); Hematocrit 42.3 % (42.0-52.0); Hemoglobin 13.9 g/dL (14.1-18.0); Lymphocytes # 1.4 K/mm3 (0.7-4.5); Mean Corpuscular HGB Conc 32.8 g/dL (31.8-35.4); Mean Corpuscular Hemoglobin 32.8 pg (27.0-31.2); Mean Platelet Volume 7.2 fl (7.4-10.4); Monocytes # 0.3 K/mm3 (0.1-1.0); Monocytes % 4.7 % (1.7-9.3); Neutrophils # 4.4 K/mm3 (1.8-7.8); Neutrophils % 67.5 % (37.0-80.0); Platelet Count 374 K/mm3 (142-424); Red Blood Count 4.23 M/mm3 (4.60-6.20); Red Cell Distribution Width 14.1 % (11.5-17.5); White Blood Count 6.4 K/mm3 (4.8-10.8)
[2023-10-04 12:26] LABS: Alanine Aminotransferase 16 U/L (12-78); Albumin Level 4.3 g/dl (3.5-5.0); Albumin/Globulin Ratio 1.2 (1.1-1.8); Alkaline Phosphatase 120 U/L (38-126); Anion Gap 15.4 mEq/L (5-15); Aspartate Amino Transferase 27 U/L (17-59); Bilirubin,Total 0.6 mg/dl (0.2-1.3); Blood Urea Nitrogen 18 mg/dl (9-20); Calcium 10.2 mg/dl (8.4-10.2); Carbon Dioxide 29 mmol/L (22.0-30.0); Chloride 100 mmol/L (98-107); Estimated Glomerular Filt Rate 59 ml/min (>60); GFR (African American) 71 ML/MIN (>60); Globulin 3.6 g/dL (1.3-3.2); Glucose 103 mg/dl (74-100); Potassium 4.4 mmoL/L (3.5-5.1); Sodium 140 mmol/L (136-145); Total Protein,Serum 7.9 g/dl (6.3-8.2)
[2023-10-05 13:11] LABS: Albumin 4.2 g/dL (2.9-4.4); Alpha-1-Globulin 0.2 g/dL (0.0-0.4); Alpha-2-Globulin 0.9 g/dL (0.4-1.0); Gamma Globulin 1.3 g/dL (0.4-1.8)
[2023-10-06 07:45] LABS: Immunoglobulin A, Qn 1460 mg/dL (61-437); Immunoglobulin G, Qn 527 mg/dL (603-1613); Immunoglobulin M, Qn 34 mg/dL (15-143)
[2023-10-08 04:09] LABS: Immunoglobulin E, Total 9 IU/mL (6-495)
[2023-10-08 11:22] LABS: Free Kappa Lt Chains 10.7; PDF SCANNED IMAGE
[2023-10-08 11:23] LABS: Free Lambda Lt Chains 219.1
== END 2023-10-04 23:59 | disposition home or self-care (01) ==
LOC: LAB 11:21
PROVIDERS: PCP Internal Medicine; Visit Provider Internal Medicine Medical Oncology
DX: C90.00 Multiple myeloma not having achieved remission (principal)
CPT/HCPCS: 36415; 80053; 82784; 82785; 83883; 84155; 84165; 85025; 86334

== ENCOUNTER 2023-12-30 13:44 | Outpatient (CLI) | payer MEDICARE, OTHER, SELFPAY ==
[2023-12-30 14:30] LABS: Basophils # 0.1 K/mm3 (0-0.2); Eosinophils # 0.4 K/mm3 (0.0-0.4); Eosinophils % 6.1 % (0.1-12.0); Hematocrit 38.4 % (42.0-52.0); Hemoglobin 11.8 g/dL (14.1-18.0); Lymphocytes # 1.6 K/mm3 (0.7-4.5); Lymphocytes % 24.6 % (10-50); Mean Corpuscular HGB Conc 30.7 g/dL (31.8-35.4); Mean Corpuscular Hemoglobin 31.8 pg (27.0-31.2); Mean Corpuscular Volume 103.6 fl (80-94); Monocytes # 0.4 K/mm3 (0.1-1.0); Monocytes % 5.9 % (1.7-9.3); Neutrophils % 62.3 % (37.0-80.0); Platelet Count 431 K/mm3 (142-424); Red Cell Distribution Width 13.5 % (11.5-17.5); White Blood Count 6.4 K/mm3 (4.8-10.8)
[2023-12-30 15:17] LABS: Chloride 103 mmol/L (98-107)
[2023-12-30 15:18] LABS: Albumin Level 4.2 g/dl (3.5-5.0); Potassium 4.5 mmoL/L (3.5-5.1); Sodium 138 mmol/L (136-145)
[2023-12-30 15:20] LABS: Alanine Aminotransferase 14 U/L (12-78); Anion Gap 11.5 mEq/L (5-15); Aspartate Amino Transferase 25 U/L (17-59); Blood Urea Nitrogen 19 mg/dl (9-20); Carbon Dioxide 28 mmol/L (22.0-30.0); Estimated Glomerular Filt Rate 58 ml/min (>60); GFR (African American) 71 ML/MIN (>60)
[2023-12-30 15:21] LABS: Albumin/Globulin Ratio 1.1 (1.1-1.8); Alkaline Phosphatase 109 U/L (38-126); Bilirubin,Total 0.7 mg/dl (0.2-1.3); Calcium 9.4 mg/dl (8.4-10.2); Globulin 3.8 g/dL (1.3-3.2); Glucose 101 mg/dl (74-100)
[2024-01-03 15:16] LABS: Albumin 3.8 g/dL (2.9-4.4); Alpha-1-Globulin 0.1 g/dL (0.0-0.4); Alpha-2-Globulin 0.8 g/dL (0.4-1.0); Free Lambda Lt Chains 296.3 mg/L (5.7-26.3); Gamma Globulin 1.8 g/dL (0.4-1.8)
[2024-01-04 09:22] LABS: Immunoglobulin G, Qn 460 mg/dL (603-1613)
[2024-02-24 15:44] LABS: PDF SCANNED IMAGE
== END 2023-12-30 23:59 | disposition home or self-care (01) ==
LOC: LAB 13:46
PROVIDERS: PCP Internal Medicine; Visit Provider Internal Medicine Medical Oncology
DX: D64.9 Anemia, unspecified (principal); C90.00 Multiple myeloma not having achieved remission
CPT/HCPCS: 36415; 80053; 82784; 83883; 84155; 84165; 85025

== ENCOUNTER 2024-02-03 11:53 | Outpatient (CLI) | payer MEDICARE, OTHER, SELFPAY ==
[2024-02-03 12:24] LABS: Basophils % 0.3 % (0.1-2.0); Eosinophils % 0.3 % (0.1-12.0); Hematocrit 38.9 % (42.0-52.0); Lymphocytes # 0.9 K/mm3 (0.7-4.5); Lymphocytes % 7.1 % (10-50); Mean Corpuscular HGB Conc 33.4 g/dL (31.8-35.4); Mean Corpuscular Hemoglobin 33.3 pg (27.0-31.2); Mean Corpuscular Volume 99.9 fl (80-94); Mean Platelet Volume 7.1 fl (7.4-10.4); Monocytes # 0.4 K/mm3 (0.1-1.0); Monocytes % 3.5 % (1.7-9.3); Neutrophils # 10.8 K/mm3 (1.8-7.8); Neutrophils % 88.8 % (37.0-80.0); Platelet Count 396 K/mm3 (142-424); Red Blood Count 3.89 M/mm3 (4.60-6.20); Red Cell Distribution Width 14.2 % (11.5-17.5); White Blood Count 12.2 K/mm3 (4.8-10.8)
[2024-02-03 12:32] LABS: MANUAL DIFFERENTIAL MANUAL DIFFERENTIAL (MANUAL DIFF)
[2024-02-03 12:50] LABS: Lymphocytes % 9 % (10-50); Monocytes % 4 % (2-9); Neutrophils % 87 % (42-76); Total Cells Counted 100
[2024-02-03 12:59] LABS: Platelet Estimate Normal; RBC Morphology Normal
[2024-02-03 13:36] LABS: Albumin Level 3.6 g/dl (3.5-5.0); Chloride 101 mmol/L (98-107); Potassium 4.2 mmoL/L (3.5-5.1); Sodium 137 mmol/L (136-145)
[2024-02-03 13:39] LABS: Alanine Aminotransferase 30 U/L (12-78); Albumin/Globulin Ratio 0.9 (1.1-1.8); Alkaline Phosphatase 78 U/L (38-126); Anion Gap 10.2 mEq/L (5-15); Aspartate Amino Transferase 26 U/L (17-59); Bilirubin,Total 0.7 mg/dl (0.2-1.3); Blood Urea Nitrogen 31 mg/dl (9-20); Calcium 9.6 mg/dl (8.4-10.2); Carbon Dioxide 30 mmol/L (22.0-30.0); Estimated Glomerular Filt Rate 72 ml/min (>60); GFR (African American) 87 ML/MIN (>60); Glucose 85 mg/dl (74-100); Total Protein,Serum 7.6 g/dl (6.3-8.2)
[2024-02-04 17:14] LABS: Free Kappa Lt Chains 6.9 mg/L (3.3-19.4); Free Lambda Lt Chains 237.9 mg/L (5.7-26.3)
[2024-02-07 14:11] LABS: Immunoglobulin A, Qn 2511 mg/dL (61-437); Immunoglobulin G, Qn 367 mg/dL (603-1613); Immunoglobulin M, Qn 26 mg/dL (15-143)
[2024-02-07 17:00] LABS: Albumin 3.2 g/dL (2.9-4.4); Alpha-1-Globulin 0.2 g/dL (0.0-0.4); Alpha-2-Globulin 0.8 g/dL (0.4-1.0); Gamma Globulin 1.5 g/dL (0.4-1.8); Protein, Total 7.6 g/dL (6.0-8.5)
[2024-02-24 16:05] LABS: PDF SCANNED IMAGE
== END 2024-02-03 23:59 | disposition home or self-care (01) ==
LOC: LAB 11:55
PROVIDERS: PCP Internal Medicine; Visit Provider Internal Medicine Medical Oncology
DX: C90.00 Multiple myeloma not having achieved remission (principal); I10 Essential (primary) hypertension; E53.8 Deficiency of other specified B group vitamins; J44.9 Chronic obstructive pulmonary disease, unspecified; F17.209 Nicotine dependence, unspecified, with unspecified nicotine-induced disorders; I87.2 Venous insufficiency (chronic) (peripheral); G62.9 Polyneuropathy, unspecified; R23.3 Spontaneous ecchymoses
CPT/HCPCS: 36415; 80053; 82784; 83883; 84155; 85007; 85025; 85027; 86334

== ENCOUNTER 2024-02-10 13:29 | Outpatient (CLI) | payer MEDICARE, OTHER, SELFPAY ==
[2024-02-10 12:37] LABS: Basophils % 0.1 % (0.1-2.0); Eosinophils % 0.1 % (0.1-12.0); Hematocrit 35.2 % (42.0-52.0); Hemoglobin 11.8 g/dL (14.1-18.0); Lymphocytes # 0.2 K/mm3 (0.7-4.5); Lymphocytes % 1.8 % (10-50); Mean Corpuscular HGB Conc 33.6 g/dL (31.8-35.4); Mean Corpuscular Volume 98.2 fl (80-94); Mean Platelet Volume 7.1 fl (7.4-10.4); Monocytes # 0.3 K/mm3 (0.1-1.0); Monocytes % 2.4 % (1.7-9.3); Neutrophils % 95.5 % (37.0-80.0); Platelet Count 383 K/mm3 (142-424); Red Blood Count 3.58 M/mm3 (4.60-6.20); Red Cell Distribution Width 14.8 % (11.5-17.5); White Blood Count 11.5 K/mm3 (4.8-10.8)
[2024-02-10 12:39] LABS: MANUAL DIFFERENTIAL MANUAL DIFFERENTIAL (MANUAL DIFF)
[2024-02-10 13:01] LABS: Albumin Level 3.6 g/dl (3.5-5.0); Chloride 104 mmol/L (98-107); Potassium 4.3 mmoL/L (3.5-5.1); Sodium 138 mmol/L (136-145)
[2024-02-10 13:03] LABS: Blood Urea Nitrogen 27 mg/dl (9-20); Estimated Glomerular Filt Rate 72 ml/min (>60); GFR (African American) 87 ML/MIN (>60)
[2024-02-10 13:04] LABS: Alanine Aminotransferase 48 U/L (12-78); Albumin/Globulin Ratio 0.8 (1.1-1.8); Alkaline Phosphatase 130 U/L (38-126); Anion Gap 10.3 mEq/L (5-15); Aspartate Amino Transferase 34 U/L (17-59); Bilirubin,Total 0.6 mg/dl (0.2-1.3); Calcium 9.7 mg/dl (8.4-10.2); Carbon Dioxide 28 mmol/L (22.0-30.0); Globulin 4.4 g/dL (1.3-3.2); Glucose 138 mg/dl (74-100)
[2024-02-10 13:22] LABS: Lymphocytes % 2 % (10-50); Monocytes % 1 % (2-9); Neutrophils % 97 % (42-76); Platelet Estimate Normal; RBC Morphology Normal; Total Cells Counted 100
== END 2024-02-10 23:59 | disposition home or self-care (01) ==
LOC: LAB.DROPOF 13:29
PROVIDERS: PCP Internal Medicine; Visit Provider Internal Medicine
DX: C90.00 Multiple myeloma not having achieved remission (principal); I10 Essential (primary) hypertension; R23.3 Spontaneous ecchymoses; E53.8 Deficiency of other specified B group vitamins; J44.9 Chronic obstructive pulmonary disease, unspecified; F17.209 Nicotine dependence, unspecified, with unspecified nicotine-induced disorders; I87.2 Venous insufficiency (chronic) (peripheral); G62.9 Polyneuropathy, unspecified
CPT/HCPCS: 80053; 85007; 85025; 85027

== ENCOUNTER 2024-03-02 14:56 | Inpatient (IN) | payer MEDICARE, OTHER, SELFPAY ==
[2024-03-02] VITALS (8 sets, daily range): BP systolic 99–109; BP diastolic 46–70; PULSE 46–100; RESP 16–32; TEMP 36.6–37.7; O2SAT 85–98; BMI 12.9; BMI 13.0
--- NOTE | 2024-03-02 14:56 | ECG_ITS ---
APPROVED REPORT Exam: Resting ECG HR:85 bpm ECG Measurements Heart Rate 85 AXES AZ 124 P 81 QRSd 84 QRS 71 QT 345 T 74 QTc 387 Conclusion SINUS RHYTHM WITH OCCASIONAL ECTOPIC PREMATURE COMPLEXES BORDERLINE ECG UNCONFIRMED REPORT Electronically signed by : MISTI DAVIS, 03/03/2024 06:52:45
--- NOTE | 2024-03-02 15:07 | PC.NURSE ---
Dr. Jules at [facility]
--- NOTE | 2024-03-02 15:12 | XR_ITS ---
PROCEDURE INFORMATION: Exam: XR Chest Exam date and time: 03/02/2024 3:33 PM Age: 78 years old Clinical indication: Other: Chest pain TECHNIQUE: Imaging protocol: Radiologic exam of the chest. Views: 1 view. COMPARISON: No relevant prior studies available. FINDINGS: Lungs: Severe emphysema. Patchy interstitial and alveolar airspace disease within the right upper lobe, right lung base and left lower lobe/retrocardiac region in adjacent to the left heart border. Favor multifocal pneumonia. Follow-up to ensure resolution. Consider CT if persistent. Pleural spaces: Unremarkable. No pleural effusion. No pneumothorax. Heart/Mediastinum: Unremarkable. No cardiomegaly. Bones/joints: Unremarkable. IMPRESSION: Severe emphysema. Patchy interstitial and alveolar airspace disease within the right upper lobe, right lung base and left lower lobe/retrocardiac region in adjacent to the left heart border. Favor multifocal pneumonia. Follow-up to ensure resolution. Consider CT if persistent. No prior chest radiographs for comparison.
--- NOTE | 2024-03-02 15:12 | CT_ITS ---
PROCEDURE INFORMATION: Exam: CT Head Without Contrast Exam date and time: 03/02/2024 3:36 PM Age: 78 years old Clinical indication: Altered mental status/memory loss; Additional info: AMS TECHNIQUE: Imaging protocol: Computed tomography of the head without contrast. Radiation optimization: All CT scans at this facility use at least one of these dose optimization techniques: automated exposure control; mA and/or kV adjustment per patient size (includes targeted exams where dose is matched to clinical indication); or iterative reconstruction. COMPARISON: No relevant prior studies available. FINDINGS: Brain: Extensive hypodensity is seen in the periventricular cerebral white matter. This change is nonspecific but is most likely secondary to chronic ischemia within microvascular distributions. No other intra or extra-axial masses, lesions or collections. Whitney white matter distinction is maintained throughout the brain. No radiographic evidence of intracranial hemorrhage. No radiographic evidence of acute intracranial pathology. Focus of encephalomalacia in the right posterior temporal occipital and calcarine region. Encephalomalacia in the left frontal lobe along the convexity. Brain is atrophic. Cerebral ventricles: Ventricles are enlarged on the basis of mild diffuse cerebral volume loss. Paranasal sinuses: Visualized sinuses are unremarkable. No fluid levels. Mastoid air cells: Visualized mastoid air cells are well aerated. Orbital cavities: Calcified right orbit Bones: Unremarkable. No acute fracture. Soft tissues: Unremarkable. IMPRESSION: No radiographic evidence of acute intracranial pathology. Extensive small vessel ischemic changes. See above. Consider MRI if indicated.
--- NOTE | 2024-03-02 15:15 | ED_ITS ---
Discharge Plan Disposition Patient Disposition: Admitted Clinical Impressions Clinical Impression: ROLO (acute kidney injury), Acute dehydration, Acute alteration in mental status, Sepsis, Multifocal pneumonia Discharge ED Provider: Rashid Jules HPI General Chief Complaint: Chest Pain Stated Complaint: CP Time Seen by Provider: 03/02/24 15:14 Mode of Arrival: EMS Source of Information: Patient Limitations: No Limitations Description of Symptoms (Recalled from ER Triage Doc. by RN): EMS reports the pts senior maintenance technician called them at the pts request. pt c/o of L sided and sternal chest pain. pt presents SOA. pt is alert to self. pt is a poor historian. pt looks extrememly malnourished. pt is 95% on RA on arrival. pts extremities are cool to the touch. pt was on 10LNR on arrival. History of Present Illness HPI narrative: Ho Gilbert is a 78-year-old male with a past medical history of COPD, hypertension, chronic venous insufficiency, tobacco use, multiple myeloma who presents to the emergency department via EMS for complaints of chest pain and altered mental status. Per EMS, patient was found by the utility maintenance worker who called 911. Patient is alert to self only and is unable to provide any further details. Patient does complain of increased anxiety and some pain throughout both sides of his chest. He denies any history of heart attack or strokes. He states that he has been walking okay and moving his extremities okay but probably has not been eating or drinking well and believes he is dehydrated. Patient notes he has chronic issues with his eyes that is unchanged from baseline. Patient denies any abdominal pain or dysuria or hematuria. Patient was put on nasal cannula by EMS but SpO2 on room air on arrival is 95%. EMS states that there was an empty bottle of amlodipine on scene, however it in 2022. Patient states that he lives alone. Related Data Home Medications ?Medication ?Instructions ?Recorded ?Confirmed hydroxyzine HCl 25 mg tablet 25 mg PO HS ITCHING 03/02/24 03/02/24 Previous Rx's ?Medication ?Instructions ?Recorded amlodipine 10 mg tablet 10 mg PO DAILY . #90 tabs 11/30/23 acetaminophen 300 mg-codeine 30 mg 1 tab PO Q6H PRN pain #120 tabs 01/24/24 tablet gabapentin 600 mg tablet 600 mg PO BID PAIN #60 tabs 01/24/24 clonazepam 0.5 mg tablet 0.5 mg PO DAILY Anxiety #30 tabs 02/16/24 torsemide 20 mg tablet 20 mg PO DAILY PRN FLUID RETENTION 02/17/24 #30 tabs Allergies Allergy/AdvReac Type Severity Reaction Status Date / Time No Known Allergies Allergy Verified 02/10/24 11:40 [facility] Disclaimer: The information contained in this section may have been updated after the patient was seen, as this information can be updated by other users. Medical History Anemia HTN (hypertension), benign COPD (chronic obstructive pulmonary disease) Anxiety Multiple myeloma Surgical History Hx of colonoscopy Hx of tonsillectomy Family History (Updated 03/02/24 @ 17:02 by Josy De La Cruz, RN) Other No significant family history Social History (Updated 03/02/24 @ 17:03 by Josy De La Cruz, RN) Smoking Status: Unknown if ever smoked alcohol intake: never substance use type: denies use current occupational status: retired Travel in the last 8 weeks: None household members: none housing: apartment Other Medical History Have you received the Flu Vaccine for this season: Yes Have you received the Pneumonia Vaccine: No ROS Obtained: Yes Systems reviewed as appropriate & no additional complaints except as documented Physical Exam General General appearance: alert, in no apparent distress and anxious Comment: Appears cachectic and malnourished, dry mucous membranes Head Head exam: atraumatic Eye Eye exam: Present EOMI and other (Patient cornea is hazy on the right) ENT ENT exam: Present normal external ear exam Neck Neck exam: Present normal inspection Chest Chest inspection: Present normal inspection and symmetric chest wall rise; Absent tenderness or rash Respiratory Respiratory exam: Present normal lung sounds bilaterally; Absent respiratory distress, wheezes or stridor Cardiovascular Cardiovascular exam: Present regular rate, normal rhythm and normal heart sounds Abdominal Exam Abdominal exam: Present soft; Absent distention or tenderness Extremities Exam Extremities exam: Present normal inspection and other (Color changes to distal bilateral lower extremities consistent with chronic venous insufficiency); Absent edema Back Exam Back exam: Present normal inspection Neurological Exam Neurological exam: Present alert, oriented X3 (Oriented to self only. Following commands appropriately. Moving all extremities with 5 out of 5 strength and sensation. Cranial nerves II through XII intact) and CN II-XII intact Psychiatric Psychiatric exam: Present other (Unable to assess secondary to GCS 14) Skin Skin exam: Present warm and dry HEART Score HEART Score HEART Score assessment performed?: Yes History (anamnesis): Slightly suspicious ECG: Normal Age: >65 years Risk factors: 1-2 risk factors Troponin: </= normal limit HEART Score: 3 Critical Care Critical Care Time Critical Care Time: Yes Attestation: On , the high probability of a clinically significant, sudden or life threatening deterioration of the following system(s) required my full and direct attention, intervention and personal management. The time I documented below is in addition to time spent performing reported procedures but includes the following listed in this critical care notation. Total Time Total Critical Care Time: 45 Medical Decision Making Markel Inquiry Pt receiving controlled substance: No Vital Signs Vital Signs: 03/02/24 15:01 03/02/24 16:00 03/02/24 16:30 Temperature 98.2 F Temperature Source Axillary Pulse Rate 90 46 L Pulse Rate [Left] 98 H Respiratory Rate 32 H Blood Pressure 109/70 L 99/65 L Blood Pressure [Right Arm] 99/62 L Blood Pressure Mean 78 Blood Pressure Mean [Right Arm] 74 Blood Pressure Source [Right Arm] Automatic Cuff Blood Pressure Position [Right Arm] Sitting 02 Sat by Pulse Oximetry 95 97 94 L Oxygen Delivery Method Room Air Room Air Room Air Lab Data Labs: Lab Results 03/02/24 15:05: WBC 5.0, RBC 3.41 L, Hgb 11.5 L, Hct 34.5 L, MCV 101.4 H, MCH 33.9 H, MCHC 33.4, RDW 16.1, Plt Count 472 H, MPV 9.2, Neut % (Auto) 78.0, Lymph % (Auto) 13.6, [place] % (Auto) 6.0, Eos % (Auto) 0.9, Baso % (Auto) 1.4, Neut # (Auto) 3.9, Lymph # (Auto) 0.7, [place] # (Auto) 0.3, Eos # (Auto) 0.1, Baso # (Auto) 0.1, Sodium 149 H, Potassium 4.2, Chloride 112 H, Carbon Dioxide 24, A nion Gap 17.2 H, BUN 90 H, Creatinine 1.80 H, Estimated Creat Clear 19, E stimated GFR 37 L, Est GFR ( Amer) 44 L, Glucose 104 H, Calcium 9.0, M agnesium 3.2 H, Total Bilirubin 1.4 H, AST 33, ALT 22, Alkaline Phosphatase 112, Total Creatine Kinase 44 L, Troponin I < 0.01, NT-Pro-B Natriuret Pep 2430 H, Total Protein 6.7, Albumin 2.6 L, Globulin 4.1 H, Albumin/Globulin Ratio 0.6 L, Salicylates < 1.0 L, Acetaminophen < 10 L 03/02/24 15:08: HIV 1&2 Antibody Rapid Nonreactive 03/02/24 15:19: VBG pH 7.43 H, VBG pCO2 32.9 L, VBG pO2 35.1, VBG HCO3 21.3 L, V BG Total CO2 22.3 L, VBG O2 Saturation 58.0, VBG Base Excess -3.0 L, VBG Lactic Acid 2.9 H, Urine Color Yellow, Urine Appearance Clear, Urine pH 5.5, Ur Specific [place] 1.020, Urine Protein Negative, Urine Glucose (UA) Negative, Urine Ketones Trace, Urine Blood Negative, Urine Nitrate Negative, Urine Bilirubin Negative, Urine Urobilinogen 1.0, Ur Leukocyte Esterase Negative, Urine RBC 3-5, Urine WBC 5-10, Ur Squamous Epith Cells Occasional, Urine Bacteria 1+, Hyaline Casts 3-5, Urine Mucus 4+ 03/02/24 15:05 03/02/24 15:05 Response Orders (Tests/Meds): ED MEDICATIONS Generic Name Dose Route Start Last Admin Trade Name Baldemar PRN Reason Stop Dose Admin Acetaminophen 650 mg 03/02/24 16:22 Acetaminophen 325mg Tab PO 04/01/24 16:21 Q4HP PRN Fever or Mild Pain (1-3) Enoxaparin Sodium 30 mg 03/03/24 09:00 Enoxaparin 40mg/0.4ml Syringe SUBCUT 04/02/24 08:59 DAILY SEBASTIEN Dextrose 1,000 mls @ 100 mls/hr 03/02/24 18:00 03/02/24 21:24 Dext 5% In Water 1000mls IV 04/01/24 17:59 100 mls/hr .Q10H SEBASTIEN Administration Piperacillin Sod/Tazobactam 50 mls @ 100 mls/hr 03/02/24 18:15 03/02/24 18:54 Sod 3.375 gm/ Sodium Chloride IV 03/12/24 18:14 100 mls/hr Q8H SEBASTIEN Administration Ondansetron HCl 4 mg 03/02/24 16:22 Ondansetron 4mg/2ml Vial IV 04/01/24 16:21 Q8HP PRN Nausea Discontinued Medications Generic Name Dose Route Start Last Admin Trade Name Freq PRN Reason Stop Dose Admin Lactated Ringer's 1,000 mls @ 999 mls/hr 03/02/24 15:12 03/02/24 15:27 Lactated Ringer's 1000 Ml Bag IV 03/02/24 16:12 Not Given .Q1H1M ONE Sodium Chloride 2,190 mls @ 1,095 mls/hr 03/02/24 15:25 03/02/24 15:35 Sod Chlor 0.9% 1000ml Bag 30 ml/kg infuse over 2 hr (2190 ml) 03/02/24 17:24 1,095 mls/hr IV Administration .Q2H ONE Ceftriaxone Sodium 2 gm/ 100 mls @ 200 mls/hr 03/02/24 16:15 03/02/24 16:12 Sodium Chloride IV 03/12/24 16:14 200 mls/hr Q24H SEBASTIEN Administration Azithromycin 500 mg/ Sodium 250 mls @ 250 mls/hr 03/02/24 16:15 03/02/24 16:27 Chloride IV 03/12/24 16:14 250 mls/hr Q24H SEBASTIEN Administration ORDERS Category Date Time Status CT head/brain wo con Stat Cat Scan 03/02/24 15:12 Completed CXR --portable [XR chest portable] Stat Exams 03/02/24 15:12 Completed Acetaminophen Stat Lab 03/02/24 15:05 Completed BNP [NT Pro Brain Natriuretic Pep.] Stat Lab 03/02/24 15:05 Completed CBC w/Auto Diff [Complete Blood Count Auto Diff] Stat Lab 03/02/24 15:05 Completed CK [Creatine Kinase] Stat Lab 03/02/24 15:05 Completed CMP [Comprehensive Metabolic Panel] Stat Lab 03/02/24 15:05 Completed HIV (1&2) Antibody Rapid Stat Lab 03/02/24 15:08 Completed Hep C Ab with Reflex to RNA Stat Lab 03/02/24 15:08 Received Magnesium Stat Lab 03/02/24 15:05 Completed Salicylate Stat Lab 03/02/24 15:05 Completed Troponin I Q3H Lab 03/02/24 18:20 Completed Troponin I Q3H Lab 03/02/24 21:23 Received Troponin I Stat Lab 03/02/24 15:05 Completed Urinalysis and Microscopic Stat Lab 03/02/24 15:19 Completed Blood Culture Stat Micro 03/02/24 15:15 Received VBG [Venous Blood Gas] Stat RT 03/02/24 15:19 Completed ECG Data Tracing #1: Attestation: I reviewed this ECG and interpreted as documented below: ECG Narrative: EKG interpreted by me personally at 1457. Normal sinus rhythm with no ST elevation or depression. There are few ectopic beats. ID interval normal at 124. QTc normal at 387. MDM Narrative Medical Decision Narrative: oH is a 78-year-old male with a past medical history of COPD, hypertension, chronic venous insufficiency, peripheral neuropathy, multiple myeloma (per chart review) who presents to the emergency department via EMS after a instrument maintenance supervisor called 911. Patient reported chest pain on arrival and with EMS. Patient is altered and only oriented to self. Patient complaining of chest pain to both sides of his chest and believes that he is dehydrated and has not been eating or drinking well. He and appears malnourished and cachectic. No wheezing, rales or rhonchi on lung exam. Patient is not requiring any oxygen at this time with SpO2 at 95%. Abdomen is soft, nontender nondistended. Patient has evidence of chronic venous insufficiency in his distal bilateral lower extremities without swelling. He has 5 out of 5 strength in all extremities and cranial nerves II through XII are intact. Sensation grossly intact throughout all extremities and no focal neurological deficits. GCS 14. Lives alone. Patient on exam, appears dehydrated with dry mucous membranes and delayed capillary refill. On arrival, patient is hypotensive with blood pressure of 99/62, pulse 98 bpm, tachypneic, afebrile and maintaining oxygen saturation at 95% on room air. Per previous records, patient is usually alert and oriented x 3. Differential diagnosis: Sepsis, urinary tract infection, pneumonia, intracranial hemorrhage, electrolyte derangement, hypoglycemia, rhabdomyolysis, among others. Patient's workup in the emergency department included: Sepsis NS fluid bolus, EKG, chest x-ray, CT head without contrast, urinalysis, blood cultures, CBC with differential, CMP, magnesium level, lactate, VBG, CK, BNP, troponin EKG did not demonstrate any NSTEMI or concerning ischemic changes. See interpretation above. Workup significant for ROLO with creatinine 1.8 and BUN 90 (appears to be prerenal), anion gap of 17.2 with elevated lactate at 2.9, mild respiratory alkalosis with pH of 7.43, pCO2 mildly low at 32.9, bicarb mildly low at 21.3. Mild hyponatremia of 149, potassium normal at 4.2, chloride elevated at 112, magnesium elevated at 3.2, total bilirubin elevated at 1.4. Liver enzymes within normal limits. Salicylates less than 1, acetaminophen less than 10. Urine with 1+ bacteria, 5-10 white blood cells, 3-5 red blood cells, negative leukocyte esterase, negative nitrates. Does not appear to have a UTI at this time. Initial troponin of less than 0.01. BNP 2430 (was 1020 as of April 2022). CBC with no leukocytosis (white blood cell count 5), hemoglobin 11.5 and hematocrit 34.5 (appear to be at baseline), platelets elevated at 472 (could be acute phase reactant versus hemoconcentration), CK normal at 44. Chest x-ray interpreted by me personally with evidence of bilateral hazy opacities concerning for multifocal pneumonia. See radiology report for further details. Will treat for community-acquired pneumonia with 2 g of IV Rocephin as well as [address] head interpreted by me personally as well and this demonstrates evidence of global volume loss but no acute intracranial hemorrhage or severely enlarged ventricles. No intracranial masses or midline shift are appreciated. Given the patient's ROLO in the setting of sepsis secondary to pneumonia and significant dehydration, we will discuss the patient's case with the hospitalist team for admission for continued IV antibiotics, rehydration. Is felt that his altered mental status is likely secondary to his infectious etiology and dehydration. I spoke with Dr. Laguna who agreed to admit the patient. Patient had good response to IV fluids with repeat blood pressure of 109/70, heart rate improving to 90 bpm. Patient already appears more alert than upon arrival.
--- NOTE | 2024-03-02 15:19 | PC.NURSE ---
resp called about vbg order
[2024-03-02 15:23] LABS: Microscopic, Urine URINE MICROSCOPIC (MICROSCOPIC)
[2024-03-02 15:24] LABS: Appearance,Urine CLEAR (Clear); Blood, Urine Negative (Negative); Color,Urine YELLOW (Yellow); Glucose,Urine (UA) Negative (Negative); Ketones,Urine TRACE (Negative); Leukocyte Esterase,Urine Negative (Negative); Nitrate,Urine Negative (Negative); PH,Urine 5.5 (5.0-8.5); Protein,Urine Negative (Negative)
[2024-03-02 15:25] LABS: Lactate Venous 2.9 mmol/L (0.4-2.0); VBG HCO3 21.3 mmol/L (23-30); VBG PCO2 32.9 mmol/L (35-51); VBG PH 7.43 mmol/L (7.31-7.41); VBG PO2 35.1 mmol/L (28-40); VBG Total CO2 22.3 mmol/L (23-27)
[2024-03-02 15:27] LABS: Bilirubin,Urine Negative (Negative)
[2024-03-02 15:32] LABS: Basophils # 0.1 K/mm3 (0-0.2); Basophils % 1.4 % (0.1-2.0); Eosinophils # 0.1 K/mm3 (0.0-0.4); Eosinophils % 0.9 % (0.1-12.0); Hematocrit 34.5 % (42.0-52.0); Hemoglobin 11.5 g/dL (14.1-18.0); Lymphocytes # 0.7 K/mm3 (0.7-4.5); Lymphocytes % 13.6 % (10-50); Mean Corpuscular HGB Conc 33.4 g/dL (31.8-35.4); Mean Corpuscular Hemoglobin 33.9 pg (27.0-31.2); Mean Corpuscular Volume 101.4 fl (80-94); Mean Platelet Volume 9.2 fl (7.4-10.4); Monocytes # 0.3 K/mm3 (0.1-1.0); Neutrophils # 3.9 K/mm3 (1.8-7.8); Platelet Count 472 K/mm3 (142-424); Red Blood Count 3.41 M/mm3 (4.60-6.20); Red Cell Distribution Width 16.1 % (11.5-17.5)
[2024-03-02 15:34] LABS: Alanine Aminotransferase 22 U/L (12-78); Albumin Level 2.6 g/dl (3.5-5.0); Albumin/Globulin Ratio 0.6 (1.1-1.8); Alkaline Phosphatase 112 U/L (38-126); Anion Gap 17.2 mEq/L (5-15); Aspartate Amino Transferase 33 U/L (17-59); Bilirubin,Total 1.4 mg/dl (0.2-1.3); Carbon Dioxide 24 mmol/L (22.0-30.0); Chloride 112 mmol/L (98-107); Creatine Kinase 44 U/L (55-170); Creatinine Clearance Estimated 19 mL/min (50-200); Estimated Glomerular Filt Rate 37 ml/min (>60); GFR (African American) 44 ML/MIN (>60); Globulin 4.1 g/dL (1.3-3.2); Glucose 104 mg/dl (74-100); Magnesium 3.2 mg/dl (1.6-2.3); Potassium 4.2 mmoL/L (3.5-5.1); Sodium 149 mmol/L (136-145); Total Protein,Serum 6.7 g/dl (6.3-8.2)
[2024-03-02 15:35] LABS: Acetaminophen < 10 ug/ml (10-30); Blood Urea Nitrogen 90 mg/dl (9-20); Salicylate < 1.0 mg/dL (2.0-20.0)
[2024-03-02] MEDS: 0.9 % SODIUM CHLORIDE 1000ML 2,190 ML 1095 ML IV (15:35)
--- NOTE | 2024-03-02 15:36 | PC.NURSE ---
CRITICAL BUN 90. PT NAME AND R/V. DR LONG NOTIFIED. NO NEW ORDERS
[2024-03-02 15:42] LABS: Bacteria,Urine 1+ /lpf; Mucus,Urine 4+ /lpf; Squamous Epithelial Cell,Urine Occasional #/hpf (0-5)
[2024-03-02 15:46] LABS: NT Pro Brain Natriuretic Pep. 2430 pg/mL (0-450)
[2024-03-02 15:51] LABS: Troponin I < 0.01 ng/ml (0.00-0.034)
[2024-03-02 15:56] LABS: HIV (1&2) Antibody Rapid NONREACTIVE (NONREACTIVE)
[2024-03-02] MEDS: CEFTRIAXONE SODIUM 2 GM in 0.9 % SODIUM CHLORIDE 100 ML IV (16:12)
--- NOTE | 2024-03-02 16:18 | PC.NURSE ---
DR LONG SPEAKING TO HOSPITALIST
[2024-03-02] MEDS: AZITHROMYCIN 500 MG in 0.9 % SODIUM CHLORIDE 250 ML 250 MG IV (16:27)
--- NOTE | 2024-03-02 16:35 | PC.NURSE ---
Report called to Hellen RED
--- NOTE | 2024-03-02 16:50 | PC.NURSE ---
pt ARRIVED TO FLOOR FROM ER VIA STRETCHER @[id number]
--- NOTE | 2024-03-02 17:42 | P.HP_ITS ---
History of Present Illness *Admission Date: 03/02/24 *Reason for visit:: Failure to thrive, acute encephalopathy, *History of present illness: Ho Gilbert is a 78-year-old male with a medical history significant for COPD, multiple myeloma, hypertension who 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 Patient at this time is a poor historian due to encephalopathy/confusion. He is able to state that he has been having on and off chest pain recently, and also endorses diarrhea and nausea/vomiting. He states he lives at home by himself and is usually able to ambulate independently. Workup in the ED significant for WBC 5.0, lactic acid 2.9, sodium 149, AGAP 17.2, BUN 90, creatinine 1.8, magnesium 3.2, BNP 2430. CT head shows extensive chronic small vessel ischemic changes. CXR suggestive of multifocal opacities/pneumonia. Case was discussed with ED provider and decision was made to admit patient for failure to thrive, ROLO, dehydration. [facility] Disclaimer: The information contained in this section may have been updated after the patient was seen, as this information can be updated by other users. Medical History Anemia HTN (hypertension), benign COPD (chronic obstructive pulmonary disease) Anxiety Multiple myeloma Surgical History Hx of colonoscopy Hx of tonsillectomy Family History (Updated 03/02/24 @ 17:02 by Josy De La Cruz RN) Other No significant family history Social History (Updated 03/02/24 @ 17:03 by Josy De La Cruz RN) Smoking Status: Unknown if ever smoked alcohol intake: never substance use type: denies use current occupational status: retired Travel in the last 8 weeks: None household members: none housing: apartment Other Medical History Have you received the Flu Vaccine for this season: Yes Have you received the Pneumonia Vaccine: Yes Meds Home Medications and Allergies Home Medications ?Medication ?Instructions ?Recorded ?Confirmed ?Type amlodipine 10 mg tablet 10 mg PO DAILY . #90 tabs 11/30/23 03/02/24 Rx acetaminophen 300 mg-codeine 30 mg 1 tab PO Q6H PRN pain #120 tabs 01/24/24 03/02/24 Rx tablet gabapentin 600 mg tablet 600 mg PO BID PAIN #60 tabs 01/24/24 03/02/24 Rx clonazepam 0.5 mg tablet 0.5 mg PO DAILY Anxiety #30 tabs 02/16/24 03/02/24 Rx torsemide 20 mg tablet 20 mg PO DAILY PRN FLUID RETENTION 02/17/24 03/02/24 Rx #30 tabs hydroxyzine HCl 25 mg tablet 25 mg PO HS ITCHING 03/02/24 03/02/24 History New Prescriptions to Start Prescriptions: Allergies Allergy/AdvReac Type Severity Reaction Status Date / Time No Known Allergies Allergy Verified 02/10/24 11:40 Exam Data for Last 24 hours Vital signs and Labs for Last 24 Hours: Temp Pulse Resp BP Pulse Ox O2 Del Method 98.4 F 60 18 99/65 L 94 L Room Air 03/02/24 16:45 03/02/24 16:45 03/02/24 16:45 03/02/24 16:45 03/02/24 16:30 03/02/24 16:45 Laboratory Results - last 24 hr 03/02/24 15:05: WBC 5.0, RBC 3.41 L, Hgb 11.5 L, Hct 34.5 L, MCV 101.4 H, MCH 33.9 H, MCHC 33.4, RDW 16.1, Plt Count 472 H, MPV 9.2, Neut % (Auto) 78.0, Lymph % (Auto) 13.6, [place] % (Auto) 6.0, Eos % (Auto) 0.9, Baso % (Auto) 1.4, Neut # (Auto) 3.9, Lymph # (Auto) 0.7, [place] # (Auto) 0.3, Eos # (Auto) 0.1, Baso # (Auto) 0.1, Sodium 149 H, Potassium 4.2, Chloride 112 H, Carbon Dioxide 24, Anion Gap 17.2 H, BUN 90 H, Creatinine 1.80 H, Estimated Creat Clear 19, Estimated GFR 37 L, Est GFR ( Amer) 44 L, Glucose 104 H, Calcium 9.0, Magnesium 3.2 H, Total Bilirubin 1.4 H, AST 33, ALT 22, Alkaline Phosphatase 112, Total Creatine Kinase 44 L, Troponin I < 0.01, NT-Pro-B Natriuret Pep 2430 H, Total Protein 6.7, Albumin 2.6 L, Globulin 4.1 H, Albumin/Globulin Ratio 0.6 L, Salicylates < 1.0 L, Acetaminophen < 10 L 03/02/24 15:08: HIV 1&2 Antibody Rapid Nonreactive 03/02/24 15:19: VBG pH 7.43 H, VBG pCO2 32.9 L, VBG pO2 35.1, VBG HCO3 21.3 L, VBG Total CO2 22.3 L, VBG O2 Saturation 58.0, VBG Base Excess -3.0 L, VBG Lactic Acid 2.9 H, Urine Color Yellow, Urine Appearance Clear, Urine pH 5.5, Ur Specific [place] 1.020, Urine Protein Negative, Urine Glucose (UA) Negative, Urine Ketones Trace, Urine Blood Negative, Urine Nitrate Negative, Urine Bilirubin Negative, Urine Urobilinogen 1.0, Ur Leukocyte Esterase Negative, Urine RBC 3-5, Urine WBC 5-10, Ur Squamous Epith Cells Occasional, Urine Bacteria 1+, Hyaline Casts 3-5, Urine Mucus 4+ I & O for Last 24 hours: Intake & Output 02/28/24 02/29/24 03/01/24 03/02/24 23:59 23:59 23:59 23:59 Weight 40.823 kg Constitutional Constitutional: no acute distress and cachectic Comments: Emaciated appearance. Pleasant. *Routine HEENT Exam Head: Present normocephalic Eye: Present EOMI and PERRL ENT: Present mucous membranes moist *Routine Neck Exam Neck: Present supple; Absent lymphadenopathy *Routine Respiratory Exam Respiratory: Present CTA bilaterally *Routine Cardiovascular Exam Cardiovascular: Present RRR *Routine Abdominal Exam Abdominal: Present soft and normoactive bowel sounds; Absent tenderness *Routine Rectal Exam Rectal:: deferred *Routine Genitalia Exam Genitalia:: deferred *Routine Extremities Exam Extremities: Absent cyanosis, clubbing or edema *Routine Skin Exam Skin: Present warm; Absent rash *Routine Neurological Exam Neurological: Present alert and oriented X3 Assessment and Plan *Assessment and plan (1) Failure to thrive: Status: Acute Category: Medical Plan Ho Gilbert is a 78-year-old male with a medical history significant for COPD, multiple myeloma, hypertension who 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 Patient at this time is a poor historian due to encephalopathy/confusion. He is able to state that he has been having on and off chest pain recently, and also endorses diarrhea and nausea/vomiting. He states he lives at home by himself and is usually able to ambulate independently. Workup in the ED significant for WBC 5.0, lactic acid 2.9, sodium 149, AGAP 17.2, BUN 90, creatinine 1.8, magnesium 3.2, BNP 2430. CT head shows extensive chronic small vessel ischemic changes. CXR suggestive of multifocal opacities/pneumonia. Case was discussed with ED provider and decision was made to admit patient for failure to thrive, ROLO, dehydration. #Failure to thrive #ROLO, dehydration #Hyperuremia #Hypernatremia #Acute metabolic encephalopathy #Severe protein malnutrition ? Patient is a poor historian at this time due to acute encephalopathy. He states he lives by himself at home. He has a very emaciated/malnourished appearance, pleasant. ? Initial sodium 149, creatinine 1.8 (baseline 1.0), BUN 90, AGAP 17.2. ? Getting 2 L bolus started by the ED. ? Maintenance fluids with D5 and 100 mL/h after that. ? Follow-up renal function, electrolytes, phosphorus. ? Cautious for refeeding syndrome. ? Nutrition consulted, pending recommendations. ? PT/OT consulted, pending recommendations. #Chest pain ? Initial troponin < 0.01. EKG did not show acute ischemic findings. BNP 2430. Patient does not look volume overloaded, rather volume depleted. ? EKG she does suggest multifocal pneumonia which may be contributing to chest pain. ? Follow-up serial troponins. EKG did not show acute ischemic findings. ? Follow-up ECHO. ? Cardiology consulted, pending further recommendations. #Sacral ulcer with cellulitis/abscess #Suspected pneumonia ? Patient has a 3 x 4 cm erythematous area draining pus and the sacrum. Tenderness to palpation. ? General Surgery consulted, pending recommendations. May benefit from I&D. ? IV Zosyn day 1/5. ? Follow-up blood, wound cultures. ? Wound care consulted, pending recommendations #Multiple myeloma ? Follows with oncology with Dr. Rivera. Recently on Revlimid and Decadron weekly. ? Resume these medications once reconciled. #COPD ? Currently stable. ? DuoNebs as needed. #Hypertension ? Resume home medications once reconciled. Full code Lovenox 30
--- NOTE | 2024-03-02 18:43 | PC.WOUNDNOTE ---
Abscess on bottom
[2024-03-02] MEDS: PIPERCILLIN/TAZO 3.375 GM in 0.9 % SODIUM CHLORIDE 50 ML IV (18:54)
[2024-03-02 18:55] LABS: Troponin I < 0.01 ng/ml (0.00-0.034)
[2024-03-02 19:26] LABS: Reflex Lactic Add Lactic Reflex
[2024-03-02 19:58] LABS: Lactic Acid Follow Up (RFLX 1) 1.8 mmol/L (0.7-2.1)
[2024-03-02] MEDS: DEXTROSE 5 % IN WATER 1,000 ML 100 ML IV (21:24)
[2024-03-02 22:03] LABS: Troponin I < 0.01 ng/ml (0.00-0.034)
[2024-03-03] VITALS (9 sets, daily range): BP systolic 94–105; BP diastolic 53–62; PULSE 70–90; RESP 16–18; TEMP 36.4–37.3; O2SAT 97–99; BMI 13.1
[2024-03-03] MEDS: PIPERCILLIN/TAZO 3.375 GM in 0.9 % SODIUM CHLORIDE 50 ML IV ×4 (02:57→21:15)
--- NOTE | 2024-03-03 04:39 | P.EN_ITS ---
<Statement entered by Kalin Laguna MD - 03/05/24 22:46> I personally examined patient and agree with PLUG OVERWRAP MACHINE TENDER's plan of care. 4:40 am problem:: Patient is extremely underweight BMI of 13, finding automatic blood pressure cuff to fit him was difficult. Blood pressure remaining above 100.. Unsure if patient is consuming any calories History of multiple myeloma. Also to note several large petechiae to both thighs. Question because patient has been on any coagulation and steroid, does not appear to be infectious in nature question , we can peripheral blood vessels. exam, patient is able to talk with me appears to be alert and oriented to himself and the situation.. Appears semisedated and talks as if he has sedation. He expressed to me at this time he is not having any pain. BMI is 13 gentleman looks extremely malnourished. plan. Vital signs appear to be adequate, patient is alert and oriented to self time and place. Have talked with nursing communication order to start a calorie count. Also done dietary consult.. Question whether a tube feeding may be needed to be placed down the nose to give this gentleman enough calories to re cover. Also noting Dr. Rivera/oncology note patient was to let him know if Revlimid came in from the specialty clinic and to let his office know. Per Dr. Whitmore's note is presently on a treatment holiday. Noted that he does get steroids on a regular basis in the past for his multiple myeloma. Nursing made me aware that the patient is in correction community, but he may be needing true long-term care placed as he has not been able to care for himself and with his significant weight loss will be requiring supervision and meals delivered to him or actual help with feeding to try to improve his weight to at least 19 BMI.
--- NOTE | 2024-03-03 06:00 | CA_ITS ---
APPROVED REPORT EXAM: Comprehensive 2D, Doppler, and color-flow Echocardiogram Water Resource Project Manager: Elvira Hernández RCS, RVS Ht: 5 ft 10 in Wt: 92lbs BSA: 1.50 BP: 97/65 mmHg Indications: Multiple myeloma, COPD, SOB, CP, Echo Enhancing Agent Comments: Extremely limited windows due to extreme body habitus with patient confusion and combativeness. 2D Dimensions IVSd 0.72 cm LVEF (Visual) 42.10 % PWd 0.63 cm EF AP4 51.60 % LVDd 4.25 cm GL Strain -14.5 % LVDs 3.38 cm Aortic Root 3.05 cm Left Atrium 1.12 cm LVOT 1.85 cm (M/F) 1.5-2.5 M-Mode Dimensions RVDd 1.48 cm (0.9-2.6) LVDd 4.25 cm (3.5-5.7) Ao Diam 3.24 cm (2.0-3.7) LVDs 2.96 cm (3.5-5.7) IVSd 0.67 cm (0.6-1.1) PWd 0.55 cm (0.6-1.1) EF (Teich) 71.20% EPSs 0.44 cm FS 33.97% EDV (Teich) 117.70 mL ESV (Teich) 33.90 mL LV Diastology E Decel Time 233 (160-240 msec) E/A Ratio 1.18 MED E' 6.9 (>= 7 cm/sec) MED A' 15.60 cm/s E'/MED E' Ratio 10.48 (<= 14) LAT E' 9.2 (>= 10 cm/sec) LAT A' 7.80 cm/s E/LAT E' Ratio 7.86 (<= 14) Aortic Valve LVOT Max 112.0 (70-110 cm/s) REBEL Index 1.19 cm2/m2 LVOT VTI 20.94 cm AoV Peak Vinay. 164.0 (50-130 cm/s) AO Mean GR. 5.40 (<5 mmHg) AO VTI 31.4 (18-25 cm) REBEL (VTI) 1.79 (2.5-4.5 cm2) Mitral Valve MV E Max Vinay. 72.0 (40-130 cm/s) MV A Velocity 61.0 (40-130 cm/s) E/A Ratio 1.18 MV Decel. Time 233 (160-240 ms) Pulmonary Valve TX End VMAX 180.0 cm/s Tricuspid Valve TR P. Velocity 279.00 cm/s RAP Estimate 10.00 mmHg RVSP 41.20 mmHg Left Ventricle The left ventricle is normal size. The left ventricular systolic function is normal. The left ventricular ejection fraction is within the normal range. There is normal left ventricular wall thickness. There is normal LV segmental wall motion. The left ventricular diastolic function is normal. LVEF is 55%. Right Ventricle The right ventricle is not very well visualized, but grossly appears at least mildly dilated with at least mild reduction in RV function. Atria The left atrium size is normal. The right atrium size is normal. The interatrial septum is not well visualized. Aortic Valve The aortic valve is mildly thickened. There is no hemodynamically significant aortic stenosis. Trace aortic regurgitation. Mitral Valve The mitral valve is mildly thickened. No evidence of mitral valve stenosis. Trace mitral regurgitation. Tricuspid Valve Tricuspid valve is grossly normal in structure and function. Mild tricuspid regurgitation. RVSP is 20-25 mmHg. Pulmonic Valve The pulmonary valve is normal in structure. Mild pulmonic regurgitation. Great Vessels The aortic root is normal in size. IVC is normal in size and collapses >50% with inspiration. Pericardium There is no pericardial effusion. Other Information Study Quality: Technically Difficult Conclusion Technically difficult study due to poor accoustic windows. Normal LV systolic function. The right ventricle is not very well visualized, but grossly appears at least mildly dilated with at least mild reduction in RV function Mild TR, mild PI. RVSP is 20-25 mmHg. Electronically signed by : Thao Hayden MD 03/03/2024 11:53:25
[2024-03-03 06:34] LABS: Basophils % 0.4 % (0.1-2.0); Eosinophils % 0.5 % (0.1-12.0); Hematocrit 31.1 % (42.0-52.0); Lymphocytes # 0.4 K/mm3 (0.7-4.5); Lymphocytes % 8.3 % (10-50); Mean Corpuscular HGB Conc 33.1 g/dL (31.8-35.4); Mean Corpuscular Hemoglobin 33.8 pg (27.0-31.2); Mean Corpuscular Volume 102.2 fl (80-94); Mean Platelet Volume 8.6 fl (7.4-10.4); Monocytes # 0.4 K/mm3 (0.1-1.0); Monocytes % 6.8 % (1.7-9.3); Neutrophils # 4.4 K/mm3 (1.8-7.8); Platelet Count 370 K/mm3 (142-424); Red Blood Count 3.04 M/mm3 (4.60-6.20); Red Cell Distribution Width 16.1 % (11.5-17.5); White Blood Count 5.2 K/mm3 (4.8-10.8)
[2024-03-03 06:37] LABS: INR 1.17 (0.9-1.1); Prothrombin Time 12.9 seconds (10.1-12.5)
[2024-03-03 06:49] LABS: Alanine Aminotransferase 20 U/L (12-78); Albumin Level 2.2 g/dl (3.5-5.0); Albumin/Globulin Ratio 0.6 (1.1-1.8); Alkaline Phosphatase 96 U/L (38-126); Anion Gap 13.1 mEq/L (5-15); Aspartate Amino Transferase 28 U/L (17-59); Bilirubin,Total 0.8 mg/dl (0.2-1.3); Blood Urea Nitrogen 58 mg/dl (9-20); Carbon Dioxide 22 mmol/L (22.0-30.0); Chloride 120 mmol/L (98-107); Creatinine Clearance Estimated 24 mL/min (50-200); Estimated Glomerular Filt Rate 45 ml/min (>60); GFR (African American) 55 ML/MIN (>60); Globulin 3.5 g/dL (1.3-3.2); Glucose 127 mg/dl (74-100); Magnesium 2.8 mg/dl (1.6-2.3); Potassium 3.1 mmoL/L (3.5-5.1); Total Protein,Serum 5.7 g/dl (6.3-8.2)
[2024-03-03 07:01] LABS: Sodium 152 mmol/L (136-145)
--- NOTE | 2024-03-03 07:02 | PC.NURSE ---
Alert to self. Incontinent of brief, purewick in place. Patient has had some sips of water through night. Bed alarm on, patient has attempted to get out of bed. Confused but pleasant. Abscess to sacrum, wound culture completed. 2L NC, O2 sat >90%.
[2024-03-03 07:18] LABS: Hemoglobin 10.1 g/dL (14.1-18.0)
[2024-03-03 07:22] LABS: Phosphorous 4.4 mg/dl (2.5-4.5)
--- OUTSIDE RECORDS SUMMARY | 2024-03-03 08:03 | XMS_ITS ---
Author Organization Unknown ALLERGIES AND ADVERSE REACTIONS No information ASSESSMENT No information CHIEF COMPLAINT No information MEDICATIONS No information OBJECTIVE DATA No information PHYSICAL EXAMINATION No information TREATMENT PLAN Planned Care Start Date Provider Encounter for Check-up [id number] [facility] PROBLEMS No information RESULTS No information REVIEW OF SYSTEMS No information SUBJECTIVE DATA No information VITAL SIGNS No information
--- OUTSIDE RECORDS SUMMARY | 2024-03-03 08:04 | XMS_ITS | Encounter Summary ---
Author Organization Healthcare Address [address] [place] [address] Care Team Providers Care Outreach Analyst Name Role Phone Unavailable Primary Care Provider Unavailabl e Encounter Details Date Type Department Care Team (Late st Contact Info) Description 10/11/2013 [facility] Vitals Encounter [facility] [address] [place] [address] Provider, MD Hernán [address] [place] [id number] Social History Tobacco Use Types Packs/Day Years Used Date Smoking Tobacco: Never Assessed Sex and Gender Information Value Date Recorded Sex Assigned at Not on file Legal Sex Male 7:30 PM EDT Gender Identity Not on file Sexual Orientation Not on file documented as of this encounter Last Filed Vital Signs Vital Sign Reading Time Taken Comments Blood Pressure - - Pulse - - Temperature - - Respiratory Rate - - Oxygen Saturation - - Inhaled Oxygen Concentration - - Weight 52.2 kg (114 lb 15.9 oz) 014 10:02 AM EDT Height 167.6 cm (5' 6 ) 10/11/2013 10:0 2 AM EDT Body Mass Index 18.56 10/11/2013 10:02 AM EDT documented in this encounter Plan of Treatment Not on file documented as of this encounter Visit Diagnoses Not on filedocumented in this encounter
--- OUTSIDE RECORDS SUMMARY | 2024-03-03 08:04 | XMS_ITS | Clinical Summary ---
Author Organization [facility] Address [address] [place] [address] Care Team Providers Care Machine Load Clerk Name Role Phone Lyndon Reed MD Primary Care Provider [phone] Immunizations Name Administration Dates Next Due Influenza, seasonal, injectable 01/17/2013 Family History Medical History Relation Name Comments Other cancer Brother 1 Lung cancer Brother 2 FH: lung cancer Melanoma Brother 3 FH: melanoma Prostate cancer Brother 4 FH: prostate cancer Melanoma Father FH: melanoma Other cancer Father Other cancer Other 1 Tuberculosis Other 2 Relation Name Status Comments Brother 1 Brother 2 Brother 3 Brother 4 Father Other 1 Other 2 Social History Tobacco Use Types Packs/Day Years Used Date Smoking Tobacco: Every Day Sex and Gender Information Value Date Recorded Sex Assigned at Not on file Legal Sex Male 7:30 PM EDT Gender Identity Not on file Sexual Orientation Not on file Last Filed Vital Signs Vital Sign Reading Time Taken Comments Blood Pressure - - Pulse - - Temperature - - Respiratory Rate - - Oxygen Saturation - - Inhaled Oxygen Concentration - - Weight 52.6 kg (116 lb 0.1 oz) 11/22/2013 10:20 AM EDT Height 167.6 cm (5' 6 ) 11/22/2013 10:20 AM EDT Body Mass Index 18.72 11/22/2013 10:20 AM EDT Plan of Treatment Not on file Care Teams Machine Load Clerk Relationship Specialty Start Date End Date Lyndon Reed MD [address] [place] [address] PCP - General 08/30/20
--- OUTSIDE RECORDS SUMMARY | 2024-03-03 08:04 | XMS_ITS | Encounter Summary ---
Author Organization Healthcare Address [address] [place] [address] Care Team Providers Care Wax Cutter Name Role Phone Unavailable Primary Care Provider Unavailabl e Encounter Details Date Type Department Care Team (Late st Contact Info) Description 11/22/2013 [facility] Vit[facility] En[facility] [address] [place] [address] Provider, MD Hernán [address] [place] [id number] Social History Tobacco Use Types Packs/Day [...] Mass Index 18.72 11/22/2013 10:20 AM EDT documented in this encounter Plan of Treatment Not on file documented as of this encounter Visit Diagnoses Not on filedocumented in this encounter
--- OUTSIDE RECORDS SUMMARY | 2024-03-03 08:04 | XMS_ITS | Encounter Summary ---
Author Organization Healthcare Address [address] [place] [address] Care Team Providers Care Formulation Scientist Name Role Phone Unavailable Primary Care Provider Unavailabl e Encounter Details Date Type Department Care Team (Late st Contact Info) Description 08/30/2013 [facility] Vitals [facility] [address] [place] [address] Provider, MD Hernán [address] [place] [id number] Social History Tobacco Use Types Packs/Day [...] - Inhaled Oxygen Concentration - - Weight 49.9 kg (110 lb 0.2 oz) 08/30/2013 3:16 P M EDT Height 167.6 cm (5' 6 ) 08/30/2013 3:16 PM EDT Body Mass Index 17.76 08/30/2013 3:16 PM EDT documented in this encounter Plan of Treatment Not on file documented as of this encounter Visit Diagnoses Not on filedocumented in this encounter
--- NOTE | 2024-03-03 08:24 | HMH.PHAINT1 ---
Pharmacy Intervention Comments: MEDICATION RECONCILIATION COMPLETED ON PATIENT USING EXTERNAL FILL HISTORY FROM PHARMACY AND LISTS FROM PCP/ONCOLOGY OFFICES. -TERRANCE BRIONESD
--- NOTE | 2024-03-03 08:54 | P.CONS_ITS ---
History of Present Illness *Admission Date: 03/02/24 *Reason for visit:: Possible sacral abscess *History of present illness: This is a 78-year-old gentleman seen in consultation with the primary service for evaluation regarding possible sacral abscess. Please see HPI forwarded from admission H&P below. Forwarded from admission H&P: Ho Gilbert is a 78-year-old male with a medical history significant for COPD, multiple myeloma, hypertension who 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 Patient at this time is a poor historian due to encephalopathy/confusion. He is able to state that he has been having on and off chest pain recently, and also endorses diarrhea and nausea/vomiting. He states he lives at home by himself and is usually able to ambulate independently. Workup in the ED significant for WBC 5.0, lactic acid 2.9, sodium 149, AGAP 17.2, BUN 90, creatinine 1.8, magnesium 3.2, BNP 2430. CT head shows extensive chronic small vessel ischemic changes. CXR suggestive of multifocal opacities/pneumonia. Case was discussed with ED provider and decision was made to admit patient for failure to thrive, ROLO, dehydration. [facility] Disclaimer: The information contained in this section may have been updated after the patient was seen, as this information can be updated by other users. Medical History Anemia HTN (hypertension), benign COPD (chronic obstructive pulmonary disease) Anxiety Multiple myeloma Surgical History Hx of colonoscopy Hx of tonsillectomy Family History (Updated 03/02/24 @ 17:02 by Josy De La Cruz, TEOFILO) No significant family history Social History (Updated 03/02/24 @ 17:03 by Josy De La Cruz RN) Smoking Status: Unknown if ever smoked alcohol intake: never substance use type: denies use current occupational status: retired Travel in the last 8 weeks: None household members: none housing: apartment Meds Home Medications and Allergies Home Medications ?Medication ?Instructions ?Recorded ?Confirmed ?Type acetaminophen 300 mg-codeine 30 mg 1 tab PO Q6H PRN pain #120 tabs 01/24/24 03/02/24 Rx tablet gabapentin 600 mg tablet 600 mg PO BID PAIN #60 tabs 01/24/24 03/02/24 Rx clonazepam 0.5 mg tablet 0.5 mg PO DAILY Anxiety #30 tabs 02/16/24 03/02/24 Rx torsemide 20 mg tablet 20 mg PO DAILY PRN FLUID RETENTION 02/17/24 03/02/24 Rx #30 tabs hydroxyzine HCl 25 mg tablet 25 mg PO HSP PRN Itching 03/02/24 03/03/24 History amlodipine 10 mg tablet 10 mg PO DAILY 03/03/24 03/03/24 History lenalidomide 10 mg capsule 10 mg PO DIRECTED 03/03/24 03/03/24 History (Revlimid) New Prescriptions to Start Prescriptions: Allergies Allergy/AdvReac Type Severity Reaction Status Date / Time No Known Allergies Allergy Verified 02/10/24 11:40 Exam (Inpt) Vital signs and Labs for Last 24 Hours: Temp Pulse Resp BP Pulse Ox O2 Del Method O2 Flow Rate 97.8 F 85 18 105/62 L 97 Nasal Cannula 2 03/03/24 08:00 03/03/24 08:00 03/03/24 08:00 03/03/24 08:00 03/03/24 08:00 03/03/24 08:00 03/03/24 06:59 Laboratory Results - last 24 hr 03/02/24 15:05: WBC 5.0, RBC 3.41 L, Hgb 11.5 L, Hct 34.5 L, MCV 101.4 H, MCH 33.9 H, MCHC 33.4, RDW 16.1, Plt Count 472 H, MPV 9.2, Neut % (Auto) 78.0, Lymph % (Auto) 13.6, Morrison % (Auto) 6.0, Eos % (Auto) 0.9, Baso % (Auto) 1.4, Neut # (Auto) 3.9, Lymph # (Auto) 0.7, Morrison # (Auto) 0.3, Eos # (Auto) 0.1, Baso # (Auto) 0.1, Sodium 149 H, Potassium 4.2, Chloride 112 H, Carbon Dioxide 24, A nion Gap 17.2 H, BUN 90 H, Creatinine 1.80 H, Estimated Creat Clear 19, E stimated GFR 37 L, Est GFR ( Amer) 44 L, Glucose 104 H, Calcium 9.0, M agnesium 3.2 H, Total Bilirubin 1.4 H, AST 33, ALT 22, Alkaline Phosphatase 112, Total Creatine Kinase 44 L, Troponin I < 0.01, NT-Pro-B Natriuret Pep 2430 H, Total Protein 6.7, Albumin 2.6 L, Globulin 4.1 H, Albumin/Globulin Ratio 0.6 L, Salicylates < 1.0 L, Acetaminophen < 10 L 03/02/24 15:08: HIV 1&2 Antibody Rapid Nonreactive 03/02/24 15:19: VBG pH 7.43 H, VBG pCO2 32.9 L, VBG pO2 35.1, VBG HCO3 21.3 L, V BG Total CO2 22.3 L, VBG O2 Saturation 58.0, VBG Base Excess -3.0 L, VBG Lactic Acid 2.9 H, Urine Color Yellow, Urine Appearance Clear, Urine pH 5.5, Ur Specific Buxton 1.020, Urine Protein Negative, Urine Glucose (UA) Negative, Urine Ketones Trace, Urine Blood Negative, Urine Nitrate Negative, Urine Bilirubin Negative, Urine Urobilinogen 1.0, Ur Leukocyte Esterase Negative, Urine RBC 3-5, Urine WBC 5-10, Ur Squamous Epith Cells Occasional, Urine Bacteria 1+, Hyaline Casts 3-5, Urine Mucus 4+ 03/02/24 18:20: Troponin I < 0.01 03/02/24 19:41: Lactate 1.8 03/02/24 21:23: Troponin I < 0.01 03/03/24 05:41: WBC 5.2, RBC 3.04 L, Hgb 10.1 L D, Hct 31.1 L, MCV 102.2 H, MCH 33.8 H, MCHC 33.1, RDW 16.1, Plt Count 370, MPV 8.6, Neut % (Auto) 84.0 H, Lymph % (Auto) 8.3 L, Morrison % (Auto) 6.8, Eos % (Auto) 0.5, Baso % (Auto) 0.4, Neut # (Auto) 4.4, Lymph # (Auto) 0.4 L, Morrison # (Auto) 0.4, Eos # (Auto) 0.0, Baso # (Auto) 0.0, PT 12.9 H, INR 1.17 H, Sodium 152 H*, Potassium 3.1 L D, Chloride 120 H, Carbon Dioxide 22, Anion Gap 13.1, BUN 58 H D, Creatinine 1.50 H, Estimated Creat Clear 24, Estimated GFR 45 L, Est GFR ( Amer) 55 L D, G lucose 127 H D, Calcium 8.0 L, Phosphorus 4.4, Magnesium 2.8 H D, Total Bilirubin 0.8, AST 28, ALT 20, Alkaline Phosphatase 96, Total Protein 5.7 L, A lbumin 2.2 L D, Globulin 3.5 H, Albumin/Globulin Ratio 0.6 L I & O for Labs for Last 24 Hours: Intake & Output 02/29/24 03/01/24 03/02/24 03/03/24 11:59 11:59 11:59 11:59 Intake Total 870 / 870 Output Total 550 / 550 Balance 320 / 320 Weight 92 lb 1 oz Microbiology Reports for the Last 24 Hours: Microbiology 03/02/24 23:55 Buttock Gram Stain - Preliminary Constitutional: chronically ill appearing Respiratory: Absent respiratory distress Cardiac: Absent Tachycardia Comment:: small punctum between surgical margin and anal margin. Caudal projection noted within subcutaneous tissue. Minimal surrounding blush. No significant induration. No obvious pockets of purulence. Results Labs 03/03/24 05:41 03/03/24 05:41 Labs: Laboratory Results - last 24 hr 03/02/24 15:05: WBC 5.0, RBC 3.41 L, Hgb 11.5 L, Hct 34.5 L, MCV 101.4 H, MCH 33.9 H, MCHC 33.4, RDW 16.1, Plt Count 472 H, MPV 9.2, Neut % (Auto) 78.0, Lymph % (Auto) 13.6, Morrison % (Auto) 6.0, Eos % (Auto) 0.9, Baso % (Auto) 1.4, Neut # (Auto) 3.9, Lymph # (Auto) 0.7, Morrison # (Auto) 0.3, Eos # (Auto) 0.1, Baso # (Auto) 0.1, Sodium 149 H, Potassium 4.2, Chloride 112 H, Carbon Dioxide 24, A nion Gap 17.2 H, BUN 90 H, Creatinine 1.80 H, Estimated Creat Clear 19, E stimated GFR 37 L, Est GFR ( Amer) 44 L, Glucose 104 H, Calcium 9.0, M agnesium 3.2 H, Total Bilirubin 1.4 H, AST 33, ALT 22, Alkaline Phosphatase 112, Total Creatine Kinase 44 L, Troponin I < 0.01, NT-Pro-B Natriuret Pep 2430 H, Total Protein 6.7, Albumin 2.6 L, Globulin 4.1 H, Albumin/Globulin Ratio 0.6 L, Salicylates < 1.0 L, Acetaminophen < 10 L 03/02/24 15:08: HIV 1&2 Antibody Rapid Nonreactive 03/02/24 15:19: VBG pH 7.43 H, VBG pCO2 32.9 L, VBG pO2 35.1, VBG HCO3 21.3 L, V BG Total CO2 22.3 L, VBG O2 Saturation 58.0, VBG Base Excess -3.0 L, VBG Lactic Acid 2.9 H, Urine Color Yellow, Urine Appearance Clear, Urine pH 5.5, Ur Specific Buxton 1.020, Urine Protein Negative, Urine Glucose (UA) Negative, Urine Ketones Trace, Urine Blood Negative, Urine Nitrate Negative, Urine Bilirubin Negative, Urine Urobilinogen 1.0, Ur Leukocyte Esterase Negative, Urine RBC 3-5, Urine WBC 5-10, Ur Squamous Epith Cells Occasional, Urine Bacteria 1+, Hyaline Casts 3-5, Urine Mucus 4+ 03/02/24 18:20: Troponin I < 0.01 03/02/24 19:41: Lactate 1.8 03/02/24 21:23: Troponin I < 0.01 03/03/24 05:41: WBC 5.2, RBC 3.04 L, Hgb 10.1 L D, Hct 31.1 L, MCV 102.2 H, MCH 33.8 H, MCHC 33.1, RDW 16.1, Plt Count 370, MPV 8.6, Neut % (Auto) 84.0 H, Lymph % (Auto) 8.3 L, Morrison % (Auto) 6.8, Eos % (Auto) 0.5, Baso % (Auto) 0.4, Neut # (Auto) 4.4, Lymph # (Auto) 0.4 L, Morrison # (Auto) 0.4, Eos # (Auto) 0.0, Baso # (Auto) 0.0, PT 12.9 H, INR 1.17 H, Sodium 152 H*, Potassium 3.1 L D, Chloride 120 H, Carbon Dioxide 22, Anion Gap 13.1, BUN 58 H D, Creatinine 1.50 H, Estimated Creat Clear 24, Estimated GFR 45 L, Est GFR ( Amer) 55 L D, G lucose 127 H D, Calcium 8.0 L, Phosphorus 4.4, Magnesium 2.8 H D, Total Bilirubin 0.8, AST 28, ALT 20, Alkaline Phosphatase 96, Total Protein 5.7 L, A lbumin 2.2 L D, Globulin 3.5 H, Albumin/Globulin Ratio 0.6 L Assessment and Plan *Assessment and plan (1) Abscess: Problem Comment: Small superficial abscess between sacral margin and anal margin. Spontaneous drainage noted. Status: Acute Category: Medical Code(s): L02.91 - Cutaneous abscess, unspecified Plan: Dry gauze packing and at least daily dressing changes (2) Failure to thrive: Status: Acute Qualifiers: Failure to thrive age range: in adult Qualified Code(s): R62.7 - Adult failure to thrive Category: Medical (3) Multifocal pneumonia: Status: Acute Category: Medical Code(s): J18.9 - Pneumonia, unspecified organism (4) Sepsis: Status: Acute Qualifiers: Sepsis type: sepsis due to unspecified organism Sepsis acute organ dysfunction status: unspecified Qualified Code(s): A41.9 - Sepsis, unspecified organism Category: Medical Code(s): A41.9 - Sepsis, unspecified organism
[2024-03-03] MEDS: DEXTROSE 5 % IN WATER 500 ML IV (08:55)
[2024-03-03] MEDS: ENOXAPARIN 30MG/0.3ML SYRINGE 30 MG SUBCUT (08:58)
[2024-03-03 09:22] LABS: HCV Ab Non Reactive (Non Reactive)
[2024-03-03] MEDS: SODIUM CHLORIDE 3% 15ML NEB 3 ML IH (09:30)
--- NOTE | 2024-03-03 09:33 | HMH.PTEV ---
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 Patient at this time is a poor historian due to encephalopathy/confusion. He is able to state that he has been having on and off chest pain recently, and also endorses diarrhea and nausea/ vomiting. He states he lives at home by himself and is usually able to ambulate independently. Workup in the ED significant for WBC 5.0, lactic acid 2.9, sodium 149, AGAP 17.2, BUN 90, creatinine 1.8, magnesium 3.2, BNP 2430. CT head shows extensive chronic small vessel ischemic changes. CXR suggestive of multifocal opacities/pneumonia . Case was discussed with ED provider and decision was made to admit patient for failure to thrive, ROLO, dehydration. Subjective Subjective Pt difficult to understand at times. Pt initially with multiple requests for ice- cream. Pt agreeable to PT evaluation. Pt able to answer most history questions. Pt lives alone in a single story home. Pt was not driving prior . Pt was IND with mobility using a cane. New diagnosis of cancer in past 12 No months? Rehab PT IP Eval Objective Appearance Patient Behavior Confused Patient Orientation Person,Birthday Difficulty following instructions mild Speech Pattern Mumbled Ambulation Patient Able to Ambulate No Balance Ability to Arise Unable Sitting Balance Leans or slides in chair Transfers Bed Transfer Ability Moderate x 1 (50% assist) Rehab PT IP prob,goals,plan Problems Date of Evaluation: 03/03/24 PT IP Problems Bed Mobility,Transfers,Gait, Balance,Safety Rehab Potential Rehab Potential Good Plan PT Intervention Plan Bed Mobility,Transfers,Gait, Balance,Self care,Safety, Therapeutic Exercise Other Intervention Plan 1-2 times PT Plan Frequency Daily Duration LOS Discharge Goals Bed Transfer Ability Minimal x 1 (25% assist) Sit to Stand Chair Transfer Ability Moderate x 2 (50% assist) Discharge Plan PT Discharge Plan Initial physical therapy evaluation performed. Patient presents below baseline at this time in functional mobility, transfers, and strength. Pt only able to demo supine<> sit with Mod A d/t poor sitting endurance and impaired strength. Pt not safe to return home at this time d /t current level of functional mobility. PT recommending short-term rehabilitation stay upon d/c from [facility]. Pt would benefit from skilled PT while at [facility] to prevent further functional decline and maximize safety with mobility. Eval Complexity Eval Charge Codes 90966 - High Complexity PHYSICIAN CERTIFICATION: I certify the specified therapy services for Ho Gilbert are required, authorized, and reviewed every 30 days.
--- NOTE | 2024-03-03 09:49 | HMH.OTEV ---
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 Patient at this time is a poor historian due to encephalopathy/confusion. He is able to state that he has been having on and off chest pain recently, and also endorses diarrhea and nausea/ vomiting. He states he lives at home by himself and is usually able to ambulate independently. Workup in the ED significant for WBC 5.0, lactic acid 2.9, sodium 149, AGAP 17.2, BUN 90, creatinine 1.8, magnesium 3.2, BNP 2430. CT head shows extensive chronic small vessel ischemic changes. CXR suggestive of multifocal opacities/pneumonia . Case was discussed with ED provider and decision was made to admit patient for failure to thrive, ROLO, dehydration. Patient lives alone in [facility] apartments with brother who suppose to check on throughout the week. Patient reported that brother has not checked on him lately. Patient was requiring assistance to complete simple ADLs and meals preps while at home. However family has not been assisting with resulting in patient's health decline. Subjective I need to lay back down. Instructed Patient on proper hand and foot placement to complete bed mobility from supine->sit @ EOB requiring Mod A. Patient required SBA to sit @ EOB. Instructed Patient to complete sit->stand transfer with usage of RW. However Patient requested to lay back in bed due to feeling weak requiring Mod A. Objective Patient Orientation Person Right Upper Extremity Gross ROM WNL Left Upper Extremity Gross ROM WNL Bed Mobility bed mobility - supine/sit Assist Level Moderate x 1 (50% assist) Lower Body Dressing Ability Unable/dependent Upper Body Dressing Ability Unable/dependent Rehab OT IP prob,goals,plan Problems Date of Evaluation: 03/03/24 OT IP Problems Bed Mobility,Transfers,Balance ,Self care,Safety Rehab Potential Rehab Potential Good Equipment Needs Assistive Devices Standard Walker Plan OT intervention Plan Bed Mobility,Transfers,Balance ,Self care,Safety,Therapeutic Exercise OT Plan Frequency Daily Duration LOS Discharge Goals Bed Mobility Ability Assistance x1 Discharge Plan OT Discharge Plan Patient is currently incontinent of bladder and bowel mgt tr with needing TD for leidy hygiene. Patient refused to stand during initial evaluation after max encouragement. Patient requested to lay back in bed after sitting @ EOB ~1 min. Will attempt later this date to encourage patient to participate in fx'l mobility. Patient will continue skilled OT Services at this time. Patient vocalized that family is not assisting him at home with simple ADLs and housekeeping tasks. At this time, recommend placement after medical d/c from hospital. Patient is requiring increase assistance to complete toileting and drsg task at this time. Eval Complexity Eval Charge Codes 02353 - Low Complexity PHYSICIAN CERTIFICATION: I certify the specified therapy services for Ho Gilbert are required, authorized, and reviewed every 30 days.
--- NOTE | 2024-03-03 09:51 | DIET.NUTRFU ---
Addendum entered by Yady Castro RD, LD 03/03/24 14:38: WATERPROOF BAG CUTTING MACHINE OPERATOR saw for lunch, he consumed mashed potatoes and couple bites of pudding which both had the protein powder added. He refused to drink the ensure shake- will continue to offer for additional calories and protein. WATERPROOF BAG CUTTING MACHINE OPERATOR changed to ground meats and spis between bites. He does have a tendency to pocket in front, assistance for meals is recommended Original Note: Provider consulted for SPCM, patient has low BMI of 13 and has lost 18# since 02/09 his last primary appt. He sees Derek as a primary doctor who indicated his appetite was decent in January. Also say Dr Whitmore on 02/09 and was started on Revlimid which can cause decrease in appetite, ordered Revlimid 15 mg p.o. daily for 21 days and 7 days off on 02/09 for tx of Multiple myeloma. Patient lives alone, was able to answer simple questions about diet. He seemed unaware or bothered by weight loss. RD was called this AM after patient was observed choking on eggs. He does not have teeth and does not own dentures. Nursing reported issues with pills- pocketing and coughing on liquids. Will order speech eval, spoke to WATERPROOF BAG CUTTING MACHINE OPERATOR on phone about bedside trail with lunch. Downgraded to chopped for lunch, continue high protein foods by adding protein pwd to mashed potatoes/pudding and Ensure milkshakes. He said he would try strawberry. 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 Will continue to follow WATERPROOF BAG CUTTING MACHINE OPERATOR recommendations.
--- NOTE | 2024-03-03 10:07 | SW/DCPLANNER ---
MD spoke w/ patient this AM regarding plans once medically stable for discharge. PT/OT evaluated patient and recommended placement at time of discharge. MD attempted to speak w/ patient regarding cancer dx and continuing treatment vs comfort care. Patient was not able to give a direct response. I did attempt to contact patient's brother regarding situation: no answer at this time VM left. I will continue to follow up w/ MD, patient and family.
[2024-03-03] MEDS: DEXTROSE 5 % IN WATER 1,000 ML 150 ML IV (10:15)
--- NOTE | 2024-03-03 10:28 | EXP.CARD.CON ---
History of Present Illness History of Present Illness Consult date: 03/03/24 Requesting physician: Kalin Laguna Consult reason: chest pain Chief complaint: CP History of present illness: This is a 78-year-old gentleman who presented to the hospital with chest pain and shortness of breath. The patient is a very poor historian secondary to encephalopathy and confusion. He states that he has been having chest pain off and on recently. It is in the left side of his chest. It does not radiate. He also reports recently having nausea, vomiting and diarrhea. The patient reports that he does live at home by himself and usually is able to take care of himself. He provides very little past medical history as well. On review of his chart, the patient does have a history of multiple myeloma and he is currently on a treatment vacation. He also has a history of hypertension and COPD. The patient is very cachectic and has failure to thrive. [facility] Disclaimer: The information contained in this section may have been updated after the patient was seen, as this information can be updated by other users. Medical History (Updated 03/03/24 @ 10:33 by Vianey Miguel APRN) Multifocal pneumonia Sepsis Acute alteration in mental status Acute dehydration ROLO (acute kidney injury) Hypertension Anemia HTN (hypertension), benign COPD (chronic obstructive pulmonary disease) Anxiety Multiple myeloma Surgical History Hx of colonoscopy Hx of tonsillectomy Family History (Updated 03/02/24 @ 17:02 by Josy De La Cruz RN) Other No significant family history Social History (Updated 03/02/24 @ 17:03 by Josy De La Cruz RN) Smoking Status: Unknown if ever smoked alcohol intake: never substance use type: denies use current occupational status: retired Travel in the last 8 weeks: None household members: none housing: apartment Exam Data for Last 24 hours Vital signs and Labs for Last 24 Hours: Temp Pulse Resp BP Pulse Ox O2 Del Method O2 Flow Rate 97.8 F 80 17 105/62 L 97 Nasal Cannula 2 03/03/24 08:00 03/03/24 09:30 03/03/24 09:30 03/03/24 08:00 03/03/24 08:00 03/03/24 08:00 03/03/24 08:00 Laboratory Results - last 24 hr 03/02/24 15:05: WBC 5.0, RBC 3.41 L, Hgb 11.5 L, Hct 34.5 L, MCV 101.4 H, MCH 33.9 H, MCHC 33.4, RDW 16.1, Plt Count 472 H, MPV 9.2, Neut % (Auto) 78.0, Lymph % (Auto) 13.6, [place] % (Auto) 6.0, Eos % (Auto) 0.9, Baso % (Auto) 1.4, Neut # (Auto) 3.9, Lymph # (Auto) 0.7, [place] # (Auto) 0.3, Eos # (Auto) 0.1, Baso # (Auto) 0.1, Sodium 149 H, Potassium 4.2, Chloride 112 H, Carbon Dioxide 24, Anion Gap 17.2 H, BUN 90 H, Creatinine 1.80 H, Estimated Creat Clear 19, Estimated GFR 37 L, Est GFR ( Amer) 44 L, Glucose 104 H, Calcium 9.0, Magnesium 3.2 H, Total Bilirubin 1.4 H, AST 33, ALT 22, Alkaline Phosphatase 112, Total Creatine Kinase 44 L, Troponin I < 0.01, NT-Pro-B Natriuret Pep 2430 H, Total Protein 6.7, Albumin 2.6 L, Globulin 4.1 H, Albumin/Globulin Ratio 0.6 L, Salicylates < 1.0 L, Acetaminophen < 10 L 03/02/24 15:08: Hepatitis C Antibody Non reactive, HIV 1&2 Antibody Rapid Nonreactive 03/02/24 15:19: VBG pH 7.43 H, VBG pCO2 32.9 L, VBG pO2 35.1, VBG HCO3 21.3 L, VBG Total CO2 22.3 L, VBG O2 Saturation 58.0, VBG Base Excess -3.0 L, VBG Lactic Acid 2.9 H, Urine Color Yellow, Urine Appearance Clear, Urine pH 5.5, Ur Specific [place] 1.020, Urine Protein Negative, Urine Glucose (UA) Negative, Urine Ketones Trace, Urine Blood Negative, Urine Nitrate Negative, Urine Bilirubin Negative, Urine Urobilinogen 1.0, Ur Leukocyte Esterase Negative, Urine RBC 3-5, Urine WBC 5-10, Ur Squamous Epith Cells Occasional, Urine Bacteria 1+, Hyaline Casts 3-5, Urine Mucus 4+ 03/02/24 18:20: Troponin I < 0.01 03/02/24 19:41: Lactate 1.8 03/02/24 21:23: Troponin I < 0.01 03/03/24 05:41: WBC 5.2, RBC 3.04 L, Hgb 10.1 L D, Hct 31.1 L, MCV 102.2 H, MCH 33.8 H, MCHC 33.1, RDW 16.1, Plt Count 370, MPV 8.6, Neut % (Auto) 84.0 H, Lymph % (Auto) 8.3 L, [place] % (Auto) 6.8, Eos % (Auto) 0.5, Baso % (Auto) 0.4, Neut # (Auto) 4.4, Lymph # (Auto) 0.4 L, [place] # (Auto) 0.4, Eos # (Auto) 0.0, Baso # (Auto) 0.0, PT 12.9 H, INR 1.17 H, Sodium 152 H*, Potassium 3.1 L D, Chloride 120 H, Carbon Dioxide 22, Anion Gap 13.1, BUN 58 H D, Creatinine 1.50 H, Estimated Creat Clear 24, Estimated GFR 45 L, Est GFR ( Amer) 55 L D, Glucose 127 H D, Calcium 8.0 L, Phosphorus 4.4, Magnesium 2.8 H D, Total Bilirubin 0.8, AST 28, ALT 20, Alkaline Phosphatase 96, Total Protein 5.7 L, Albumin 2.2 L D, Globulin 3.5 H, Albumin/Globulin Ratio 0.6 L I & O for Last 24 hours: Intake & Output 02/29/24 03/01/24 03/02/24 03/03/24 23:59 23:59 23:59 23:59 Intake Total 870 / 870 Output Total 550 / 550 Balance 320 / 320 Weight 91 lb 3 oz 92 lb 0.688 oz Microbiology Reports for the Last 24 Hours: Microbiology 03/02/24 23:55 Buttock Gram Stain - Preliminary Constitutional Constitutional: no acute distress, thin, cachectic and chronically ill appearing *Routine HEENT Exam Head: Present normocephalic and atraumatic ENT: Present mucous membranes moist *Routine Neck Exam Neck: Present supple, full ROM and normal carotid upstroke; Absent JVD, carotid bruit or lymphadenopathy *Routine Respiratory Exam Respiratory: Present CTA bilaterally, normal respiratory effort, able to speak in complete sentences and symmetric chest movement *Routine Cardiovascular Exam Cardiovascular: Present RRR, Normal S1 and Normal S2; Absent murmur or gallop *Routine Abdominal Exam Abdominal: Present soft and normoactive bowel sounds; Absent tenderness, distended or organomegaly *Routine Extremities Exam Extremities: Present full ROM, pulses intact and normal capillary refill; Absent cyanosis, clubbing or edema *Routine Skin Exam Skin: Present intact and warm; Absent erythema *Routine Neurological Exam Neurological: Present alert, oriented X3 and CN II-XII intact; Absent sensory deficit or motor deficit Routine Psychiatric Exam Psychiatric: Present normal affect Meds Home Medications and Allergies Home Medications ?Medication ?Instructions ?Recorded ?Confirmed ?Type acetaminophen 300 mg-codeine 30 mg 1 tab PO Q6H PRN pain #120 tabs 01/24/24 03/02/24 Rx tablet gabapentin 600 mg tablet 600 mg PO BID PAIN #60 tabs 01/24/24 03/02/24 Rx clonazepam 0.5 mg tablet 0.5 mg PO DAILY Anxiety #30 tabs 02/16/24 03/02/24 Rx torsemide 20 mg tablet 20 mg PO DAILY PRN FLUID RETENTION 02/17/24 03/02/24 Rx #30 tabs hydroxyzine HCl 25 mg tablet 25 mg PO HSP PRN Itching 03/02/24 03/03/24 History amlodipine 10 mg tablet 10 mg PO DAILY 03/03/24 03/03/24 History lenalidomide 10 mg capsule 10 mg PO DIRECTED 03/03/24 03/03/24 History (Revlimid) New Prescriptions to Start Prescriptions: Allergies Allergy/AdvReac Type Severity Reaction Status Date / Time No Known Allergies Allergy Verified 02/10/24 11:40 Assessment and Plan *Assessment and plan (1) Multifocal pneumonia: Status: Acute Category: Medical Code(s): J18.9 - Pneumonia, unspecified organism (2) Failure to thrive: Status: Acute Qualifiers: Failure to thrive age range: in adult Qualified Code(s): R62.7 - Adult failure to thrive Category: Medical (3) Sepsis: Status: Acute Qualifiers: Sepsis acute organ dysfunction status: unspecified Sepsis type: sepsis due to unspecified organism Qualified Code(s): A41.9 - Sepsis, unspecified organism Category: Medical Code(s): A41.9 - Sepsis, unspecified organism (4) Acute alteration in mental status: Status: Acute Category: Medical Code(s): R41.82 - Altered mental status, unspecified (5) Acute dehydration: Status: Acute Category: Medical Code(s): E86.0 - Dehydration (6) Hypertension: Status: Chronic Qualifiers: Hypertension type: primary hypertension Qualified Code(s): I10 - Essential (primary) hypertension Category: Medical Code(s): I10 - Essential (primary) hypertension (7) COPD (chronic obstructive pulmonary disease): Status: Chronic Qualifiers: COPD type: unspecified COPD Qualified Code(s): J44.9 - Chronic obstructive pulmonary disease, unspecified Category: Medical Code(s): J44.9 - Chronic obstructive pulmonary disease, unspecified (8) Multiple myeloma: Status: Acute Qualifiers: Multiple myeloma remission status: unspecified Qualified Code(s): C90.00 - Multiple myeloma not having achieved remission Category: Medical Code(s): C90.00 - Multiple myeloma not having achieved remission (9) Recent weight loss: Status: Acute Category: Medical Code(s): R63.4 - Abnormal weight loss Plan Plan: 1. The patient was admitted to the hospital with failure to thrive, acute encephalopathy and multifocal pneumonia. The patient is getting IV antibiotics. Will defer to the hospitalist. Recommend pulmonology consult. 2. The patient does have a history of multiple myeloma and he is currently on a treatment holiday per his last oncology note. 3. Cardiology was consulted because he does have an elevated BNP. Will obtain an echocardiogram to evaluate his LV function. However, his BNP is most likely elevated because of his multiple myeloma. The patient does not appear to be fluid overloaded. No plans for diuresis at this time. 4. The patient was having chest pain which is most likely from his multifocal pneumonia. He ruled out for an [place]. No plans for invasive left cardiac catheterization at this time. 5. His blood pressure is acceptable. 6. His LDL goal is less than 100. 7. The patient's creatinine is elevated consistent with dehydration. He is getting fluids. 8. Further recommendations will be made pending the patient's response to treatment and the results of his echocardiogram today. Thank you for the opportunity to help participate in the care of this patient. All recommendations and orders are per Dr. Hayden.
--- NOTE | 2024-03-03 10:28 | HMH.PTWOUND ---
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 He presents on admission with area of redness on the sacrum with a small wound opening noted. He is a difficult historian, but appears to live alone in a small apt and has been having difficulty caring for himself for some time. Wound Sacrum Wound Type Pressure Ulcer Is This a Chronic Wound Yes Wound Staging Stage II Query Text:Stage I - Unbroken, red skin, no blanching. Stage II - Skin broken, superficial skin loss involving epidermis alone or also dermis. Partial loss of skin layers. Stage III - Pressure area involves epidermis, dermis and subcutaneous tissue, full thickness skin loss. Stage IV - Pressure area involves epidermis, subcutaneous tissue, bone and other supportive tissue. Full thickness skin loss with extensive destruction of underlying tissue and structures. Wound Length (cm) 0.2 Wound Width (cm) 0.2 Wound Depth (cm) 0.1 Wound Bed Appearance Beefy Red Undermining Position 5-7 o'clock Undermining Depth (cm) 1.5 Surrounding Tissue Appearance [place] Wound Drainage Description Sanguineous Drainage Amount Small Wound Topical Solution/Irrigant Saline Irrigant Packing Type Gauze Pads Primary Dressing Composite Comment bordered foam Wound Debridement Method Forceps,Gauze,Mechanical Wound Debridement Amount of Tissue None Removed Dressing Change Patient Tolerance Tolerated Well Plan/Recommendation Comment [facility] staff to change the current dressing above once daily as needed. RN and general surgeon were present for the above treatment and agree to this plan. Will follow as needed to assist [facility] staff for dressing changes. Eval Complexity Eval Charge Codes 35290 - High Complexity PHYSICIAN CERTIFICATION: I certify the specified therapy services for Ho Gilbert are required, authorized, and reviewed every 30 days.
--- NOTE | 2024-03-03 14:09 | SW/DCPLANNER ---
Addendum entered by Aleja Leon 03/06/24 09:40: [facility] is unable to accept this patient for today. Due to patient being medically stable for discharge and no facility preference information was faxed to Sherie [facility]/ [facility]. Sherie stated that she can accept patient today [facility] level of care w/ Hospice to admit once he admits at their facility. I will update patient, family and MD. Addendum entered by Aleja Leon 03/03/24 15:48: [facility] is interested in patient at this time. Nidia goodwin/ Hospice will be at bedside to evaluate patient today. Original Note: I spoke w/ this patient, brother, sister in law and MD this afternoon. Patient is currently agreeable to LTC and willing to speak w/ Hospice services. Patient's brother is also agreeable w/ this plan. Patient information has been faxed to [facility]. I will follow up once information is reviewed. Discharge date is unknown at this time.
[2024-03-03 14:14] LABS: Albumin Level 2.4 g/dl (3.5-5.0); Chloride 113 mmol/L (98-107); Sodium 146 mmol/L (136-145)
[2024-03-03 14:15] LABS: Potassium 3.2 mmoL/L (3.5-5.1)
[2024-03-03 14:17] LABS: Alanine Aminotransferase 24 U/L (12-78); Anion Gap 12.2 mEq/L (5-15); Aspartate Amino Transferase 34 U/L (17-59); Bilirubin,Total 0.8 mg/dl (0.2-1.3); Blood Urea Nitrogen 50 mg/dl (9-20); Carbon Dioxide 24 mmol/L (22.0-30.0); Creatinine Clearance Estimated 29 mL/min (50-200); Estimated Glomerular Filt Rate 58 ml/min (>60); GFR (African American) 71 ML/MIN (>60)
[2024-03-03 14:18] LABS: Albumin/Globulin Ratio 0.6 (1.1-1.8); Alkaline Phosphatase 90 U/L (38-126); Calcium 8.2 mg/dl (8.4-10.2); Glucose 145 mg/dl (74-100); Total Protein,Serum 6.4 g/dl (6.3-8.2)
--- NOTE | 2024-03-03 14:39 | EXP.PN ---
Subjective *Date: 03/03/24 *Time: 14:39 Interval history: Able to have somewhat of a conversation, but does mumble incoherently and is tangential at times. He is not able to clearly state the details of the current situation, likely with a combination of acute metabolic encephalopathy and vascular dementia. At this time I do not believe patient is able to understand the risks and benefits of current or future treatment. Hospital medicine team, including social work, and bedside conversation with both the patient and his brother. As stated above, I do not believe at this time patient is able to understand the risks and benefits of current or future treatment due to both acute metabolic encephalopathy and likely also due to vascular dementia. We had extensive conversations with the patient and brother given patient's progressive decline, severe failure to thrive, remitting and relapsing multiple myeloma, extremely poor oral intake, and brother feels it would be best for patient to be evaluated by hospice team. Hospice care nurse will be in shortly today to evaluate patient. Exam Data for Last 24 hours Vital signs and Labs for Last 24 Hours: Temp Pulse Resp BP Pulse Ox O2 Del Method O2 Flow Rate 97.6 F 72 16 103/55 L 98 Nasal Cannula 2 03/03/24 12:00 03/03/24 12:00 03/03/24 12:00 03/03/24 12:00 03/03/24 12:00 03/03/24 13:00 03/03/24 12:00 Laboratory Results - last 24 hr 03/02/24 15:05: WBC 5.0, RBC 3.41 L, Hgb 11.5 L, Hct 34.5 L, MCV 101.4 H, MCH 33.9 H, MCHC 33.4, RDW 16.1, Plt Count 472 H, MPV 9.2, Neut % (Auto) 78.0, Lymph % (Auto) 13.6, [place] % (Auto) 6.0, Eos % (Auto) 0.9, Baso % (Auto) 1.4, Neut # (Auto) 3.9, Lymph # (Auto) 0.7, [place] # (Auto) 0.3, Eos # (Auto) 0.1, Baso # (Auto) 0.1, Sodium 149 H, Potassium 4.2, Chloride 112 H, Carbon Dioxide 24, Anion Gap 17.2 H, BUN 90 H, Creatinine 1.80 H, Estimated Creat Clear 19, Estimated GFR 37 L, Est GFR ( Amer) 44 L, Glucose 104 H, Calcium 9.0, Magnesium 3.2 H, Total Bilirubin 1.4 H, AST 33, ALT 22, Alkaline Phosphatase 112, Total Creatine Kinase 44 L, Troponin I < 0.01, NT-Pro-B Natriuret Pep 2430 H, Total Protein 6.7, Albumin 2.6 L, Globulin 4.1 H, Albumin/Globulin Ratio 0.6 L, Salicylates < 1.0 L, Acetaminophen < 10 L 03/02/24 15:08: Hepatitis C Antibody Non reactive, HIV 1&2 Antibody Rapid Nonreactive 03/02/24 15:19: VBG pH 7.43 H, VBG pCO2 32.9 L, VBG pO2 35.1, VBG HCO3 21.3 L, VBG Total CO2 22.3 L, VBG O2 Saturation 58.0, VBG Base Excess -3.0 L, VBG Lactic Acid 2.9 H, Urine Color Yellow, Urine Appearance Clear, Urine pH 5.5, Ur Specific [place] 1.020, Urine Protein Negative, Urine Glucose (UA) Negative, Urine Ketones Trace, Urine Blood Negative, Urine Nitrate Negative, Urine Bilirubin Negative, Urine Urobilinogen 1.0, Ur Leukocyte Esterase Negative, Urine RBC 3-5, Urine WBC 5-10, Ur Squamous Epith Cells Occasional, Urine Bacteria 1+, Hyaline Casts 3-5, Urine Mucus 4+ 03/02/24 18:20: Troponin I < 0.01 03/02/24 19:41: Lactate 1.8 03/02/24 21:23: Troponin I < 0.01 03/03/24 05:41: WBC 5.2, RBC 3.04 L, Hgb 10.1 L D, Hct 31.1 L, MCV 102.2 H, MCH 33.8 H, MCHC 33.1, RDW 16.1, Plt Count 370, MPV 8.6, Neut % (Auto) 84.0 H, Lymph % (Auto) 8.3 L, [place] % (Auto) 6.8, Eos % (Auto) 0.5, Baso % (Auto) 0.4, Neut # (Auto) 4.4, Lymph # (Auto) 0.4 L, [place] # (Auto) 0.4, Eos # (Auto) 0.0, Baso # (Auto) 0.0, PT 12.9 H, INR 1.17 H, Sodium 152 H*, Potassium 3.1 L D, Chloride 120 H, Carbon Dioxide 22, Anion Gap 13.1, BUN 58 H D, Creatinine 1.50 H, Estimated Creat Clear 24, Estimated GFR 45 L, Est GFR ( Amer) 55 L D, Glucose 127 H D, Calcium 8.0 L, Phosphorus 4.4, Magnesium 2.8 H D, Total Bilirubin 0.8, AST 28, ALT 20, Alkaline Phosphatase 96, Total Protein 5.7 L, Albumin 2.2 L D, Globulin 3.5 H, Albumin/Globulin Ratio 0.6 L 03/03/24 13:50: Sodium 146 H, Potassium 3.2 L, Chloride 113 H, Carbon Dioxide 24, Anion Gap 12.2, BUN 50 H, Creatinine 1.20, Estimated Creat Clear 29, Estimated GFR 58 L, Est GFR ( Amer) 71 D, Glucose 145 H, Calcium 8.2 L, Total Bilirubin 0.8, AST 34, ALT 24, Alkaline Phosphatase 90, Total Protein 6.4, Albumin 2.4 L, Globulin 4.0 H, Albumin/Globulin Ratio 0.6 L I & O for Last 24 hours: Intake & Output 02/29/24 03/01/24 03/02/24 03/03/24 23:59 23:59 23:59 23:59 Intake Total 1540 / 1540 Output Total 550 / 550 Balance 990 / 990 Weight 41.362 kg 41.75 kg Microbiology Reports for the Last 24 Hours: Microbiology 03/02/24 23:55 Buttock Gram Stain - Preliminary Constitutional Constitutional: no acute distress and cachectic Comments: Unfortunately has very emaciated appearance. *Routine HEENT Exam Head: Present normocephalic Eye: Present EOMI and PERRL ENT: Present mucous membranes moist *Routine Neck Exam Neck: Present supple; Absent lymphadenopathy *Routine Respiratory Exam Respiratory: Present CTA bilaterally *Routine Cardiovascular Exam Cardiovascular: Present RRR *Routine Abdominal Exam Abdominal: Present soft and normoactive bowel sounds; Absent tenderness *Routine Extremities Exam Extremities: Absent cyanosis, clubbing or edema *Routine Skin Exam Skin: Present warm; Absent rash *Routine Neurological Exam Neurological: Present alert and oriented X3 Assessment and Plan *Assessment and plan (1) Failure to thrive: Status: Acute Qualifiers: Failure to thrive age range: in adult Qualified Code(s): R62.7 - Adult failure to thrive Category: Medical Plan Ho Gilbert is a 78-year-old male with a medical history significant for COPD, multiple myeloma, hypertension who 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 Patient at this time is a poor historian due to encephalopathy/confusion. He is able to state that he has been having on and off chest pain recently, and also endorses diarrhea and nausea/vomiting. He states he lives at home by himself and is usually able to ambulate independently. Workup in the ED significant for WBC 5.0, lactic acid 2.9, sodium 149, AGAP 17.2, BUN 90, creatinine 1.8, magnesium 3.2, BNP 2430. CT head shows extensive chronic small vessel ischemic changes. CXR suggestive of multifocal opacities/pneumonia. Case was discussed with ED provider and decision was made to admit patient for failure to thrive, ROLO, dehydration. #Failure to thrive #ROLO, dehydration #Hyperuremia #Hypernatremia #Acute metabolic encephalopathy #Severe protein malnutrition #Multiple myeloma ? Follows with oncology with Dr. Whitmore for multiple myeloma. Recently on Revlimid and Decadron weekly. ? Patient is very emaciated/malnourished appearance, pleasant. BMI 13.2. He is A&O x 2, not time. Able to have somewhat of a conversation, but does mumble incoherently and is tangential at times. He is not able to clearly state the details of the current situation, likely with a combination of acute metabolic encephalopathy and vascular dementia. At this time I do not believe patient is able to understand the risks and benefits of current or future treatment. ? Initial sodium 149, creatinine 1.8 (baseline 1.0), BUN 90, AGAP 17.2. ? Sodium improving to 146, creatinine 1.2, BUN 50, AGAP 12.2 this afternoon after IV fluid resuscitation, including D5W fluids. ? Continue D5W at 150 mL/h. ? Nutrition consulted, providing nutritional supplementations and counseling. ? Cautious for refeeding syndrome. ? PT/OT consulted, recommended SNF. ? Hospital medicine team, including social work, and bedside conversation with both the patient and his brother. As stated above, I do not believe at this time patient is able to understand the risks and benefits of current or future treatment due to both acute metabolic encephalopathy and likely also due to vascular dementia. We had extensive conversations with the patient and brother given patient's progressive decline, severe failure to thrive, remitting and relapsing multiple myeloma, extremely poor oral intake, and brother feels it would be best for patient to be evaluated by hospice team. Hospice care nurse will be in shortly today to evaluate patient. #Sacral ulcer with cellulitis/abscess #Suspected pneumonia ? Patient has a 3 x 4 cm erythematous area draining pus and the sacrum. Tenderness to palpation. ? General Surgery and wound care consulted, recommended daily dressing changes. ? CXR suggests multifocal pneumonia. ? IV Zosyn, azithromycin day 2/5. ? Follow-up blood, wound cultures. #Chest pain ? Serial troponins normal. EKG did not show acute ischemic findings. BNP 2430. Patient does not look volume overloaded, rather volume depleted. ? EKG she does suggest multifocal pneumonia which may be contributing to chest pain. ? Echo reveals normal LV systolic function, mildly reduced RV systolic function. ? Cardiology consulted, no plans for intervention at this time. Suggested elevated BNP may be related to multiple myeloma. #COPD ? Currently stable. ? DuoNebs as needed. #Hypertension ? Resume home medications once reconciled. Full code Lovenox 30
--- NOTE | 2024-03-03 14:59 | HMH.SLDYSPHA ---
Speech & Language Evaluation Speech/Language Dysphagia Evaluation Start: 03/03/24 14:51 Freq: ONCE Status: Active Protocol: Document 03/03/24 14:51 DEVANFILIPAULO (Rec: 03/03/24 14:59 [id number] Dysphagia Assess/Goals/Plan Assessment Date of Evaluation: 03/03/24 Evaluation Type Initial Certification Assessment/Problems dysphagia per MD order Does Patient Qualify for Service No Qualify/Failure Comment Based on clinical observations made throughout CSE, mastication and manipulation of bolus and swallowing appear to be WFL given following recommended diet and use of aspiration precautions and compensatory strategies. No further skilled speech therapy services are warranted at this time. Recommendations PHYSICIAN CERTIFICATION: The specified therapy services are required, authorized, and reviewed every 30 days. Diet Recommendations Mechanical Soft Liquid Type Recommendations Normal/Thin SL Swallow Guidelines Alt bite w/sip thru meal, Standard Aspiration Prec., Crush meds as allowed* Crush Meds Crush all meds Dysphagia Swallow Precautions/Strategies Sitting Upright (90 deg),Small Bites and Sips,Alternate Liquids/Solids Plan Pt/Guardian verbally ack understanding Yes of dx/prognosis/goals G -code Required No Education Instructions provided Discussed CSE results, diet recommendations, aspiration precautions/compensatory strategies with pt and his family, nursing, and care management all of which expressed understanding. Pt/Caregiver able to recall information Able to recall/restate Reinforcement needed No Speech & Language HPI History Present Illness Description of Patient Problem FINISHING OPERATOR pulled following information from chart review and H&P. 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 Patient at this time is a poor historian due to encephalopathy/confusion. He is able to state that he has been having on and off chest pain recently, and also endorses diarrhea and nausea/ vomiting. He states he lives at home by himself and is usually able to ambulate independently. Workup in the ED significant for WBC 5.0, lactic acid 2.9, sodium 149, AGAP 17.2, BUN 90, creatinine 1.8, magnesium 3.2, BNP 2430. CT head shows extensive chronic small vessel ischemic changes. CXR suggestive of multifocal opacities/pneumonia . Case was discussed with ED provider and decision was made to admit patient for failure to thrive, ROLO, dehydration. General Information General Current Food Consistancy Mechanical Soft,Thin Liquids Dentition Edentulous Patient Orientation Person,Place Ability to Follow Directions Good Communication Ability Mild Impairment Dysphagia:Food Presentation Evaluation Dysphagia Evaluation Summary Pt was seen sitting upright in bed following positioning from OT and PT services. FINISHING OPERATOR completed patient and family interview in which they reported mild pocketing at baseline, but no overall feeding concerns. Nursing reported difficulty with medications this morning; stating the pills pocketed in the anterior portion of oral cavity and that pt got choked on scrambled eggs this AM. Pt was seen with MS chopped lunch tray this afternoon. He drank thin liquid water and tea via straw sips with no overt s/ sxs of aspiration. He was administered multiple bites of oatmeal, green beans, pudding , and mashed potatoes with gravy with no overt s/sxs of aspiration nor reported difficulty with this options. Pt also had chopped chicken on tray that he was unable to appropriately masticate to safely swallow even when given smaller chopped pieces and gravy. Given this observation, it is recommended that he be downgraded to mechanical soft, ground diet with continuing thin liquids. Pt, nursing, and family exppressed understanding. No further skilled speech therapy services are warranted at this time. FINISHING OPERATOR will f/u as needed. Stroke Dysphagia Assessment PHYSICIAN CERTIFICATION: I certify the specified therapy services for Ho Gilbert are required, authorized, and reviewed every 30 days.
--- NOTE | 2024-03-03 15:30 | PC.NURSE ---
patient is alert to self and place. remains on 2 LNC, o2 saturations are in the high 90s. patient was unable to swallow morning meds, speech and MD notified. speech evaluated patient this shift, he is now on a ground diet. sacral wound assessed with MD, packed with gauze and dressing applied. voids per purewick. being turned q2 hours. call light within reach, family at bedside.
[2024-03-03] MEDS: AZITHROMYCIN 500 MG in 0.9 % SODIUM CHLORIDE 250 ML 250 MG IV (16:10)
[2024-03-03] MEDS: MVI, ADULT NO.1 WITH VIT K 10 ML, THIAMINE HCL 100 MG, MAGNESIUM SULFATE 2 GM in LACTAT... 75 ML IV (16:59)
[2024-03-03] MEDS: DEXTROSE 5 % IN WATER 1,000 ML 75 ML IV (18:01)
--- NOTE | 2024-03-03 20:56 | PC.NURSE ---
Addendum entered by Katharine Chapman RN 03/04/24 06:55: Patient's dressing (flower foam pad) and packed sterile gauze was changed again this morning after soiling brief. No bleeding was noticed and patient tolerated the dressing change well. Bed linens were changed again. Addendum entered by Katharine Chapman RN 03/04/24 01:49: At 01:47, patient's dressing (flower foam pad) and packed sterile gauze in wound was changed after soiling brief. No bleeding was noticed prior to dressing change. Patient tolerated dressing change very well. Bed linens were also changed. Original Note: At 20:50, patient's dressing (flower foam pad) and packed sterile gauze in wound near anus was changed this shift. Bleeding was noticed prior to dressing change. Patient tolerated dressing change very well.
[2024-03-04] VITALS: BP 113/57; PULSE 59; PULSE 63; RESP 16; O2SAT 94
--- NOTE | 2024-03-04 00:23 | PC.NURSE ---
Addendum entered by Katharine Chapman RN 03/04/24 04:11: A new 20G IV was inserted into the right upper arm by Maryellen Argueta RN. Banana bag infusion resumed. Addendum entered by Katharine Chapman RN 03/04/24 03:34: Patient stated that he wants to rest for a little while before attempting another IV site again. Patient has been left to rest at this time. Another IV access will be attempted as patient allows. Addendum entered by Katharine Chapman RN 03/04/24 03:19: Patient's new 20G IV (right antecubital) started to leak. Banana bag infusion has been stopped again. IV removed at this time. Patient has had a total of 5 IV sticks (failed and successful) this shift thus far. Addendum entered by Katharine Chapman RN 03/04/24 01:23: A new 22G IV was inserted into the right forearm by me. Infusions will be resumed as appropriately. Addendum entered by Katharine Chapman RN 03/04/24 01:15: A new 20G IV was inserted into the right antecubital by Jerry Bull RN. Addendum entered by Katharine Chapman RN 03/04/24 00:28: Patient's second 20G IV site (left antecubital) started to leak as well. Banana bag infusion has been stopped. Original Note: At this time, patient started to complain of wetness down the side of his right arm. Upon assessment, patient's 22G IV (right antecubital) had started to leak. D5W infusion has been stopped. I will attempt to insert a new IV for the patient and resume D5W infusion accordingly.
[2024-03-04] MEDS: PIPERCILLIN/TAZO 3.375 GM in 0.9 % SODIUM CHLORIDE 50 ML IV ×4 (03:02→20:59)
[2024-03-04 04:00] VITALS: BP 108/70; PULSE 62; PULSE 63; RESP 16; TEMP 36.2; O2SAT 94; BMI 14.6
--- NOTE | 2024-03-04 04:54 | PC.NURSE ---
Patient is alert and oriented; however, patient tended to be unaware of the time of day. He is very aware of his situation and cancer diagnosis. Patient was noticed to have appropriate, coherent, but mumbled speech. Patient was awake for most of the night due to frequent staff interventions (brief changes, dressing changes, and IV insertions). Patient has been pleasant and patient with staff; this is much appreciated. Patient has been left to rest since 04:15. Patient had multiple bowel movements this shift. His dressing/packed sterile gauze has been changed two times this shift. Patient had several IV sticks/insertions due to leaking sites ( > 5 sticks). Patient has multiple blown areas on his upper extremities due to failed IV insertion attempts. 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 Left eye is watery with a cloudy sclera. A towel has been placed over the patient's eye whenever room lights are turned on due to complaints of light sensitivity to his eye. He has complained of dryness in his mouth and nose; patient requested to leave off nasal cannula. Patient has tolerated room air fairly this shift, and he has not had any complaints of shortness of breath thus far. Oxygen saturations have remained greater than >90%. Patient's skin to the touch has been between warm/cool this shift; multiple warm blankets and comforters have remained over the patient. Petechiae was noticed on his bilateral thighs. Skin color appears cade. Patient's open wound (pinpoint-like and circular, located near anus) has remained packed over and covered accordingly. He has complained of intermittent chest pain this shift; he has not asked for any pain/chest-relieving medications. He has also complained of soreness in his arms and stiffness in his left leg. Patient's overall appearance is frail. Patient has been repositioned in bed appropriately. A male purewick has remained in place; it has also been changed with brief changes. Bowel movements have been liquified this shift. Upon auscultation, patient's lungs were diminished, S1/S2 heart sounds could be heard, and bowel sounds were active. He has been running normal sinus rhythm on telemetry. Vital signs have been stable this shift with soft blood pressures. He has been drinking ice water at the bedside. He has received his scheduled medications per MAR; banana bag and D5W continue to infuse, both at 75mL/hr per previous MD request. At this time, the patient does not have any further complaints and is resting in bed. No acute changes noted thus far. Call light within reach.
[2024-03-04 06:12] LABS: Basophils % 0.6 % (0.1-2.0); Eosinophils # 0.3 K/mm3 (0.0-0.4); Eosinophils % 5.6 % (0.1-12.0); Hematocrit 30.9 % (42.0-52.0); Hemoglobin 9.8 g/dL (14.1-18.0); Lymphocytes # 0.6 K/mm3 (0.7-4.5); Lymphocytes % 9.9 % (10-50); Mean Corpuscular HGB Conc 31.5 g/dL (31.8-35.4); Mean Corpuscular Hemoglobin 32.9 pg (27.0-31.2); Mean Corpuscular Volume 104.3 fl (80-94); Mean Platelet Volume 8.1 fl (7.4-10.4); Monocytes # 0.4 K/mm3 (0.1-1.0); Neutrophils # 4.4 K/mm3 (1.8-7.8); Platelet Count 390 K/mm3 (142-424); Red Blood Count 2.97 M/mm3 (4.60-6.20); Red Cell Distribution Width 15.8 % (11.5-17.5); White Blood Count 5.7 K/mm3 (4.8-10.8)
[2024-03-04 06:22] LABS: Alanine Aminotransferase 18 U/L (12-78); Albumin/Globulin Ratio 0.6 (1.1-1.8); Alkaline Phosphatase 91 U/L (38-126); Aspartate Amino Transferase 30 U/L (17-59); Bilirubin,Total 0.8 mg/dl (0.2-1.3); Blood Urea Nitrogen 31 mg/dl (9-20); Calcium 7.8 mg/dl (8.4-10.2); Carbon Dioxide 23 mmol/L (22.0-30.0); Chloride 114 mmol/L (98-107); Creatinine Clearance Estimated 36 mL/min (50-200); Estimated Glomerular Filt Rate 65 ml/min (>60); GFR (African American) 78 ML/MIN (>60); Globulin 3.4 g/dL (1.3-3.2); Glucose 98 mg/dl (74-100); Magnesium 2.8 mg/dl (1.6-2.3); Sodium 143 mmol/L (136-145); Total Protein,Serum 5.4 g/dl (6.3-8.2)
--- NOTE | 2024-03-04 06:47 | PC.NURSE ---
Lab called at 06:25 to report a critical potassium value of 3.0. [place] DEL ROSARIO was paged at this time to report the critical lab value. Electrolyte replacement protocol remains in place.
--- NOTE | 2024-03-04 06:56 | PC.NURSE ---
Patient no longer has a purewick in place. Brief remains on.
[2024-03-04 08:00] VITALS: BP 94/55; PULSE 78; PULSE 80; RESP 16; TEMP 36.4; O2SAT 94
[2024-03-04 08:18] LABS: 25-OH Vitamin D, Total < 12.8 ng/mL (30-100)
[2024-03-04 09:07] LABS: Folate 6.51 ng/mL; Vitamin B12 > 1000 pg/mL (239-931)
[2024-03-04 12:00] VITALS: BP 98/54; PULSE 68; PULSE 70; RESP 17; TEMP 36.4; O2SAT 94
[2024-03-04] MEDS: MVI, ADULT NO.1 WITH VIT K 10 ML, THIAMINE HCL 100 MG, MAGNESIUM SULFATE 2 GM in LACTAT... 75 ML IV (12:14)
[2024-03-04] MEDS: ACETAMINOPHEN 325MG/10.15ML UDC 650 MG PO ×2 (14:05→20:58)
--- NOTE | 2024-03-04 14:31 | EXP.PN ---
Subjective *Date: 03/04/24 *Time: 14:31 Exam Data for Last 24 hours Vital signs and Labs for Last 24 Hours: Temp Pulse Resp BP Pulse Ox O2 Del Method O2 Flow Rate 97.6 F 68 17 98/54 L 94 L Room Air 2 03/04/24 12:00 03/04/24 12:00 03/04/24 12:00 03/04/24 12:00 03/04/24 12:00 03/04/24 13:00 03/03/24 21:00 Laboratory Results - last 24 hr 03/04/24 05:20: WBC 5.7, RBC 2.97 L, Hgb 9.8 L, Hct 30.9 L, MCV 104.3 H, MCH 32.9 H, MCHC 31.5 L, RDW 15.8, Plt Count 390, MPV 8.1, Neut % (Auto) 77.0, Lymph % (Auto) 9.9 L, [place] % (Auto) 7.0, Eos % (Auto) 5.6, Baso % (Auto) 0.6, Neut # (Auto) 4.4, Lymph # (Auto) 0.6 L, [place] # (Auto) 0.4, Eos # (Auto) 0.3, Baso # (Auto) 0.0, Sodium 143, Potassium 3.0 L, Chloride 114 H, Carbon Dioxide 23, Anion Gap 9.0, BUN 31 H D, Creatinine 1.10, Estimated Creat Clear 36, Estimated GFR 65, Est GFR ( Amer) 78, Glucose 98 D, Calcium 7.8 L, Magnesium 2.8 H, Total Bilirubin 0.8, AST 30, ALT 18, Alkaline Phosphatase 91, Total Protein 5.4 L, Albumin 2.0 L D, Globulin 3.4 H, Albumin/Globulin Ratio 0.6 L, Vitamin B12 > 1000 H, 25-OH Vitamin D Total < 12.8 L, Folate 6.51 I & O for Last 24 hours: Intake & Output 03/01/24 03/02/24 03/03/24 03/04/24 23:59 23:59 23:59 23:59 Intake Total 2860 / 3839 1489 / 1489 Output Total 825 / 995 170 / 170 Balance 2035 / 2844 1319 / 1319 Weight 41.362 kg 41.75 kg 46.312 kg Microbiology Reports for the Last 24 Hours: Microbiology 03/02/24 23:55 Buttock Gram Stain - Preliminary 03/02/24 23:55 Buttock Wound Culture - Preliminary 03/02/24 15:05 Blood Blood Culture - Preliminary NO GROWTH AFTER 24 HOURS 03/02/24 15:15 Blood Blood Culture - Preliminary NO GROWTH AFTER 24 HOURS Constitutional Constitutional: no acute distress and cachectic Comments: Unfortunately has very emaciated appearance. *Routine HEENT Exam Head: Present normocephalic Eye: Present EOMI and PERRL ENT: Present mucous membranes moist *Routine Neck Exam Neck: Present supple; Absent lymphadenopathy *Routine Respiratory Exam Respiratory: Present CTA bilaterally *Routine Cardiovascular Exam Cardiovascular: Present RRR *Routine Abdominal Exam Abdominal: Present soft and normoactive bowel sounds; Absent tenderness *Routine Extremities Exam Extremities: Absent cyanosis, clubbing or edema *Routine Skin Exam Skin: Present warm; Absent rash *Routine Neurological Exam Neurological: Present alert and oriented X3 Assessment and Plan *Assessment and plan (1) Failure to thrive: Status: Acute Qualifiers: Failure to thrive age range: in adult Qualified Code(s): R62.7 - Adult failure to thrive Category: Medical Plan Ho Gilbert is a 78-year-old male with a medical history significant for COPD, multiple myeloma, hypertension who 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 Patient at this time is a poor historian due to encephalopathy/confusion. He is able to state that he has been having on and off chest pain recently, and also endorses diarrhea and nausea/vomiting. He states he lives at home by himself and is usually able to ambulate independently. Workup in the ED significant for WBC 5.0, lactic acid 2.9, sodium 149, AGAP 17.2, BUN 90, creatinine 1.8, magnesium 3.2, BNP 2430. CT head shows extensive chronic small vessel ischemic changes. CXR suggestive of multifocal opacities/pneumonia. Case was discussed with ED provider and decision was made to admit patient for failure to thrive, ROLO, dehydration. #Failure to thrive #ROLO, dehydration #Hyperuremia #Hypernatremia #Acute metabolic encephalopathy #Severe protein malnutrition #Multiple myeloma ? Follows with oncology with Dr. Whitmore for multiple myeloma. Recently on Revlimid and Decadron weekly. ? Patient is very emaciated/malnourished appearance, pleasant. BMI 13.2. He is A&O x 2, not time. Able to have somewhat of a conversation, but does mumble incoherently and is tangential at times. He is not able to clearly state the details of the current situation, likely with a combination of acute metabolic encephalopathy and vascular dementia. At this time I do not believe patient is able to understand the risks and benefits of current or future treatment. ? Initial sodium 149, creatinine 1.8 (baseline 1.0), BUN 90, AGAP 17.2. ? Sodium improving to 143, creatinine 1.1, BUN 31, AGAP 9.0 this morning after IV fluid resuscitation, including D5W fluids. ?Switched to 1/2 normal saline at 100 mL/h. ? Nutrition consulted, providing nutritional supplementations and counseling. ? Cautious for refeeding syndrome. ? PT/OT consulted, recommended SNF. ? Hospital medicine team, including social work, and bedside conversation with both the patient and his brother. As stated above, I do not believe at this time patient is able to understand the risks and benefits of current or future treatment due to both acute metabolic encephalopathy and likely also due to vascular dementia. We had extensive conversations with the patient and brother given patient's progressive decline, severe failure to thrive, remitting and relapsing multiple myeloma, extremely poor oral intake, and brother feels it would be best for patient to be evaluated by hospice team. Hospice care team will follow-up with us on Wednesday. Case management assisting with long-term assisted living placement. #Sacral ulcer with cellulitis/abscess #Suspected pneumonia ? Patient has a 3 x 4 cm erythematous area draining pus and the sacrum. Tenderness to palpation. ? General Surgery and wound care consulted, recommended daily dressing changes. ? CXR suggests multifocal pneumonia. ? IV Zosyn, azithromycin day 3/5. ? Follow-up blood, wound cultures. #Chest pain ? Serial troponins normal. EKG did not show acute ischemic findings. BNP 2430. Patient does not look volume overloaded, rather volume depleted. ? EKG she does suggest multifocal pneumonia which may be contributing to chest pain. ? Echo reveals normal LV systolic function, mildly reduced RV systolic function. ? Cardiology consulted, no plans for intervention at this time. Suggested elevated BNP may be related to multiple myeloma. #COPD ? Currently stable. ? DuoNebs as needed. #Hypertension ? Resume home medications once reconciled. Full code Lovenox 30
[2024-03-04] MEDS: KCl 10mEq/100ml 100 ML 100 MEQ IV ×4 (15:03→22:20)
[2024-03-04] MEDS: SODIUM CHLORIDE 0.45 % 1,000 ML 100 ML IV (15:04)
[2024-03-04 16:00] VITALS: BP 101/54; PULSE 60; PULSE 63; RESP 16; TEMP 36.4; O2SAT 95
[2024-03-04] MEDS: AZITHROMYCIN 500 MG in 0.9 % SODIUM CHLORIDE 250 ML 250 MG IV (16:30)
[2024-03-04 20:00] VITALS: BP 95/53; PULSE 68; RESP 16; TEMP 36.4; O2SAT 94
[2024-03-05] VITALS (8 sets, daily range): BP systolic 94–110; BP diastolic 48–62; PULSE 60–73; RESP 16–17; TEMP 36.4–37.1; O2SAT 93–97; BMI 14.3
[2024-03-05] MEDS: KCl 10mEq/100ml 100 ML 100 MEQ IV ×4 (00:13→07:00)
[2024-03-05] MEDS: PIPERCILLIN/TAZO 3.375 GM in 0.9 % SODIUM CHLORIDE 50 ML IV ×4 (03:57→20:17)
[2024-03-05] MEDS: ACETAMINOPHEN 325MG/10.15ML UDC 650 MG PO ×3 (05:22→20:13)
[2024-03-05 07:05] LABS: Basophils % 0.6 % (0.1-2.0); Eosinophils # 0.5 K/mm3 (0.0-0.4); Eosinophils % 7.3 % (0.1-12.0); Hematocrit 31.7 % (42.0-52.0); Hemoglobin 10.2 g/dL (14.1-18.0); Lymphocytes # 0.8 K/mm3 (0.7-4.5); Lymphocytes % 10.4 % (10-50); Mean Corpuscular HGB Conc 32.1 g/dL (31.8-35.4); Mean Corpuscular Hemoglobin 33.4 pg (27.0-31.2); Mean Platelet Volume 8.3 fl (7.4-10.4); Monocytes # 0.4 K/mm3 (0.1-1.0); Monocytes % 5.5 % (1.7-9.3); Neutrophils # 5.6 K/mm3 (1.8-7.8); Neutrophils % 76.2 % (37.0-80.0); Platelet Count 472 K/mm3 (142-424); Red Blood Count 3.05 M/mm3 (4.60-6.20); Red Cell Distribution Width 15.8 % (11.5-17.5); White Blood Count 7.4 K/mm3 (4.8-10.8)
[2024-03-05 07:13] LABS: Chloride 114 mmol/L (98-107)
[2024-03-05 07:14] LABS: Albumin Level 2.1 g/dl (3.5-5.0); Potassium 3.8 mmoL/L (3.5-5.1); Sodium 140 mmol/L (136-145)
[2024-03-05 07:16] LABS: Alanine Aminotransferase 18 U/L (12-78); Albumin/Globulin Ratio 0.5 (1.1-1.8); Anion Gap 9.8 mEq/L (5-15); Aspartate Amino Transferase 32 U/L (17-59); Blood Urea Nitrogen 19 mg/dl (9-20); Carbon Dioxide 20 mmol/L (22.0-30.0); Creatinine Clearance Estimated 35 mL/min (50-200); Estimated Glomerular Filt Rate 65 ml/min (>60); GFR (African American) 78 ML/MIN (>60); Globulin 3.9 g/dL (1.3-3.2)
[2024-03-05 07:17] LABS: Alkaline Phosphatase 93 U/L (38-126); Bilirubin,Total 0.6 mg/dl (0.2-1.3); Calcium 7.7 mg/dl (8.4-10.2); Glucose 101 mg/dl (74-100); Magnesium 3.1 mg/dl (1.6-2.3)
[2024-03-05] MEDS: BELLADONNA ALKALOIDS 60 ML ML PO (08:12)
[2024-03-05] MEDS: FOLIC ACID 1MG TABLET 1 MG PO (08:48)
[2024-03-05] MEDS: PANTOPRAZOLE 40MG TABLET 40 MG PO ×2 (08:48→20:13)
[2024-03-05] MEDS: MVI, ADULT NO.1 WITH VIT K 10 ML, THIAMINE HCL 100 MG, MAGNESIUM SULFATE 2 GM in LACTAT... 125 ML IV (11:01)
[2024-03-05] MEDS: SODIUM CHLORIDE 0.45 % 1,000 ML 100 ML IV (11:42)
--- NOTE | 2024-03-05 14:44 | EXP.PN ---
Subjective *Date: 03/05/24 *Time: 14:44 Exam Data for Last 24 hours Vital signs and Labs for Last 24 Hours: Temp Pulse Resp BP Pulse Ox O2 Del Method O2 Flow Rate 97.8 F 73 16 110/62 97 Room Air 2 03/05/24 11:39 03/05/24 11:39 03/05/24 11:39 03/05/24 11:39 03/05/24 11:39 03/05/24 13:00 03/03/24 21:00 Laboratory Results - last 24 hr 03/05/24 06:05: WBC 7.4 D, RBC 3.05 L, Hgb 10.2 L, Hct 31.7 L, MCV 104.0 H, MCH 33.4 H, MCHC 32.1, RDW 15.8, Plt Count 472 H, MPV 8.3, Neut % (Auto) 76.2, Lymph % (Auto) 10.4, [place] % (Auto) 5.5, Eos % (Auto) 7.3, Baso % (Auto) 0.6, Neut # (Auto) 5.6, Lymph # (Auto) 0.8, [place] # (Auto) 0.4, Eos # (Auto) 0.5 H, Baso # (Auto) 0.0, Sodium 140, Potassium 3.8 D, Chloride 114 H, Carbon Dioxide 20 L, Anion Gap 9.8, BUN 19 D, Creatinine 1.10, Estimated Creat Clear 35, Estimated GFR 65, Est GFR ( Amer) 78, Glucose 101 H, Calcium 7.7 L, Magnesium 3.1 H D, Total Bilirubin 0.6, AST 32, ALT 18, Alkaline Phosphatase 93, Total Protein 6.0 L, Albumin 2.1 L, Globulin 3.9 H, Albumin/Globulin Ratio 0.5 L I & O for Last 24 hours: Intake & Output 03/02/24 03/03/24 03/04/24 03/05/24 23:59 23:59 23:59 23:59 Intake Total 2860 / 3839 2369 / 3164 1005 / 1005 Output Total 825 / 995 170 / 170 0 / 0 Balance 2035 / 2844 2199 / 2994 1005 / 1005 Weight 41.362 kg 41.75 kg 46.312 kg 45.405 kg Microbiology Reports for the Last 24 Hours: Microbiology 03/02/24 23:55 Buttock Gram Stain - Preliminary 03/02/24 23:55 Buttock Wound Culture - Preliminary 03/02/24 15:15 Blood Blood Culture - Preliminary NO GROWTH AFTER 48 HOURS 03/02/24 15:05 Blood Blood Culture - Preliminary NO GROWTH AFTER 48 HOURS Constitutional Constitutional: no acute distress and cachectic Comments: Unfortunately has very emaciated appearance. *Routine HEENT Exam Head: Present normocephalic Eye: Present EOMI and PERRL ENT: Present mucous membranes moist *Routine Neck Exam Neck: Present supple; Absent lymphadenopathy *Routine Respiratory Exam Respiratory: Present CTA bilaterally *Routine Cardiovascular Exam Cardiovascular: Present RRR *Routine Abdominal Exam Abdominal: Present soft and normoactive bowel sounds; Absent tenderness *Routine Extremities Exam Extremities: Absent cyanosis, clubbing or edema *Routine Skin Exam Skin: Present warm; Absent rash *Routine Neurological Exam Neurological: Present alert and oriented X3 Assessment and Plan *Assessment and plan (1) Failure to thrive: Status: Acute Qualifiers: Failure to thrive age range: in adult Qualified Code(s): R62.7 - Adult failure to thrive Category: Medical Plan Ho Gilbert is a 78-year-old male with a medical history significant for COPD, multiple myeloma, hypertension who 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 Patient at this time is a poor historian due to encephalopathy/confusion. He is able to state that he has been having on and off chest pain recently, and also endorses diarrhea and nausea/vomiting. He states he lives at home by himself and is usually able to ambulate independently. Workup in the ED significant for WBC 5.0, lactic acid 2.9, sodium 149, AGAP 17.2, BUN 90, creatinine 1.8, magnesium 3.2, BNP 2430. CT head shows extensive chronic small vessel ischemic changes. CXR suggestive of multifocal opacities/pneumonia. Case was discussed with ED provider and decision was made to admit patient for failure to thrive, ROLO, dehydration. #Failure to thrive #ROLO, dehydration #Hyperuremia #Hypernatremia #Acute metabolic encephalopathy #Severe protein malnutrition #Multiple myeloma ? Follows with oncology with Dr. Whitmore for multiple myeloma. Recently on Revlimid and Decadron weekly. ? Patient is very emaciated/malnourished appearance, pleasant. BMI 13.2. He is A&O x 2, not time. Able to have somewhat of a conversation, but does mumble incoherently and is tangential at times. He is not able to clearly state the details of the current situation, likely with a combination of acute metabolic encephalopathy and vascular dementia. At this time I do not believe patient is able to understand the risks and benefits of current or future treatment. ? Initial sodium 149, creatinine 1.8 (baseline 1.0), BUN 90, AGAP 17.2. ? Sodium improving to 140, creatinine 1.1, BUN 19, AGAP 9.0 this morning after IV fluid resuscitation, including D5W fluids. ? Discontinued maintenance fluids. ? Nutrition consulted, providing nutritional supplementations and counseling. ? Cautious for refeeding syndrome. ? PT/OT consulted, recommended SNF. ? Hospital medicine team, including social work, and bedside conversation with both the patient and his brother. As stated above, I do not believe at this time patient is able to understand the risks and benefits of current or future treatment due to both acute metabolic encephalopathy and likely also due to vascular dementia. We had extensive conversations with the patient and brother given patient's progressive decline, severe failure to thrive, remitting and relapsing multiple myeloma, extremely poor oral intake, and brother feels it would be best for patient to be evaluated by hospice team. Hospice care team will follow-up with us on Wednesday. Case management assisting with long-term assisted living placement. #Sacral ulcer with cellulitis/abscess #Suspected pneumonia ? Patient has a 3 x 4 cm erythematous area draining pus and the sacrum. Tenderness to palpation. ? General Surgery and wound care consulted, recommended daily dressing changes. ? CXR suggests multifocal pneumonia. - WBC improved wto 7.4 today. ? IV Zosyn, azithromycin day 4/5. ? Follow-up blood, wound cultures. #Chest pain ? Serial troponins normal. EKG did not show acute ischemic findings. BNP 2430. Patient does not look volume overloaded, rather volume depleted. ? EKG she does suggest multifocal pneumonia which may be contributing to chest pain. ? Echo reveals normal LV systolic function, mildly reduced RV systolic function. ? Cardiology consulted, no plans for intervention at this time. Suggested elevated BNP may be related to multiple myeloma. #COPD ? Currently stable. ? DuoNebs as needed. #Hypertension ? Resume home medications once reconciled. Full code Lovenox 30
[2024-03-05] MEDS: AZITHROMYCIN 500 MG in 0.9 % SODIUM CHLORIDE 250 ML 250 MG IV (15:35)
--- NOTE | 2024-03-05 17:28 | PC.NURSE ---
patient is alert and oriented x3, remains on RA and tolerating well. blood pressures are still slightly hypotensive, MD aware. 1/2 NS infusing at 100 mls/hr. has had frequent loose, yellow BM this shift. voids per urinal and brief. he has refused some meds throughout shift. he has been resting majority of the day. tolerates diet well but only eats around 15%-20% of meals. has frequent sips of water throughout the day. family at bedside at this time.
--- NOTE | 2024-03-05 19:15 | PC.NURSE ---
Tech reported pt left forearm is swollen. IV to left FA appears to be infiltrated. IV removed. FA wrapped in warm cloth and elevated at this time.
[2024-03-06] VITALS: BP 93/51; PULSE 60; PULSE 63; RESP 16; TEMP 36.4; O2SAT 96
[2024-03-06] MEDS: PIPERCILLIN/TAZO 3.375 GM in 0.9 % SODIUM CHLORIDE 50 ML IV ×2 (02:19→08:56)
[2024-03-06 04:00] VITALS: BP 114/58; PULSE 60; PULSE 68; RESP 14; TEMP 36.7; O2SAT 97; BMI 14.5
[2024-03-06] MEDS: ACETAMINOPHEN 325MG/10.15ML UDC 650 MG PO (04:18)
[2024-03-06 06:47] LABS: Alanine Aminotransferase 18 U/L (12-78); Albumin/Globulin Ratio 0.6 (1.1-1.8); Alkaline Phosphatase 95 U/L (38-126); Anion Gap 10.6 mEq/L (5-15); Aspartate Amino Transferase 30 U/L (17-59); Bilirubin,Total 0.6 mg/dl (0.2-1.3); Blood Urea Nitrogen 16 mg/dl (9-20); Calcium 7.6 mg/dl (8.4-10.2); Carbon Dioxide 16 mmol/L (22.0-30.0); Chloride 119 mmol/L (98-107); Creatinine Clearance Estimated 35 mL/min (50-200); Estimated Glomerular Filt Rate 65 ml/min (>60); GFR (African American) 78 ML/MIN (>60); Globulin 3.6 g/dL (1.3-3.2); Glucose 94 mg/dl (74-100); Magnesium 2.6 mg/dl (1.6-2.3); Potassium 3.6 mmoL/L (3.5-5.1); Sodium 142 mmol/L (136-145); Total Protein,Serum 5.6 g/dl (6.3-8.2)
[2024-03-06 07:53] LABS: Basophils % 0.5 % (0.1-2.0); Eosinophils # 0.6 K/mm3 (0.0-0.4); Eosinophils % 6.8 % (0.1-12.0); Hematocrit 30.4 % (42.0-52.0); Hemoglobin 9.8 g/dL (14.1-18.0); Lymphocytes # 0.8 K/mm3 (0.7-4.5); Lymphocytes % 9.3 % (10-50); Mean Corpuscular HGB Conc 32.4 g/dL (31.8-35.4); Mean Corpuscular Hemoglobin 33.2 pg (27.0-31.2); Mean Corpuscular Volume 102.5 fl (80-94); Mean Platelet Volume 8.1 fl (7.4-10.4); Monocytes # 0.6 K/mm3 (0.1-1.0); Neutrophils # 6.4 K/mm3 (1.8-7.8); Neutrophils % 76.5 % (37.0-80.0); Platelet Count 560 K/mm3 (142-424); Red Blood Count 2.97 M/mm3 (4.60-6.20); Red Cell Distribution Width 15.6 % (11.5-17.5); White Blood Count 8.4 K/mm3 (4.8-10.8)
[2024-03-06 08:00] VITALS: BP 98/55; PULSE 60; PULSE 67; RESP 18; TEMP 36.5; O2SAT 98
--- NOTE | 2024-03-06 08:11 | EXP.PHA.PN ---
Subjective *Date: 03/06/24 *Time: 08:11 Medical Exam Vital signs and Labs for Last 24 Hours: Vital Signs Temp Pulse Pulse Resp BP Pulse Ox O2 Del Method 03/06/24 06:29 Room Air 03/06/24 04:29 Room Air 03/06/24 04:00 60 03/06/24 04:00 98.1 F 68 14 114/58 L 97 Room Air 03/06/24 03:00 Room Air 03/06/24 00:44 Room Air 03/06/24 00:00 60 03/06/24 00:00 97.5 F L 63 16 93/51 L 96 Room Air 03/05/24 23:00 Room Air 03/05/24 21:00 Room Air 03/05/24 20:00 60 03/05/24 20:00 98.8 F 65 16 94/48 L 95 Room Air 03/05/24 19:34 Room Air 03/05/24 18:39 Room Air 03/05/24 17:00 Room Air 03/05/24 16:00 70 03/05/24 16:00 97.7 F 67 16 98/56 L 95 Room Air 03/05/24 15:00 Room Air 03/05/24 13:00 Room Air 03/05/24 12:00 70 03/05/24 11:39 97.8 F 73 16 110/62 97 Room Air 03/05/24 11:00 Room Air 03/05/24 09:00 Room Air Intake and Output 03/05/24 03/06/24 03/06/24 23:59 07:59 15:59 Intake Total 1710 / 2715 Output Total 100 / 150 50 / 50 Balance 1610 / 2565 -50 / -50 Intake: Intake, Oral Amount 360 / 640 Intake, Total IV Amount 1350 / 2075 Azithromycin 500 mg In 0.9 % 250 / 250 Sodium Chloride 250 ml @ 250 mls/hr IV Q24H [facility] Rx#:[id number] Mvi, Adult No.1 with Vit K 10 500 / 875 ml Thiamine HCl 100 mg Magnesium Sulfate 2 gm In Lactated Ringers 1000ML 1,000 ml @ 125 mls/hr IV DAILY [facility] Rx #:[id number] Pipercillin/Tazo 3.375 gm In 0. 100 / 150 9 % Sodium Chloride 50 ml @ 100 mls/hr IV Q6H [facility] Rx#:[id number] Sodium Chloride 0.45 % 1,000 ml 500 / 500 @ 50 mls/hr IV .Q20H [facility] Rx#: [id number] Output: Output, Urine Amount 100 / 150 50 / 50 Other: Number of Unmeasured Voids 1 100 Number of Bowel Movements 1 1 Weight 45.949 kg Patient Weight 03/06/24 23:59 Weight 45.949 kg Laboratory Results - last 24 hr 03/06/24 06:05: WBC 8.4, RBC 2.97 L, Hgb 9.8 L, Hct 30.4 L, MCV 102.5 H, MCH 33.2 H, MCHC 32.4, RDW 15.6, Plt Count 560 H, MPV 8.1, Neut % (Auto) 76.5, Lymph % (Auto) 9.3 L, [place] % (Auto) 7.0, Eos % (Auto) 6.8, Baso % (Auto) 0.5, Neut # (Auto) 6.4, Lymph # (Auto) 0.8, [place] # (Auto) 0.6, Eos # (Auto) 0.6 H, Baso # (Auto) 0.0, Sodium 142, Potassium 3.6, Chloride 119 H, Carbon Dioxide 16 L, Anion Gap 10.6, BUN 16, Creatinine 1.10, Estimated Creat Clear 35, Estimated GFR 65, Est GFR ( Amer) 78, Glucose 94, Calcium 7.6 L, Magnesium 2.6 H D, Total Bilirubin 0.6, AST 30, ALT 18, Alkaline Phosphatase 95, Total Protein 5.6 L, Albumin 2.0 L, Globulin 3.6 H, Albumin/Globulin Ratio 0.6 L I & O for Labs for Last 24 Hours: Intake & Output 03/03/24 03/04/24 03/05/24 03/06/24 23:59 23:59 23:59 23:59 Intake Total 2860 / 3839 2369 / 3164 2715 / 2715 Output Total 825 / 995 170 / 170 100 / 150 50 / 50 Balance 2035 / 2844 2199 / 2994 2615 / 2565 -50 / -50 Weight 41.75 kg 46.312 kg 45.405 kg 45.949 kg Microbiology Reports for the Last 24 Hours: Microbiology 03/02/24 23:55 Buttock Gram Stain - Preliminary 03/02/24 23:55 Buttock Wound Culture - Preliminary The patient's infection will respond to the chosen ABx?: Yes Is the patient receiving the right drug, dose, and route?: Yes Could a more targeted ABx be ordered?: No (PATIENT WBC WNL AND AFEBRILE, CONTINUE CURRENT ABX REGIMEN.)
[2024-03-06] MEDS: FOLIC ACID 1MG TABLET 1 MG PO (08:56)
--- NOTE | 2024-03-06 11:24 | P.DS_ITS ---
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 Patient at this time is a poor historian due to encephalopathy/confusion. He is able to state that he has been having on and off chest pain recently, and also endorses diarrhea and nausea/vomiting. He states he lives at home by himself and is usually able to ambulate independently. Workup in the ED significant for WBC 5.0, lactic acid 2.9, sodium 149, AGAP 17.2, BUN 90, creatinine 1.8, magnesium 3.2, BNP 2430. CT head shows extensive chronic small vessel ischemic changes. CXR suggestive of multifocal opacities/pneumonia. Case was discussed with ED provider and decision was made to admit patient for failure to thrive, ROLO, dehydration. 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 Patient at this time is a poor historian due to encephalopathy/confusion. He is able to state that he has been having on and off chest pain recently, and also endorses diarrhea and nausea/vomiting. He states he lives at home by himself and is usually able to ambulate independently. Workup in the ED significant for WBC 5.0, lactic acid 2.9, sodium 149, AGAP 17.2, BUN 90, creatinine 1.8, magnesium 3.2, BNP 2430. CT head shows extensive chronic small vessel ischemic changes. CXR suggestive of multifocal opacities/pneumonia. Case was discussed with ED provider and decision was made to admit patient for failure to thrive, ROLO, dehydration. #Failure to thrive #ROLO, dehydration #Hyperuremia #Hypernatremia #Acute metabolic encephalopathy #Severe protein malnutrition #Multiple myeloma #Vascular dementia ? Follows with oncology with Dr. Whitmore for multiple myeloma. Recently on Revlimid and Decadron weekly. ? Patient is very emaciated/malnourished appearance, pleasant. BMI 13.2. He is A&O x 2, not time. Able to have somewhat of a conversation, but does mumble incoherently and is tangential at times. He is not able to clearly state the details of the current situation, likely with vascular dementia. At this time I do not believe patient is able to understand the risks and benefits of current or future treatment. ? Initial sodium 149, creatinine 1.8 (baseline 1.0), BUN 90, AGAP 17.2. ? Clinically improved with IV fluids including D5 and banana bag, vitamins and reintroducing diet. Sodium 142, creatinine 1.1, BUN 16, AGAP 9.0. ? Nutrition consulted, providing nutritional supplementations and counseling. ? Cautious for refeeding syndrome. ? Hospital medicine team, including social work, and bedside conversation with both the patient and his brother. As stated above, I do not believe at this time patient is able to understand the risks and benefits of current or future treatment due to both acute metabolic encephalopathy and likely also due to vascular dementia. We had extensive conversations with the patient and brother given patient's progressive decline, severe failure to thrive, remitting and relapsing multiple myeloma, extremely poor oral intake, and brother feels it would be best for patient to be evaluated by hospice team. Hospice care team agreed with hospice recommendation. - [facility] graciously except patient with hospice today. Will be discharged for further evaluation by the hospice team there. #Sacral ulcer with cellulitis/abscess #Suspected pneumonia ? Patient has a 3 x 4 cm erythematous area draining pus and the sacrum. Tenderness to palpation. ? General Surgery and wound care consulted, recommended daily dressing changes. ? CXR suggests multifocal pneumonia. - Received 5 days of antibiotics including Zosyn, azithromycin. WBC resolved to 8.4. - Wound cultures growing gram-positive cocci. Covered with Zosyn for 5 days. Will discharge with Augmentin for 5 more days. #Chest pain ? Serial troponins normal. EKG did not show acute ischemic findings. BNP 2430. Patient does not look volume overloaded, rather volume depleted. ? EKG she does suggest multifocal pneumonia which may be contributing to chest pain. ? Echo reveals normal LV systolic function, mildly reduced RV systolic function. ? Cardiology consulted, no plans for intervention at this time. Suggested elevated BNP may be related to multiple myeloma. #COPD ? Currently stable. ? DuoNebs as needed. #Hypertension ?Discontinue amlodipine due to soft pressures and systolics in the 90-100s. Exam Data for Last 24 hours Vital signs and Labs for Last 24 Hours: Temp Pulse Resp BP Pulse Ox O2 Del Method O2 Flow Rate 97.7 F 67 18 98/55 L 98 Room Air 2 03/06/24 08:00 03/06/24 08:00 03/06/24 08:00 03/06/24 08:00 03/06/24 08:00 03/06/24 10:57 03/03/24 21:00 Laboratory Results - last 24 hr 03/06/24 06:05: WBC 8.4, RBC 2.97 L, Hgb 9.8 L, Hct 30.4 L, MCV 102.5 H, MCH 33.2 H, MCHC 32.4, RDW 15.6, Plt Count 560 H, MPV 8.1, Neut % (Auto) 76.5, Lymph % (Auto) 9.3 L, Power % (Auto) 7.0, Eos % (Auto) 6.8, Baso % (Auto) 0.5, Neut # (Auto) 6.4, Lymph # (Auto) 0.8, Power # (Auto) 0.6, Eos # (Auto) 0.6 H, Baso # (Auto) 0.0, Sodium 142, Potassium 3.6, Chloride 119 H, Carbon Dioxide 16 L, Anion Gap 10.6, BUN 16, Creatinine 1.10, Estimated Creat Clear 35, Estimated GFR 65, Est GFR ( Amer) 78, Glucose 94, Calcium 7.6 L, Magnesium 2.6 H D, Total Bilirubin 0.6, AST 30, ALT 18, Alkaline Phosphatase 95, Total Protein 5.6 L, Albumin 2.0 L, Globulin 3.6 H, Albumin/Globulin Ratio 0.6 L I & O for Last 24 hours: Intake & Output 03/03/24 03/04/24 03/05/24 03/06/24 23:59 23:59 23:59 23:59 Intake Total 2860 / 3839 2369 / 3164 2715 / 2715 120 / 120 Output Total 825 / 995 170 / 170 100 / 150 50 / 50 Balance 2035 / 2844 2199 / 2994 2615 / 2565 70 / 70 Weight 41.75 kg 46.312 kg 45.405 kg 45.949 kg Microbiology Reports for the Last 24 Hours: Microbiology 03/02/24 23:55 Buttock Gram Stain - Final 03/02/24 23:55 Buttock Wound Culture - Preliminary Gram Positive Cocci Gram Positive Cocci#2 Gram Positive Cocci#3 Constitutional Constitutional: no acute distress and cachectic Comments: Unfortunately has very emaciated appearance. *Routine HEENT Exam Head: Present normocephalic Eye: Present EOMI and PERRL ENT: Present mucous membranes moist *Routine Neck Exam Neck: Present supple; Absent lymphadenopathy *Routine Respiratory Exam Respiratory: Present CTA bilaterally *Routine Cardiovascular Exam Cardiovascular: Present RRR *Routine Abdominal Exam Abdominal: Present soft and normoactive bowel sounds; Absent tenderness *Routine Extremities Exam Extremities: Absent cyanosis, clubbing or edema *Routine Skin Exam Skin: Present warm; Absent rash *Routine Neurological Exam Neurological: Present alert and oriented X3 Results Data Completed and Pending Labs on day of discharge: Labs from last 24 hours 03/06/24 06:05 WBC 8.4 RBC 2.97 L Hgb 9.8 L Hct 30.4 L MCV 102.5 H MCH 33.2 H MCHC 32.4 RDW 15.6 Plt Count 560 H MPV 8.1 Neut % (Auto) 76.5 Lymph % (Auto) 9.3 L Power % (Auto) 7.0 Eos % (Auto) 6.8 Baso % (Auto) 0.5 Neut # (Auto) 6.4 Lymph # (Auto) 0.8 Power # (Auto) 0.6 Eos # (Auto) 0.6 H Baso # (Auto) 0.0 Sodium 142 Potassium 3.6 Chloride 119 H Carbon Dioxide 16 L Anion Gap 10.6 BUN 16 Creatinine 1.10 Estimated Creat Clear 35 Estimated GFR 65 Est GFR ( Amer) 78 Glucose 94 Calcium 7.6 L Magnesium 2.6 H D Total Bilirubin 0.6 AST 30 ALT 18 Alkaline Phosphatase 95 Total Protein 5.6 L Albumin 2.0 L Globulin 3.6 H Albumin/Globulin Ratio 0.6 L Preliminary micro results at discharge 03/02/24 23:55 Wound Culture - Preliminary Buttock Gram Positive Cocci Gram Positive Cocci#2 Gram Positive Cocci#3 03/02/24 15:15 Blood Culture - Preliminary Blood NO GROWTH AFTER 48 HOURS 03/02/24 15:05 Blood Culture - Preliminary Blood NO GROWTH AFTER 48 HOURS DS: Diagnosis Discharge Diagnosis (1) Failure to thrive: Status: Acute Qualifiers: Failure to thrive age range: in adult Qualified Code(s): R62.7 - Adult failure to thrive Meds Home Medications and Allergies Home Medications ?Medication ?Instructions ?Recorded ?Confirmed ?Type amoxicillin 500 mg-potassium 1 tab PO BID 5 days #10 tabs 03/06/24 Rx clavulanate 125 mg tablet (Augmentin) cholecalciferol (vitamin D3) 25 100 mcg (4 x 25 mcg (1,000 unit)) 03/06/24 Rx mcg (1,000 unit) tablet PO DAILY 30 days #120 tabs folic acid 1 mg tablet 1 mg PO DAILY 30 days #30 tabs 03/06/24 Rx New Prescriptions to Start Prescriptions: amoxicillin-pot clavulanate [Augmentin] Kalin Laguna cholecalciferol (vitamin D3) Kalin Laguna folic acid Kalin Laguna Allergies Allergy/AdvReac Type Severity Reaction Status Date / Time No Known Allergies Allergy Verified 02/10/24 11:40 Discharge Plan Disposition Patient Disposition: Hospice - Medical Facility Discharge Order Discharge Orders: Discharge Order (Routine); Ordered 03/06/24 Ordered By: Kalin Laguna Follow up Plan Prescriptions/Medication Reconciliation: New folic acid 1 mg Tablet 1 mg PO DAILY 30 Days Qty: 30 0RF cholecalciferol (vitamin D3) 25 mcg (1,000 unit) Tablet 100 mcg PO DAILY 30 Days Qty: 120 0RF amoxicillin-pot clavulanate [Augmentin] 500-125 mg tablet 1 tab PO BID 5 Days Qty: 10 0RF Discontinued gabapentin 600 mg tablet 600 mg PO BID Qty: 60 2RF acetaminophen-codeine 300-30 mg tablet 1 tab PO Q6H PRN (Reason: pain) Qty: 120 0RF clonazepam 0.5 mg tablet 0.5 mg PO DAILY Qty: 30 2RF torsemide 20 mg tablet 20 mg PO DAILY PRN (Reason: FLUID RETENTION) Qty: 30 1RF hydroxyzine HCl 25 mg tablet 25 mg PO HSP PRN (Reason: Itching) amlodipine 10 mg tablet 10 mg PO DAILY Patient Comments: TAKE ONE TABLET BY MOUTH EVERY DAY lenalidomide [Revlimid] 10 mg capsule 10 mg PO DIRECTED Problem Reconciliation Problems Reviewed?: Yes Patient Discharge Instructions Patient Instructions: DI for Dehydration -- Adult, DI for Pneumonia -- Adult, DI for Acute Kidney Injury Print Language: [place] Providers Primary Care Provider: Provider,Referral Admit Provider: Kalin Laguna Attending Provider: Kalin Laguna
[2024-03-06 12:00] VITALS: BP 112/52; PULSE 80; RESP 18; TEMP 36.9; O2SAT 99
== END 2024-03-06 12:58 | disposition hospice, inpatient (51) | DRG 193 ==
LOC: ER 15:59 → 2ND 16:27
PROVIDERS: Nurse Practitioner Family; Admitting Provider Student in an Organized Health Care Education/Training Program; Emergency Provider Student in an Organized Health Care Education/Training Program; Visit Provider Student in an Organized Health Care Education/Training Program
DX: J18.9 Pneumonia, unspecified organism (principal); E43 Unspecified severe protein-calorie malnutrition; G93.41 Metabolic encephalopathy; L02.91 Cutaneous abscess, unspecified; C90.00 Multiple myeloma not having achieved remission; Z68.1 Body mass index [BMI] 19.9 or less, adult; N17.9 Acute kidney failure, unspecified; J44.0 Chronic obstructive pulmonary disease with (acute) lower respiratory infection; E87.0 Hyperosmolality and hypernatremia; L03.319 Cellulitis of trunk, unspecified; L02.212 Cutaneous abscess of back [any part, except buttock and flank]; R62.7 Adult failure to thrive; E86.0 Dehydration; I10 Essential (primary) hypertension; J44.9 Chronic obstructive pulmonary disease, unspecified; R63.4 Abnormal weight loss; F01.50 Vascular dementia, unspecified severity, without behavioral disturbance, psychotic disturbance, mood disturbance, and anxiety; L98.429 Non-pressure chronic ulcer of back with unspecified severity
CPT/HCPCS: 36415; 70450; 71045; 80053; 80329; 81001; 82306; 82550; 82607; 82746; 82803; 83605; 83735; 83880; 84100; 84484; 85025; 85610; 86803; 87040; 87070; 87077; 87186; 87205; 87389; 92610; 93005; 93306; 97116; 97163; 97165; 97530; 97535; 99291; J0456; J0696; J1650; J2543; J3411; J3480; J7030; J7050; J7060; J7120